=== PATIENT | female | born 1955 ===

== ENCOUNTER 2017-05-16 17:55 | Inpatient (IN) | payer MEDICARE ==
[2017-05-16 17:55] VITALS: BMI 31.6
[2017-05-16] MEDS ORDERED: Albuterol-Ipratrop 3 mg / 0.5 (3 ml) UD ONE (18:19)
[2017-05-16] MEDS ORDERED: Albuterol-Ipratrop 3 mg / 0.5 (3 ml) UD INH STA (18:34)
[2017-05-16 19:04] LABS: BASO # 0.1 K/uL (0.0-0.2); BASO % 0.8 % (0.0-2.0); EOS # 0.6 K/uL (0.0-0.7); EOS % 6.6 % (0.0-4.0); HEMATOCRIT 41.5 % (34.0-47.0); LYMPH # 3.2 K/uL (1.0-4.3); LYMPH % 36.5 % (20.0-40.0); MEAN CELL VOLUME 89.6 fl (81.0-99.0); MEAN CORPUSCULAR HEMOGLOBIN 29.9 pg (27.0-31.0); MEAN CORPUSCULAR HGB CONC 33.4 g/dL (33.0-37.0); MEAN PLATELET VOLUME 8.2 fl (7.2-11.7); MONO # 0.7 K/uL (0.0-0.8); MONO % 7.6 % (0.0-10.0); NEUT # 4.3 K/uL (1.8-7.0); NEUT % 48.5 % (50.0-75.0); NRBC % 0.1 % (0.0-0.0); WHITE BLOOD COUNT 8.8 K/uL (4.8-10.8)
[2017-05-16 19:20] LABS: ALB/GLOB RATIO 1.3 (1.0-2.1); BILIRUBIN,TOTAL 0.6 mg/dl (0.2-1.3); CALCIUM 9.1 mg/dL (8.4-10.2); CARBON DIOXIDE 27 mmol/L (22-30); CHLORIDE 105 mmol/L (98-107); GFR AFRICAN-AMERICAN > 60; GLUCOSE,RANDOM 150 mg/dL (65-105); SODIUM 140 mmol/l (132-148); TOTAL PROTEIN 7.4 G/DL (6.3-8.2)
--- NOTE | 2017-05-16 19:23 | ED PDOC ---
HPI: SOB/CHF/COPD Time Seen by Provider: 05/16/17 18:06 Chief Complaint (Nursing): Respiratory Distress Chief Complaint (Provider): Shotness of Breath History Per: Patient History/Exam Limitations: no limitations Onset/Duration Of Symptoms: Days (x 4) Current Symptoms Are (Timing): Still Present Additional Complaint(s): 61 year old female with a past medical history of hypertension, diabetes, and hypercholesterolemia who presents to the emergency department complaining shortness of breath and asthma for 4 days. Associated with cough and green sputum. Patient reports shortness of breath worsened despite taking medications at home, as well as chills and chest tightness. Denies fever, nasal discharge, sore throat, chest pain and leg swelling. PMD: Dr Kenneth Hughes MD Past Medical History Reviewed: Historical Data, Nursing Documentation, Vital Signs Vital Signs: Last Vital Signs Temp 98.2 F 05/16/17 20:40 Pulse 79 05/16/17 23:05 Resp 18 05/16/17 23:05 BP 123/67 05/16/17 23:05 Pulse Ox 95 05/16/17 23:05 - Medical History PMH: Anxiety, Asthma, Bipolar Disorder, Depression, Diabetes, Diverticulitis, Gastritis, HTN, Hypercholesterolemia Denies: Chronic Kidney Disease - Surgical History Other surgeries: Cardiac Catheterization - Family History Family History: States: Diabetes, Hypertension - Social History Current smoker - smoking cessation education provided: No Alcohol: None Drugs: Denies - Home Medications Home Medications: Ambulatory Orders Medication Instructions Recorded Aspirin 81 mg PO HS 10/20/14 Budesonide/Formoterol Fumarate 2 puff IH BID 10/20/14 [Symbicort] Calcium/Vitamin D [Calcium + D 600 1 tab PO BID 10/20/14 mg-200 Iu] Montelukast [Singulair] 10 mg PO HS 10/20/14 Omeprazole [Prilosec] 40 mg PO DAILY 10/20/14 Atorvastatin Calcium [Lipitor] 40 mg PO DAILY #0 tab 10/21/14 Albuterol HFA [Ventolin HFA 90 90 mcg PO PRN PRN 30 Days 01/24/17 mcg/actuation (8 g)] Lisinopril [Zestril] 40 mg PO DAILY #30 01/24/17 Mometasone/Formoterol [Dulera 200 13 gm IH Q12 #1 hfa.aer.ad 01/24/17 Mcg/5 Mcg Inhaler] hydroCHLOROthiazide [Hydrodiuril] 25 mg PO DAILY #30 01/24/17 metFORMIN [glucOPHAGE] 500 mg PO BID #30 01/24/17 - Allergies Allergies/Adverse Reactions: Allergies Allergy/AdvReac Type Severity Reaction Status Date / Time iodine Allergy RASH Verified 05/16/17 20:31 Review of Systems ROS Statement: Except As Marked, All Systems Reviewed And Found Negative (as per HPI otherwise negative) Constitutional: Positive for: Chills. Negative for: Fever ENT: Negative for: Nose Discharge, Throat Pain (Sore throat) Cardiovascular: Positive for: Other (Chest tightness). Negative for: Chest Pain Respiratory: Positive for: Cough, Shortness of Breath, Sputum (Green) Musculoskeletal: Negative for: Leg Pain (Swelling) Physical Exam - Reviewed Nursing Documentation Reviewed: Yes Vital Signs Reviewed: Yes - Physical Exam Appears: Positive for: Non-toxic, In Acute Distress (moderate respiratory) Head Exam: Positive for: ATRAUMATIC, NORMOCEPHALIC Skin: Positive for: Warm, Dry Eye Exam: Positive for: EOMI, PERRL ENT: Positive for: Pharyngeal Erythema. Negative for: Tonsillar Exudate, Tonsillar Swelling Neck: Positive for: Limited ROM (tenderness LEFT posterior cervical area, reported as ongoing for months and has had lymphadenopathy at this area), Trachea Midline Cardiovascular/Chest: Positive for: Regular Rate, Rhythm, Chest Non Tender. Negative for: Murmur Respiratory: Positive for: Wheezing, Respiratory Distress. Negative for: Rales , Rhonchi Gastrointestinal/Abdominal: Positive for: Soft. Negative for: Tenderness Back: Positive for: Normal Inspection. Negative for: Decreased ROM Extremity: Positive for: Normal ROM. Negative for: Calf Tenderness Lymphatic: Negative for: Adenopathy Neurologic/Psych: Positive for: Alert, Mood/Affect (anxious affect). Negative for: Motor/Sensory Deficits - Laboratory Results Result Diagrams: 05/16/17 18:59 05/16/17 18:59 - ECG O2 Sat by Pulse Oximetry: 94 (RA) Pulse Ox Interpretation: Normal - Progress Re-evaluation Time: 20:00 Condition: Unchanged (IV Magnesium ordered) - Critical Care Total Time (In Min): 30 Documented Critical Care: Time excludes all time spent performint seperately billable procedures Medical Decision Making Medical Decision Making: Time: 1800 Initial Impression: Asthma exacerbation, differential diagnoses also include but are not limited to pneumonia, pleural effusion, status asthmaticus, congestive heart failure, and Acute Coronary Syndrome Initial plan: Time: 18:33 - Chest X-Ray -EKG -Duoneb 9 ml INH -methylprednisolone 125 mg IVP -cardiac Monitoring -accucheck Time: 1858 -Labs -Partial thromboplastin -Prothrombin -Blood culture -Influenza A B Influenza A B -Negative Time: 2024 Admit to hospital under observation in telemetry for status asthmaticus under the care of Dr. Jesika Jones Scribe Attestation: Documented by Flakita Stone, acting as a scribe for Nancy Dixon MD. Provider Scribe Attestation: All medical record entries made by the Scribe were at my direction and personally dictated by me. I have reviewed the chart and agree that the record accurately reflects my personal performance of the history, physical exam, medical decision making, and the department course for this patient. I have also personally directed, reviewed, and agree with the discharge instructions and disposition. Disposition - Clinical Impression Clinical Impression: Acute respiratory distress, Asthma with severe exacerbation - Patient ED Disposition Is Patient to be Admitted: Yes Discussed With : Mahesh Bowling Comment: FP resident Doctor Will See Patient In The: ED Counseled Patient/Family Regarding: Studies Performed, Diagnosis - Disposition Disposition: Transfer of Care (to observation in telemetry under the care of Dr. Jesika Jones) Disposition Time: 20:25 Condition: SERIOUS - Pt Status Changed To: Hospital Disposition Of: Observation - POA Present On Arrival: None
[2017-05-16 19:26] LABS: PARTIAL THROMBOPLASTIN TIME 30.6 Seconds (25.6-37.1)
[2017-05-16 19:30] LABS: ALKALINE PHOSPHATASE 75 U/L (38-126); ALT/SGPT 33 U/L (9-52); AST/SGOT 29 U/L (14-36); BLOOD UREA NITROGEN 20 mg/dl (7-17); MAGNESIUM 2.1 MG/DL (1.6-2.3); PHOSPHOROUS 3.5 mg/dl (2.5-4.5); POTASSIUM 4.8 MMOL/L (3.6-5.0)
[2017-05-16] MEDS ORDERED: Magnesium Sulfate 2 gm/50 ml 2 GM/50 ML BAG IVPB STA (20:20)
--- NOTE | 2017-05-16 21:33 | CP.PCM.HP ---
History of Present Illness - History of Present Illness History of Present Illness: 61 y/o female with a PMHx of mild persistent asthma, HTN, HLD, GERD, NIDDM2, and Bipolar disorder presents to [facility] ED with a CC of SOB. Pt reports SOB began approx 4 days ago w/o any triggering event/exposure. She reports she was using her medications as prescribed and they were some what alleviating the SOB, hence the delay in presentation. Today she realized the SOB was getting worse, and she had an associated chest tightness and minimally productive cough. She reports she felt as if "she couldnt get enough air resting or walk to her bathroom" so she came in for evaluation. She denies any recent URIs, sick contacts, exposure to allergens, medical noncompliance. She denies any fever/ chills, rhinorhea, sore throat, lightheadedness, CP/Palpitations, N/V/D/C, numbness/tingling, calf pain. ROS: as per HPI, all other systems reviewed found to be negative PMD: Dr. Kenneth Hughes PMHx: Mild Persistent Asthma, NIDDM2, HTN, HLD, Bipolar Disorder Medications: Symbicort 2puff BID, Ventolin 90mcg , Montelukast 10mg PO QD, Omeprazole 20mg PO BID, HCTZ 25mg PO QD, Lisinopril 40mg PO QD, Metformin 500mg PO BID ALL: iodine, season allergies, dust/mold PSurgHx: Hysterectomy, LUQ Lipoma excision, Oophorectomy, Cardiac Cath PHospHx: reports being admitted 2 times this year (2017) for asthma exacerbations, reports tx with magnesium and steroids, denies intubation/ICU. SocialHx: denies tobacco abuse, ETOH/drugs; lives alone, daughter lives in [place], son lives in [place] Contact: son: JENNIFER Becker [phone] FamilyHx: Mother at 84-cardiac arrest/DM Type 2; Father at 70-liver failure/hepatitis, siblings with HTN and asthma ED Course: Vitals on Presentation: T 97.9, HR 81, RR 22, BP 156/83, POX 90% RA Labs CBC: 8.8>13.9/41.5<319 CMP: K: 4.8, Ma.1, BUN/Cr: 20/0.6 Troponin I: <0.0120 NT-PBNP: 111 Coags: 11.4/1.0/30.6 Influenza A/B: negative ABG not performed as pt DECLINED Imaging CXR EKG: ~75bpm, NSR, no axis deviation, normal FL/QTC intervals, inverted T-waves in V1 (compared to 01/24/17 and 01/21/2017 ekg, no change) Treatment: 9ml Duo-Neb INH Methylprednisolone 125mg IV Magnesium 2gm IV Present on Admission - Present on Admission Any Indicators Present on Admission: No Past Patient History - Past Medical History & Family History Past Medical History?: Yes - Past Social History Alcohol: None Drugs: Denies - CARDIAC Hx Hypercholesterolemia: Yes Hx Hypertension: Yes - PULMONARY Hx Asthma: Yes - NEUROLOGICAL Hx Neurological Disorder: No - HEENT Hx HEENT Problems: No - RENAL Hx Chronic Kidney Disease: No - ENDOCRINE/METABOLIC Hx Endocrine Disorders: Yes Hx Diabetes Mellitus Type 2: Yes - HEMATOLOGICAL/ONCOLOGICAL Hx Blood Disorders: No - INTEGUMENTARY Hx Dermatological Problems: No - MUSCULOSKELETAL/RHEUMATOLOGICAL Hx Musculoskeletal Disorders: No Hx Falls: No - GASTROINTESTINAL Hx Diverticulitis: Yes Hx Gastritis: Yes - GENITOURINARY/GYNECOLOGICAL Hx Genitourinary Disorders: No - PSYCHIATRIC Hx Anxiety: Yes Hx Bipolar Disorder: Yes Hx Depression: Yes - SURGICAL HISTORY Hx Surgeries: Yes Hx Cardiac Catheterization: Yes Hx Hysterectomy: Yes Other/Comment: left lypoma. oophorectomy - ANESTHESIA Hx Anesthesia: Yes Hx Anesthesia Reactions: No Hx Malignant Hyperthermia: No Meds Allergies/Adverse Reactions: Allergies Allergy/AdvReac Type Severity Reaction Status Date / Time iodine Allergy RASH Verified 05/16/17 20:31 Physical Exam - Constitutional Appears: Non-toxic, No Acute Distress Additional comments: pt examined in ED room 24, sitting straight up in bed. Pt is able to talk in complete sentences. - Head Exam Head Exam: ATRAUMATIC, NORMOCEPHALIC - Eye Exam Eye Exam: EOMI. absent: Conjunctival injection, Scleral icterus Pupil Exam: PERRL - ENT Exam ENT Exam: Mucous Membranes Moist - Neck Exam Neck exam: Positive for: Full Rom. Negative for: Lymphadenopathy - Respiratory Exam Respiratory Exam: Decreased Breath Sounds (bibasilar decreased breath sounds ), Prolonged Expiratory Phase, Wheezes (inspiratory and expiratory wheezing in appreciated throughout both lung gasca, superior to inferior). absent: Accessory Muscle Use, Clear to Auscultation Bilateral, Rales, Respiratory Distress, Stridor - Cardiovascular Exam Cardiovascular Exam: REGULAR RHYTHM, RRR, +S1, +S2. absent: Tachycardia, Gallop , JVD, Rubs, Systolic Murmur - GI/Abdominal Exam GI & Abdominal Exam: Normal Bowel Sounds, Soft. absent: Distended, Firm, Guarding, Rebound, Rigid, Tenderness Additional comments: no abdominal paradox appreciated - Extremities Exam Extremities exam: Positive for: normal capillary refill, normal inspection, pedal pulses present. Negative for: calf tenderness, pedal edema, tenderness - Back Exam Back exam: NORMAL INSPECTION. absent: CVA tenderness (L), CVA tenderness (R) - Neurological Exam Neurological exam: Alert, CN II-XII Intact, Oriented x3, Reflexes Normal - Psychiatric Exam Psychiatric exam: Normal Affect, Normal Mood - Skin Skin Exam: Dry, Intact, Normal Color, Warm Results - Vital Signs Recent Vital Signs: Last Vital Signs Temp 98.2 F 05/16/17 20:40 Pulse 81 05/16/17 20:40 Resp 19 05/16/17 20:40 BP 158/80 H 05/16/17 20:40 Pulse Ox 94 L 05/16/17 21:27 - Labs Result Diagrams: 05/16/17 18:59 05/16/17 18:59 Labs: Laboratory Results - last 24 hr 05/16/17 05/16/17 05/16/17 18:59 18:59 18:59 WBC 8.8 RBC 4.63 Hgb 13.9 Hct 41.5 MCV 89.6 MCH 29.9 MCHC 33.4 RDW 13.0 Plt Count 319 MPV 8.2 Neut % (Auto) 48.5 L Lymph % (Auto) 36.5 [place] % (Auto) 7.6 Eos % (Auto) 6.6 H Baso % (Auto) 0.8 Neut # 4.3 Lymph # 3.2 [place] # 0.7 Eos # 0.6 Baso # 0.1 PT INR APTT Sodium 140 Potassium 4.8 Chloride 105 Carbon Dioxide 27 Anion Gap 13 BUN 20 H Creatinine 0.6 L Est GFR ( Amer) > 60 Est GFR (Non-Af Amer) > 60 Random Glucose 150 H Calcium 9.1 Phosphorus 3.5 Magnesium 2.1 Total Bilirubin 0.6 AST 29 ALT 33 Alkaline Phosphatase 75 Troponin I < 0.0120 NT-Pro-B Natriuret Pep 111 Total Protein 7.4 Albumin 4.2 Globulin 3.2 Albumin/Globulin Ratio 1.3 Influenza Typ A,B (EIA) Negative for flu a/b 05/16/17 18:59 WBC RBC Hgb Hct MCV MCH MCHC RDW Plt Count MPV Neut % (Auto) Lymph % (Auto) [place] % (Auto) Eos % (Auto) Baso % (Auto) Neut # Lymph # [place] # Eos # Baso # PT 11.4 INR 1.0 APTT 30.6 Sodium Potassium Chloride Carbon Dioxide Anion Gap BUN Creatinine Est GFR ( Amer) Est GFR (Non-Af Amer) Random Glucose Calcium Phosphorus Magnesium Total Bilirubin AST ALT Alkaline Phosphatase Troponin I NT-Pro-B Natriuret Pep Total Protein Albumin Globulin Albumin/Globulin Ratio Influenza Typ A,B (EIA) Assessment & Plan - Assessment and Plan (Free Text) Assessment: Assessment: 61 y/o female with PMHx of Mild Persistent Asthma, NIDDM2, HTN, HLD, and Bipolar Disorder admitted for acute Asthma exacerbation. Plan: 1) Acute Asthma Exacerbation -Admitted to tele for further management/monitoring -s/p IV 2gm Mag in ED -f/u Mag Level -continuous O2 via NC @ 2L to maintain POX >90% -DuoNeb 3mL INH Q4 ENRIQUE -DuoNeb 3mL INH Q4H PRN -Methylprednisone 60mg IV Q12H -Montelukast 10mg PO QD -monitor vitals -heart healthly/low sodium/low carb diet 2) NIDDM2 -controlled -c/w Metformin 500mg PO BID -accucheck ACHS 3) Essential Hypertension -controlled -c/w Lisinopril 40mg PO QD, HCTZ 25 mg PO QD, Aspirin 81mg PO QD 4) GERD -controlled -c/w with Prilosec OTC 40mg QD 5) Hyperlipidemia -controlled -c/w Atorvastatin 40mg PO HS 6) Bipolar disorder -stable, chronic -not currently on medications 7) DVT prophylaxis -CrCl: 127 mL/hr -Lovenox 40mg SC QD
[2017-05-16] MEDS ORDERED: Albuterol-Ipratrop 3 mg / 0.5 (3 ml) UD INH PRN (21:50)
[2017-05-17] MEDS ORDERED: Influenza Vaccine 18yr & older 0.5 ML/45 MCG SYR IM ONE (00:52)
[2017-05-17] MEDS ORDERED: Pneumococcal 23-Valent Vaccine IM ONE (00:52)
[2017-05-17] MEDS ORDERED: methylPREDNISolone 40 MG in Sodium Chloride 0.9% 50 ML IVPB SCH (01:00)
[2017-05-17 06:30] LABS: ALB/GLOB RATIO 1.4 (1.0-2.1); ALKALINE PHOSPHATASE 81 U/L (38-126); ALT/SGPT 29 U/L (9-52); AST/SGOT 23 U/L (14-36); BILIRUBIN,TOTAL 0.3 mg/dl (0.2-1.3); BLOOD UREA NITROGEN 18 mg/dl (7-17); CALCIUM 8.9 mg/dL (8.4-10.2); CARBON DIOXIDE 20 mmol/L (22-30); CHLORIDE 106 mmol/L (98-107); GFR AFRICAN-AMERICAN > 60; GLUCOSE,RANDOM 350 mg/dL (65-105); POTASSIUM 4.3 MMOL/L (3.6-5.0); SODIUM 139 mmol/l (132-148); TOTAL PROTEIN 7.1 G/DL (6.3-8.2)
[2017-05-17] MEDS: Insulin Regular 100 units/ml SC SCH ×4 (06:45→23:54)
--- NOTE | 2017-05-17 07:43 | CARD ---
APPROVED REPORT EKG Measurement Heart [id number] [id number] <Conclusion> Normal sinus rhythm Normal ECG
--- NOTE | 2017-05-17 08:00 | CP.PCM.PN ---
Subjective - Date & Time of Evaluation Date of Evaluation: 05/17/17 Time of Evaluation: 07:35 - Subjective Subjective: 61 y/o F admitted for asthma exacerbation seen at bedside in not acute distress. Patient speaking in full sentences, no evident resp distress and tolerates flat decubitus. Afebrile. Denies CP, palpitations, vomiting, nausea, changes in urination or stools. Patient states she has been feeling tired and with worsening exercise tolerance for the past 2 years. She admits daytime somnolence occasionally and snoring. Objective - Vital Signs/Intake and Output Vital Signs (last 24 hours): Temp Pulse Resp BP Pulse Ox 97.6 F 82 18 128/71 96 05/17/17 04:47 05/17/17 04:47 05/17/17 04:47 05/17/17 04:47 05/17/17 04:47 - Medications Medications: Current Medications Albuterol/Ipratropium (Duoneb 3 Mg/0.5 Mg (3 Ml) Ud) 3 ml INH RQID ENRIQUE Albuterol/Ipratropium (Duoneb 3 Mg/0.5 Mg (3 Ml) Ud) 3 ml INH RQ4 PRN PRN Reason: Shortness of Breath Last Admin: 05/16/17 21:59 Dose: 3 ml Aspirin (Aspirin Chewable) 81 mg PO HS [facility] Last Admin: 05/16/17 22:28 Dose: 81 mg Atorvastatin Calcium (Lipitor) 40 mg PO HS [facility] Calcium/Vitamin D (Oyster Shell Calcium/Vitamin D 500 Mg-200 Iu) 1 tab PO BID [facility] Enoxaparin Sodium (Lovenox) 40 mg SC DAILY [facility] PRN Reason: Protocol Hydrochlorothiazide (Hydrodiuril) 25 mg PO DAILY [facility] Insulin Human Regular (Humulin R) 0 units SC ACCU-CHECK [facility] PRN Reason: Protocol Last Admin: 05/17/17 06:45 Dose: 6 units Lisinopril (Zestril) 40 mg PO DAILY [facility] Metformin HCl (Glucophage) 500 mg PO BID [facility] Montelukast Sodium (Singulair) 10 mg PO HS [facility] Last Admin: 05/16/17 22:29 Dose: 10 mg Pantoprazole Sodium (Protonix Ec Tab) 40 mg PO DAILY [facility] Fluticasone/Salmeterol (Advair Diskus 250/50) 1 puff IH Q12 [facility] - Labs Labs: 05/16/17 18:59 05/17/17 04:10 PT 11.4 Seconds (9.8-13.1) 05/16/17 18:59 INR 1.0 (0.9-1.2) 05/16/17 18:59 APTT 30.6 Seconds (25.6-37.1) 05/16/17 18:59 - Constitutional Appears: Non-toxic - Head Exam Head Exam: NORMAL INSPECTION - Eye Exam Eye Exam: Normal appearance - ENT Exam ENT Exam: Mucous Membranes Moist - Respiratory Exam Respiratory Exam: Decreased Breath Sounds, Rhonchi, Wheezes. absent: Accessory Muscle Use, Prolonged Expiratory Phase, Rales - Cardiovascular Exam Cardiovascular Exam: REGULAR RHYTHM, +S1, +S2. absent: Gallop - GI/Abdominal Exam GI & Abdominal Exam: Soft. absent: Guarding, Tenderness, Rebound - Extremities Exam Extremities Exam: Normal Capillary Refill. absent: Calf Tenderness, Pedal Edema - Neurological Exam Neurological Exam: Alert, Awake, Oriented x3 - Psychiatric Exam Psychiatric exam: Anxious - Skin Skin Exam: Normal Color, Warm Assessment and Plan - Assessment and Plan (Free Text) Assessment: 61 y/o female with PMHx of Mild Persistent Asthma, NIDDM2, HTN, HLD, and Bipolar Disorder admitted for Asthma exacerbation. Plan: Moderate Asthma with Exacerbation -Solumedrol 60mg daily IV -Duoneb sched and PRN for SOB -O2 PRN for SOB -C/W Montelukast 10mg PO QD -Advair diskus restarted higher dose that patient was using at home. NIDDM2 -Uncontrolled since admission. Likely due to steroids use -c/w Metformin 500mg PO BID -accucheck ACHS -Start Levemir 10 units SQ HS for now -Will continue monitoring -Patient needs steroids for asthma exacerbation Fatigue -Chronic -R/O Cardiac vs Sleep apnea -Cardiac stress test with no ischemic changes from 12/18/14 -EKG on admission, unremarkable. -TnI normal x1 -Echocardiogram ordered -Recommend Sleep studies as outpatient. Essential Hypertension -controlled -c/w current meds GERD -controlled -c/w with current plan Hyperlipidemia -controlled -c/w current med Bipolar disorder -stable, chronic, Patient's Hx -not currently on medications DVT prophylaxis -Lovenox 40mg SC QD
[2017-05-17] MEDS: Albuterol-Ipratrop 3 mg / 0.5 (3 ml) UD INH SCH ×4 (08:23→19:57)
[2017-05-17] MEDS: Enoxaparin 40 mg Syringe SC SCH (08:51)
[2017-05-17] MEDS: Pantoprazole 40 mg EC Tab PO SCH (08:51)
[2017-05-17] MEDS: Calcium-Vit D 500 mg-200 Units Tab UD PO SCH ×2 (08:51→16:31)
[2017-05-17] MEDS ORDERED: Fluticasone-Salmeterol 250-50mcg Diskus IH SCH (09:00)
[2017-05-17] MEDS ORDERED: VITAMIN D PO SCH (09:00)
[2017-05-17] MEDS ORDERED: methylPREDNISolone 60 MG in Sodium Chloride 0.9% 50 ML IVPB SCH ×2 (09:00→21:00)
[2017-05-17] MEDS ORDERED: CALCIUM PO SCH (09:00)
--- NOTE | 2017-05-17 09:40 | RAD ---
HISTORY: sob COMPARISON: 06/07/2016 TECHNIQUE: Chest PA and lateral FINDINGS: LUNGS: No active pulmonary disease. A 2 mm nodule right upper lung zone may represent the CT referenced tiny granuloma the CTs from 08/26/2016 PLEURA: No significant pleural effusion identified. No pneumothorax apparent. CARDIOVASCULAR: Normal. Tortuous thoracic aorta- no change in caliber caliber still within normal limits. OSSEOUS STRUCTURES: No significant abnormalities. VISUALIZED UPPER ABDOMEN: Normal. OTHER FINDINGS: None. IMPRESSION: No significant pulmonary venous congestion. No consolidative infiltrate or atelectasis. No pneumothorax
[2017-05-17] MEDS: Fluticasone-Salmeterol 500-50mcg Diskus IH SCH (21:29)
[2017-05-17] MEDS ORDERED: Insulin Detemir 100 Units/ml Inj SC SCH (22:00)
[2017-05-17] MEDS: Insulin Detemir 100 Units/ml Inj SC SCH (23:56)
[2017-05-18 05:51] LABS: BASO # 0.1 K/uL (0.0-0.2); BASO % 0.5 % (0.0-2.0); EOS % 0.3 % (0.0-4.0); HEMATOCRIT 41.1 % (34.0-47.0); LYMPH # 2.8 K/uL (1.0-4.3); LYMPH % 25.9 % (20.0-40.0); MEAN CELL VOLUME 90.3 fl (81.0-99.0); MEAN CORPUSCULAR HEMOGLOBIN 30.1 pg (27.0-31.0); MEAN CORPUSCULAR HGB CONC 33.3 g/dL (33.0-37.0); MEAN PLATELET VOLUME 8.8 fl (7.2-11.7); MONO # 0.8 K/uL (0.0-0.8); NEUT # 7.2 K/uL (1.8-7.0); NEUT % 66.3 % (50.0-75.0); WHITE BLOOD COUNT 10.8 K/uL (4.8-10.8)
[2017-05-18] MEDS: Insulin Regular 100 units/ml SC SCH ×5 (06:37→22:01)
[2017-05-18 06:44] LABS: ALB/GLOB RATIO 1.3 (1.0-2.1); ALKALINE PHOSPHATASE 69 U/L (38-126); ALT/SGPT 33 U/L (9-52); AST/SGOT 16 U/L (14-36); BILIRUBIN,TOTAL 0.5 mg/dl (0.2-1.3); BLOOD UREA NITROGEN 19 mg/dl (7-17); CALCIUM 9.3 mg/dL (8.4-10.2); CARBON DIOXIDE 27 mmol/L (22-30); CHLORIDE 104 mmol/L (98-107); GFR AFRICAN-AMERICAN > 60; GLUCOSE,RANDOM 207 mg/dL (65-105); POTASSIUM 3.9 MMOL/L (3.6-5.0); SODIUM 140 mmol/l (132-148); TOTAL PROTEIN 6.9 G/DL (6.3-8.2)
[2017-05-18] MEDS: Albuterol-Ipratrop 3 mg / 0.5 (3 ml) UD INH SCH ×4 (07:22→20:01)
[2017-05-18] MEDS: Fluticasone-Salmeterol 500-50mcg Diskus IH SCH ×2 (08:36→21:05)
[2017-05-18] MEDS: Pantoprazole 40 mg EC Tab PO SCH (08:37)
[2017-05-18] MEDS: Calcium-Vit D 500 mg-200 Units Tab UD PO SCH ×2 (08:38→17:32)
[2017-05-18] MEDS: Enoxaparin 40 mg Syringe SC SCH (08:39)
--- NOTE | 2017-05-18 12:21 | CP.PCM.PN ---
Subjective - Date & Time of Evaluation Date of Evaluation: 05/18/17 Time of Evaluation: 07:55 - Subjective Subjective: 61 y/o F seen at bedside. No acute events overnight. Patient still c/o feeling tired easily. Echo report pending. She is able to tolerate flat decubitus. Denies CP, palpitations, vomiting, nausea, abd pain. O2sat WNL at RA. Patient feels "better". Patient revaluate 1 hour and 2 hours after initial evaluation. O2sat stable w/o O2 and patient in not acute distress. However she has SOB with minimal exertion and persistent cough. Complains of flushing and heat after solumedrol admin. Objective - Vital Signs/Intake and Output Vital Signs (last 24 hours): Temp Pulse Resp BP Pulse Ox 97.7 F 65 20 103/68 95 05/18/17 08:00 05/18/17 09:00 05/18/17 08:00 05/18/17 08:37 05/18/17 08:00 - Medications Medications: Current Medications Albuterol/Ipratropium (Duoneb 3 Mg/0.5 Mg (3 Ml) Ud) 3 ml INH RQID [facility] Last Admin: 05/18/17 11:17 Dose: 3 ml Albuterol/Ipratropium (Duoneb 3 Mg/0.5 Mg (3 Ml) Ud) 3 ml INH RQ4 PRN PRN Reason: Shortness of Breath Last Admin: 05/16/17 21:59 Dose: 3 ml Aspirin (Aspirin Chewable) 81 mg PO HS [facility] Last Admin: 05/17/17 21:29 Dose: 81 mg Atorvastatin Calcium (Lipitor) 40 mg PO HS [facility] Last Admin: 05/17/17 21:29 Dose: 40 mg Calcium/Vitamin D (Oyster Shell Calcium/Vitamin D 500 Mg-200 Iu) 1 tab PO BID [facility] Last Admin: 05/18/17 08:38 Dose: 1 tab Enoxaparin Sodium (Lovenox) 40 mg SC DAILY [facility] PRN Reason: Protocol Last Admin: 05/18/17 08:39 Dose: 40 mg Hydrochlorothiazide (Hydrodiuril) 25 mg PO DAILY [facility] Last Admin: 05/18/17 08:37 Dose: 25 mg Insulin Detemir (Levemir) 10 units SC [facility] Last Admin: 05/17/17 23:56 Dose: 10 units Insulin Human Regular (Humulin R) 0 units SC ACCU-CHECK [facility] PRN Reason: Protocol Last Admin: 05/18/17 06:37 Dose: Not Given Lisinopril (Zestril) 40 mg PO DAILY [facility] Last Admin: 05/18/17 08:37 Dose: 40 mg Metformin HCl (Glucophage) 500 mg PO BID [facility] Last Admin: 05/18/17 08:37 Dose: 500 mg Methylprednisolone (Solu-Medrol) 60 mg IVP DAILY [facility] Last Admin: 05/18/17 08:40 Dose: 60 mg Montelukast Sodium (Singulair) 10 mg PO HS [facility] Last Admin: 05/17/17 21:29 Dose: 10 mg Pantoprazole Sodium (Protonix Ec Tab) 40 mg PO DAILY [facility] Last Admin: 05/18/17 08:37 Dose: 40 mg Fluticasone/Salmeterol (Advair Diskus 500/50) 1 puff IH Q12 [facility] Last Admin: 05/18/17 08:36 Dose: 1 puff - Labs Labs: 05/18/17 04:25 05/18/17 04:25 PT 11.4 Seconds (9.8-13.1) 05/16/17 18:59 INR 1.0 (0.9-1.2) 05/16/17 18:59 APTT 30.6 Seconds (25.6-37.1) 05/16/17 18:59 - Constitutional Appears: Non-toxic, In Acute Distress - Eye Exam Eye Exam: EOMI, PERRL - ENT Exam ENT Exam: Mucous Membranes Moist - Respiratory Exam Respiratory Exam: Rales (scattered.), Wheezes (occasional diffuse with deep inspiration). absent: Accessory Muscle Use, Prolonged Expiratory Phase, Respiratory Distress - Cardiovascular Exam Cardiovascular Exam: REGULAR RHYTHM, +S1, +S2. absent: Gallop - GI/Abdominal Exam GI & Abdominal Exam: Soft, Normal Bowel Sounds. absent: Distended, Tenderness, Rebound - Extremities Exam Extremities Exam: Normal Capillary Refill. absent: Calf Tenderness, Joint Swelling, Pedal Edema - Back Exam Back Exam: absent: CVA tenderness (L), CVA tenderness (R) - Neurological Exam Neurological Exam: Alert, Awake, Oriented x3 - Psychiatric Exam Psychiatric exam: Normal Affect, Normal Mood - Skin Skin Exam: Normal Color, Warm Assessment and Plan - Assessment and Plan (Free Text) Assessment: 61 y/o female with PMHx of Mild Persistent Asthma, NIDDM2, HTN, HLD, admitted for Asthma exacerbation. Moderate Asthma with Exacerbation -Switch to PO prednisone 60 mg daily starting tomorrow -stop Solumedrol 60mg daily IV -Duoneb sched and PRN for SOB -O2 PRN for SOB -C/W Montelukast 10mg PO QD -Admitted not taking Inh steroids at home because unable to afford it. Patient' s Ph closed today. -Anticipated DC tomorrow: WIll radha Ph for prices on inh steroids tomorrow and if unable to afford it will place SW consult. We think patient needs inh steroids when she goes home. NIDDM2 -Uncontrolled since admission. Likely due to steroids use -c/w Metformin 500mg PO BID -accucheck ACHS -C/W Levemir 10 units SQ HS for now -Will continue monitoring -Patient needs steroids for asthma exacerbation Fatigue -Chronic -R/O Cardiac vs Sleep apnea -Cardiac stress test with no ischemic changes from 12/18/14 -EKG on admission, unremarkable. -TnI normal x1 -Echocardiogram report pending -Recommend Sleep studies as outpatient. Essential Hypertension -controlled -c/w current meds GERD -controlled -c/w with current plan Hyperlipidemia -controlled -c/w current med Bipolar disorder -stable, chronic, Patient's Hx -not currently on medications DVT prophylaxis -Lovenox 40mg SC QD
[2017-05-18] MEDS: Insulin Detemir 100 Units/ml Inj SC SCH (21:07)
[2017-05-19] MEDS: Insulin Regular 100 units/ml SC SCH ×2 (06:25→15:44)
[2017-05-19] MEDS: Albuterol-Ipratrop 3 mg / 0.5 (3 ml) UD INH SCH ×2 (07:55→11:19)
[2017-05-19 08:04] VITALS: RESP 20
[2017-05-19] MEDS: Fluticasone-Salmeterol 500-50mcg Diskus IH SCH (08:35)
[2017-05-19] MEDS: Enoxaparin 40 mg Syringe SC SCH (08:36)
[2017-05-19] MEDS: Pantoprazole 40 mg EC Tab PO SCH (08:36)
[2017-05-19] MEDS: Calcium-Vit D 500 mg-200 Units Tab UD PO SCH (08:37)
--- NOTE | 2017-05-19 10:37 | CARD ---
APPROVED REPORT EXAM: Two-dimensional and M-mode echocardiogram with Doppler and color Doppler. Other Information Quality : GoodRhythm : NSR INDICATION Dyspnea 2D DIMENSIONS IVSd0.98 (0.7-1.1cm)LVDd4.25 (3.9-5.9cm) LVOT Diameter1.95 (1.8-2.4cm)PWd1.10 (0.7-1.1cm) IVSs1.41 (0.8-1.2cm)LVDs2.65 (2.5-4.0cm) FS (%) 37.7 %PWs1.43 (0.8-1.2cm) M-Mode DIMENSIONS Left Atrium (MM)4.21 (2.5-4.0cm)IVSd1.26 (0.7-1.1cm) Aortic Root3.00 (2.2-3.7cm)LVDd4.94 (4.0-5.6cm) Aortic Cusp Exc.1.94 (1.5-2.0cm)PWd1.24 (0.7-1.1cm) IVSs1.76 cmFS (%) 58 % LVDs2.06 (2.0-3.8cm)PWs1.79 cm Mitral Valve MV E Iryjvwsk86.6cm/sMV DECEL [id number] A Metiwdse17.6cm/s MV AHU37eaG/A ratio1.0MVA (PHT)3.98cm2 TDI Lateral E' Peak V8.80cm/sMedial E' Peak V10.51cm/sE/Lateral E'9.6 E/Medial E'8.0 Pulmonary Valve PV Peak Yhgetomj416.1cm/s LEFT VENTRICLE The left ventricle is normal size. There is normal left ventricular wall thickness. Left ventricle systolic function is normal. The Ejection Fraction is 60-65%. There is normal LV segmental wall motion. Transmitral Doppler flow pattern is Grade I-abnormal relaxation pattern. RIGHT VENTRICLE The right ventricle is normal size. There is normal right ventricular wall thickness. The right ventricular systolic function is normal. ATRIA The left atrium size is normal. The right atrium size is normal. AORTIC VALVE The aortic valve is normal in structure. No aortic regurgitation is present. There is no aortic valvular stenosis. MITRAL VALVE The mitral valve is normal in structure. There is no evidence of mitral valve prolapse. There is no mitral valve stenosis. There is no mitral valve regurgitation noted. TRICUSPID VALVE The tricuspid valve is normal in structure. There is no tricuspid valve regurgitation noted. PULMONIC VALVE The pulmonary valve is normal in structure. There is no pulmonic valvular regurgitation. GREAT VESSELS The aortic root is normal in size. The IVC is normal in size and collapses >50% with inspiration. PERICARDIAL EFFUSION The pericardium appears normal. <Conclusion> The left ventricle is normal size. There is normal left ventricular wall thickness. There is normal LV segmental wall motion. Left ventricle systolic function is normal. The Ejection Fraction is 60-65%. Transmitral Doppler flow pattern is Grade I-abnormal relaxation pattern.
--- NOTE | 2017-05-19 11:33 | CP.PCM.DIS ---
Provider - Provider Date of Admission: 05/17/17 11:28 Attending physician: Jesika Jones MD Primary care physician: Dr Kenneth Hughes Time Spent in preparation of Discharge (in minutes): 30 Diagnosis - Discharge Diagnosis (1) Asthma with severe exacerbation Status: Acute Comment: Exacerbation improved. Patient stable to be DC home and c/w treatment Hospital Course - Lab Results Lab Results: Micro Results 05/16/17 19:10 Blood-Venous Blood Culture - Preliminary NO GROWTH AFTER 48 HOURS 05/16/17 18:55 Blood-Venous Blood Culture - Preliminary NO GROWTH AFTER 48 HOURS Most Recent Lab Values WBC 10.8 K/uL (4.8-10.8) 05/18/17 04:25 RBC 4.55 Mil/uL (3.80-5.20) 05/18/17 04:25 Hgb 13.7 g/dL (12.0-16.0) 05/18/17 04:25 Hct 41.1 % (34.0-47.0) 05/18/17 04:25 MCV 90.3 fl (81.0-99.0) 05/18/17 04:25 MCH 30.1 pg (27.0-31.0) 05/18/17 04:25 MCHC 33.3 g/dL (33.0-37.0) 05/18/17 04:25 RDW 13.0 % (11.5-14.5) 05/18/17 04:25 Plt Count 306 K/uL (130-400) 05/18/17 04:25 MPV 8.8 fl (7.2-11.7) 05/18/17 04:25 Neut % (Auto) 66.3 % (50.0-75.0) 05/18/17 04:25 Lymph % (Auto) 25.9 % (20.0-40.0) 05/18/17 04:25 [place] % (Auto) 7.0 % (0.0-10.0) 05/18/17 04:25 Eos % (Auto) 0.3 % (0.0-4.0) 05/18/17 04:25 Baso % (Auto) 0.5 % (0.0-2.0) 05/18/17 04:25 Neut # 7.2 K/uL (1.8-7.0) H 05/18/17 04:25 Lymph # 2.8 K/uL (1.0-4.3) 05/18/17 04:25 [place] # 0.8 K/uL (0.0-0.8) 05/18/17 04:25 Eos # 0.0 K/uL (0.0-0.7) 05/18/17 04:25 Baso # 0.1 K/uL (0.0-0.2) 05/18/17 04:25 PT 11.4 Seconds (9.8-13.1) 05/16/17 18:59 INR 1.0 (0.9-1.2) 05/16/17 18:59 APTT 30.6 Seconds (25.6-37.1) 05/16/17 18:59 Sodium 140 mmol/l (132-148) 05/18/17 04:25 Potassium 3.9 MMOL/L (3.6-5.0) 05/18/17 04:25 Chloride 104 mmol/L (98-107) 05/18/17 04:25 Carbon Dioxide 27 mmol/L (22-30) 05/18/17 04:25 Anion Gap 13 (10-20) 05/18/17 04:25 BUN 19 mg/dl (7-17) H 05/18/17 04:25 Creatinine 0.6 mg/dl (0.7-1.2) L 05/18/17 04:25 Est GFR ( Amer) > 60 05/18/17 04:25 Est GFR (Non-Af Amer) > 60 05/18/17 04:25 POC Glucose (mg/dL) 157 mg/dL (65-110) H 05/19/17 05:16 Random Glucose 207 mg/dL (65-105) H 05/18/17 04:25 Calcium 9.3 mg/dL (8.4-10.2) 05/18/17 04:25 Phosphorus 3.5 mg/dl (2.5-4.5) 05/16/17 18:59 Magnesium 2.1 MG/DL (1.6-2.3) 05/16/17 18:59 Total Bilirubin 0.5 mg/dl (0.2-1.3) 05/18/17 04:25 AST 16 U/L (14-36) 05/18/17 04:25 ALT 33 U/L (9-52) 05/18/17 04:25 Alkaline Phosphatase 69 U/L (38-126) 05/18/17 04:25 Troponin I < 0.0120 ng/mL (0.00-0.120) 05/16/17 18:59 NT-Pro-B Natriuret Pep 111 pg/ml (0-900) 05/16/17 18:59 Total Protein 6.9 G/DL (6.3-8.2) 05/18/17 04:25 Albumin 3.9 g/dL (3.5-5.0) 05/18/17 04:25 Globulin 3.0 gm/dL (2.2-3.9) 05/18/17 04:25 Albumin/Globulin Ratio 1.3 (1.0-2.1) 05/18/17 04:25 Influenza Typ A,B (EIA) Negative for flu a/b (NEGATIVE) 05/16/17 18:59 - Hospital Course Hospital Course: 61 y/o F with PMHx of asthma presented to ED c/o persistent and severe SOB. Patient was admitted to hosp with asthma exacerbation and treatment was continued with nebulizers and steroids. Patient improved since admission and Today she is in not resp distress, no wheezing on PE, tolerating PO reg diet, and feels "much better". Patient admitted not being compliant with meds and we discussed with her the importance of taking meds as prescribed as well as the need for inh steroid treatment as outpatient for better asthma control. She verbalized understanding. Instructed to carry and how to use peak flow meter. Echo unremarkable. Home meds: Prednisone 60 mg daily for 2 days Symbicort inh 80/4.5mcg 2 puff BID Albuterol HFA PRN for SOB Aspirin 81 mg PO HS Calcium/Vitamin D 1 tab PO BID Montelukast [Singulair] 10 mg PO HS Omeprazole [Prilosec] 40 mg PO DAILY Atorvastatin Calcium [Lipitor] 40 mg PO DAILY Lisinopril [Zestril] 40 mg PO DAILY hydroCHLOROthiazide [Hydrodiuril] 25 mg PO DAILY metFORMIN [glucOPHAGE] 500 mg PO BID Since patient c/o fatigue and admits daytime somnolence we recommend Sleep studies as outpatient Discharge Exam - Head Exam Head Exam: NORMAL INSPECTION - Eye Exam Eye Exam: EOMI, PERRL - ENT Exam ENT Exam: Mucous Membranes Moist - Respiratory Exam Respiratory Exam: NORMAL BREATHING PATTERN. absent: Decreased Breath Sounds, Rales, Wheezes, Respiratory Distress - Cardiovascular Exam Cardiovascular Exam: REGULAR RHYTHM, +S1, +S2. absent: Gallop - GI/Abdominal Exam GI & Abdominal Exam: Normal Bowel Sounds, Unremarkable - Extremities Exam Extremities exam: normal capillary refill, normal inspection - Neurological Exam Neurological exam: Alert, Oriented x3 - Psychiatric Exam Psychiatric exam: Normal Affect, Normal Mood - Skin Skin Exam: Normal Color Discharge Plan - Discharge Medications Prescriptions: Budesonide/Formoterol Fumarate [Symbicort 80-4.5 Mcg Inhaler] 2 puff IH BID #1 hfa.aer.ad predniSONE [predniSONE Tab] 60 mg PO DAILY #6 tab - Follow Up Plan Condition: GOOD Disposition: HOME/ ROUTINE Patient education suggested?: Yes Instructions: How to Use a Metered-Dose Inhaler (DC) Additional Instructions: F/U with Dr Hughes on June 07/2017. [facility] julian las receta el medico Regrese a ED si la falta de air empeora, fiebre, vomito Referrals: Kenneth Hughes MD [Family Provider] -
[2017-05-19 12:58] VITALS: BP 139/83; PULSE 86; TEMP 98.5; O2SAT 93
== END 2017-05-19 15:10 | disposition home or self-care (01) | DRG 203 ==
LOC: H.ER 17:55 → H.ERHOLD 20:25 → H.TEL 23:57 → OBSVTOIN 05-17 11:28 → H.TEL 05-17 13:43
PROVIDERS: ADMIT Family Medicine Geriatric Medicine; ATTEND Family Medicine Geriatric Medicine
PROC: 3E0234Z Introduction of Serum, Toxoid and Vaccine into Muscle, Percutaneous Approach (ICD-10-PCS; principal; 2017-05-17)
DX: J45.901 Unspecified asthma with (acute) exacerbation (principal); E11.65 Type 2 diabetes mellitus with hyperglycemia; I10 Essential (primary) hypertension; T38.0X5A Adverse effect of glucocorticoids and synthetic analogues, initial encounter; E78.00 Pure hypercholesterolemia, unspecified; E78.5 Hyperlipidemia, unspecified; F31.9 Bipolar disorder, unspecified; K21.9 Gastro-esophageal reflux disease without esophagitis; Z91.14 Patient's other noncompliance with medication regimen; K29.70 Gastritis, unspecified, without bleeding; Z91.041 Radiographic dye allergy status; Z23 Encounter for immunization; F41.9 Anxiety disorder, unspecified

== ENCOUNTER 2017-10-05 20:44 | Inpatient (IN) | payer MEDICARE ==
[2017-10-05 20:44] VITALS: BMI 31.6
[2017-10-05] MEDS ORDERED: Albuterol-Ipratrop 3 mg / 0.5 (3 ml) UD ONE ×2 (21:47→22:24)
[2017-10-05] MEDS ORDERED: Albuterol-Ipratrop 3 mg / 0.5 (3 ml) UD INH STA ×3 (21:55→21:58)
--- NOTE | 2017-10-05 22:18 | ED PDOC ---
HPI: SOB/CHF/COPD Time Seen by Provider: 10/05/17 21:23 Chief Complaint (Nursing): Cough, Cold, Congestion Chief Complaint (Provider): Shortness of breath, asthma History Per: Patient History/Exam Limitations: no limitations Onset/Duration Of Symptoms: Days (x4) Current Symptoms Are (Timing): Still Present Associated Symptoms: Productive Cough, Other (congestion) Additional Complaint(s): Danni Meyer is a 62 year old female, with a past medical history of asthma, HTN and diabetes, who presents to the emergency department complaining of shortness of breath and asthma onset for x4 days. Patient has been using albuterol with no relief and states it has been getting worst. Patient reports severe chest tightness, mild rhinorrhea, cough and congestion but is unable to expel phlegm. She denies any fever, chills or leg swelling. No further medical complaints. PMD :Kenneth Hughes Past Medical History Reviewed: Historical Data, Nursing Documentation, Vital Signs Vital Signs: Last Vital Signs Temp 98.9 F 10/05/17 21:17 Pulse 77 10/05/17 21:17 Resp 18 10/05/17 21:17 BP 196/103 H 10/05/17 21:17 Pulse Ox 92 L 10/05/17 22:24 - Medical History PMH: Anxiety, Asthma, Bipolar Disorder, Depression, Diabetes, Diverticulitis, Gastritis, HTN, Hypercholesterolemia Denies: HIV, Chronic Kidney Disease - Surgical History Surgical History: No Surg Hx - Family History Family History: States: Unknown Family Hx, Diabetes, Hypertension - Social History Current smoker - smoking cessation education provided: No Alcohol: None Drugs: Denies - Home Medications Home Medications: Ambulatory Orders Medication Instructions Recorded Aspirin 81 mg PO HS 10/20/14 Calcium/Vitamin D [Calcium + D 600 1 tab PO BID 10/20/14 mg-200 Iu] Montelukast [Singulair] 10 mg PO HS 10/20/14 Omeprazole [Prilosec] 40 mg PO DAILY 10/20/14 Atorvastatin Calcium [Lipitor] 40 mg PO DAILY #0 tab 10/21/14 Albuterol HFA [Ventolin HFA 90 90 mcg PO PRN PRN 30 Days 01/24/17 mcg/actuation (8 g)] Lisinopril [Zestril] 40 mg PO DAILY #30 01/24/17 hydroCHLOROthiazide [Hydrodiuril] 25 mg PO DAILY #30 01/24/17 metFORMIN [glucOPHAGE] 500 mg PO BID #30 01/24/17 Escitalopram [Lexapro] 20 mg PO DAILY 05/17/17 Budesonide/Formoterol Fumarate 2 puff IH BID #1 hfa.aer.ad 05/19/17 [Symbicort 80-4.5 Mcg Inhaler] predniSONE [predniSONE Tab] 60 mg PO DAILY #6 tab 05/19/17 - Allergies Allergies/Adverse Reactions: Allergies Allergy/AdvReac Type Severity Reaction Status Date / Time iodine Allergy RASH Verified 05/16/17 20:31 Review of Systems ROS Statement: Except As Marked, All Systems Reviewed And Found Negative Constitutional: Negative for: Fever, Chills ENT: Positive for: Nose Discharge (mild rhinorrhea) Cardiovascular: Positive for: Chest Pain (tightness) Respiratory: Positive for: Cough (congestion), Shortness of Breath Musculoskeletal: Negative for: Leg Pain (swelling) Physical Exam - Reviewed Nursing Documentation Reviewed: Yes Vital Signs Reviewed: Yes - Physical Exam Head Exam: Positive for: ATRAUMATIC, NORMAL INSPECTION, NORMOCEPHALIC Skin: Positive for: Normal Color, Warm, Dry Eye Exam: Positive for: EOMI, PERRL ENT: Negative for: Pharyngeal Erythema, Tonsillar Exudate Neck: Positive for: Painless ROM, Supple Cardiovascular/Chest: Positive for: Regular Rate, Rhythm. Negative for: Edema, Murmur Respiratory: Positive for: Accessory Muscle Use (some ), Wheezing (diffused expiratory and inspiratory ), Respiratory Distress Gastrointestinal/Abdominal: Positive for: Soft. Negative for: Tenderness Back: Positive for: Normal Inspection. Negative for: Decreased ROM Extremity: Positive for: Normal ROM. Negative for: Deformity, Swelling Lymphatic: Negative for: Adenopathy Neurologic/Psych: Positive for: Alert, Oriented. Negative for: Motor/Sensory Deficits - Laboratory Results Result Diagrams: 10/05/17 22:00 10/05/17 22:00 - ECG O2 Sat by Pulse Oximetry: 92 (RA) Pulse Ox Interpretation: Abnormal Medical Decision Making Medical Decision Making: Initial Impression: Asthma exacerbation Initial Plan: --EKG --B-Type Natriuretic Peptide --CMP --Magnesium --Phosphorus --Troponin I Q8H --Urine dipstick --CBC w/ differential --PTT --PT --Chest portable [RAD] --Duoneb 3 ml INH --SOLU-medrol 125 mg IVP --Blood culture --Peak flow pre/post Tx --Influenza A B --Reevaluation 1145p Persistent wheeze. Labs with no emergently significant abnormalities. CXR with no acute disease. JESSICA DRISCOLL resident for hospitalization for asthma exacerbation Scribe Attestation: Documented by Popeye Miller, acting as a scribe for Nancy Dixon MD Provider Scribe Attestation: All medical record entries made by the Scribe were at my direction and personally dictated by me. I have reviewed the chart and agree that the record accurately reflects my personal performance of the history, physical exam, medical decision making, and the department course for this patient. I have also personally directed, reviewed, and agree with the discharge instructions and disposition. Disposition - Clinical Impression Clinical Impression: Asthma with severe exacerbation Counseled Patient/Family Regarding: Studies Performed, Diagnosis - Disposition Referrals: Kenneth Hughes MD [Family Provider] - Disposition Time: 23:45 Condition: FAIR Forms: [employer] (Ukrainian) - Pt Status Changed To: Hospital Disposition Of: Observation - POA Present On Arrival: None
[2017-10-05 22:40] LABS: BASO # 0.1 K/uL (0.0-0.2); BASO % 0.7 % (0.0-2.0); EOS # 0.3 K/uL (0.0-0.7); EOS % 4.4 % (0.0-4.0); HEMOGLOBIN 15.1 g/dL (12.0-16.0); LYMPH # 2.8 K/uL (1.0-4.3); LYMPH % 37.6 % (20.0-40.0); MEAN CELL VOLUME 89.1 fl (81.0-99.0); MEAN CORPUSCULAR HEMOGLOBIN 30.5 pg (27.0-31.0); MEAN CORPUSCULAR HGB CONC 34.2 g/dL (33.0-37.0); MEAN PLATELET VOLUME 8.6 fl (7.2-11.7); MONO # 0.5 K/uL (0.0-0.8); MONO % 6.4 % (0.0-10.0); NEUT # 3.8 K/uL (1.8-7.0); NEUT % 50.9 % (50.0-75.0); NRBC % 0.1 % (0.0-0.0); RBC 4.96 Mil/uL (3.80-5.20); RED CELL DISTRIBUTION WIDTH 13.6 % (11.5-14.5); WHITE BLOOD COUNT 7.5 K/uL (4.8-10.8)
[2017-10-05 22:47] LABS: ALB/GLOB RATIO 1.2 (1.0-2.1); ALBUMIN 3.9 g/dL (3.5-5.0); ALT/SGPT 46 U/L (9-52); AST/SGOT 50 U/L (14-36); BLOOD UREA NITROGEN 21 mg/dl (7-17); CALCIUM 9.5 mg/dL (8.4-10.2); GFR AFRICAN-AMERICAN > 60; GFR NON-AFRICAN AMERICAN > 60
[2017-10-05 22:58] LABS: B-TYPE NATRIURETIC PEPTIDE 149 pg/ml (0-900)
[2017-10-05 23:04] LABS: INR 1.1 (0.9-1.2); PARTIAL THROMBOPLASTIN TIME 45.8 Seconds (25.6-37.1); PROTHROMBIN TIME 12.3 Seconds (9.8-13.1)
[2017-10-06] MEDS ORDERED: Dextrose 50% SYRINGE Inj (50 ml) IV PRN (00:40)
[2017-10-06] MEDS ORDERED: Glucagon Recombinant 1 mg Inj IM PRN (00:40)
--- NOTE | 2017-10-06 00:44 | CP.PCM.HP ---
History of Present Illness - History of Present Illness History of Present Illness: 62 y/o F with PMHx of HTN, DM type 2, Stomach Ulcer, Gastritis, Asthma, presents to ED complaining of SOB and wheezing. Patient states that 5 days ago she started feeling short of breath and fatigue with minimal activities. 4 days ago her SOB started getting worse, and she started using her rescue albuterol every 2 hours with partially relieve of her symptoms. Her SOB was associated with wheezing, chest tightness, wet cough with white-green sputum production, nausea without vomiting, low grade fevers 100.1 (last fever was yesterday) and poor appetite. Feeling a bit better after duoneb x 3 in ER, but still SOB, and wheezing. PMD: Dr. Cat Hughes at [facility] Full Code PMHX:HTN, DM type 2, Stomach Ulcer, Gastritis, Asthma Allergies: Iodine: burning sensation, an unknown antibiotic: rash FHx: Mother: passed from breast cancer, Father: passed from hepatitis SHx: Hysterectomy, Cardiac cath (12 years ago) without stent placement, Lipoma removal Socialhx: never smoker, denies etoh/illicit drugs ER course: VS:afebrile, BP: 141/79, HR: 89, 96 % RA PE:diffuse and bilateral wheezing to auscultation, no rhonchi or rales Lbs:CBC, CMP, coag panel unremarkable, influenza A B neg, troponin I x 1 neg CXR:read by me , no gross evidence of acute infiltrate, pending official report TX: Duoneb x 3, methylprednisolone 125 mg IV once Present on Admission - Present on Admission Any Indicators Present on Admission: No History of DVT/PE: No History of Uncontrolled Diabetes: No Urinary Catheter: No Decubitus Ulcer Present: No Review of Systems - Review of Systems All systems: reviewed and no additional remarkable complaints except (as per HPI ) Past Patient History - Infectious Disease Hx of Infectious Diseases: None - Past Medical History & Family History Past Medical History?: Yes - Past Social History Alcohol: None Drugs: Denies - CARDIAC Hx Hypercholesterolemia: Yes Hx Hypertension: Yes - PULMONARY Hx Asthma: Yes - NEUROLOGICAL Hx Neurological Disorder: No - HEENT Hx HEENT Problems: No - RENAL Hx Chronic Kidney Disease: No - ENDOCRINE/METABOLIC Hx Endocrine Disorders: Yes Hx Diabetes Mellitus Type 2: Yes - HEMATOLOGICAL/ONCOLOGICAL Hx Human Immunodeficiency Virus (HIV): No - INTEGUMENTARY Hx Dermatological Problems: No - MUSCULOSKELETAL/RHEUMATOLOGICAL Hx Musculoskeletal Disorders: No Hx Falls: No - GASTROINTESTINAL Hx Diverticulitis: Yes Hx Gastritis: Yes - GENITOURINARY/GYNECOLOGICAL Hx Genitourinary Disorders: No - PSYCHIATRIC Hx Anxiety: Yes Hx Bipolar Disorder: Yes Hx Depression: Yes - SURGICAL HISTORY Hx Surgeries: Yes Hx Cardiac Catheterization: Yes Hx Hysterectomy: Yes Other/Comment: left lipoma. oophorectomy - ANESTHESIA Hx Anesthesia: Yes Hx Anesthesia Reactions: No Hx Malignant Hyperthermia: No Meds Allergies/Adverse Reactions: Allergies Allergy/AdvReac Type Severity Reaction Status Date / Time iodine Allergy RASH Verified 05/16/17 20:31 Physical Exam - Constitutional Appears: Non-toxic, No Acute Distress - Eye Exam Eye Exam: Normal appearance - ENT Exam ENT Exam: Mucous Membranes Moist - Respiratory Exam Respiratory Exam: Wheezes, NORMAL BREATHING PATTERN. absent: Chest Wall Tenderness, Rales, Respiratory Distress, Stridor - Cardiovascular Exam Cardiovascular Exam: REGULAR RHYTHM, +S1, +S2. absent: Bradycardia, Tachycardia - GI/Abdominal Exam GI & Abdominal Exam: Normal Bowel Sounds, Soft. absent: Distended, Guarding, Rebound, Rigid, Tenderness - Extremities Exam Extremities exam: Positive for: normal inspection. Negative for: calf tenderness, pedal edema - Back Exam Back exam: NORMAL INSPECTION. absent: CVA tenderness (L), CVA tenderness (R) - Neurological Exam Neurological exam: Alert, Oriented x3 - Psychiatric Exam Psychiatric exam: Normal Affect, Normal Mood - Skin Skin Exam: Dry, Intact, Normal Color Results - Vital Signs Recent Vital Signs: Last Vital Signs Temp 98.0 F 10/06/17 00:40 Pulse 89 10/06/17 00:40 Resp 18 10/06/17 00:40 BP 141/79 10/06/17 00:40 Pulse Ox 96 10/06/17 00:40 - Labs Result Diagrams: 10/05/17 22:00 10/05/17 22:00 Labs: Laboratory Results - last 24 hr 10/05/17 10/05/17 10/05/17 22:00 22:00 22:00 WBC 7.5 RBC 4.96 Hgb 15.1 Hct 44.2 MCV 89.1 MCH 30.5 MCHC 34.2 RDW 13.6 Plt Count 332 MPV 8.6 Neut % (Auto) 50.9 Lymph % (Auto) 37.6 [place] % (Auto) 6.4 Eos % (Auto) 4.4 H Baso % (Auto) 0.7 Neut # (Auto) 3.8 Lymph # (Auto) 2.8 [place] # (Auto) 0.5 Eos # (Auto) 0.3 Baso # (Auto) 0.1 PT 12.3 INR 1.1 APTT 45.8 H Sodium 147 Potassium 3.9 Chloride 105 Carbon Dioxide 28 Anion Gap 18 BUN 21 H Creatinine 0.8 Est GFR ( Amer) > 60 Est GFR (Non-Af Amer) > 60 Random Glucose 164 H Calcium 9.5 Phosphorus 3.7 Magnesium 1.9 Total Bilirubin 0.6 AST 50 H ALT 46 Alkaline Phosphatase 100 Troponin I < 0.0120 NT-Pro-B Natriuret Pep 149 Total Protein 7.2 Albumin 3.9 Globulin 3.3 Albumin/Globulin Ratio 1.2 Influenza Typ A,B (EIA) 10/05/17 22:30 WBC RBC Hgb Hct MCV MCH MCHC RDW Plt Count MPV Neut % (Auto) Lymph % (Auto) [place] % (Auto) Eos % (Auto) Baso % (Auto) Neut # (Auto) Lymph # (Auto) [place] # (Auto) Eos # (Auto) Baso # (Auto) PT INR APTT Sodium Potassium Chloride Carbon Dioxide Anion Gap BUN Creatinine Est GFR ( Amer) Est GFR (Non-Af Amer) Random Glucose Calcium Phosphorus Magnesium Total Bilirubin AST ALT Alkaline Phosphatase Troponin I NT-Pro-B Natriuret Pep Total Protein Albumin Globulin Albumin/Globulin Ratio Influenza Typ A,B (EIA) Negative for flu a/b Assessment & Plan - Assessment and Plan (Free Text) Assessment: 62 y/o F with PMHx of HTN, DM type 2, Stomach Ulcer, Gastritis, Asthma admitted with asthma exacerbation. Plan: Asthma Exacerbation -MedSurg unit -most likely 2/2 viral upper respiratory infection -c/w Duoneb neb every 4 hours fabricio -c/w Methylprednisolone 60 mg IV daily, and titrate as needed -oxygen supplementation via NC at 2 LPM to maintain oxyg sat >94 % -encourage fluids intake -f/u respiratory status -resume home advair diskus inh Q12 -mucinex DM -chest physiotherapy TID -f/u troponin x 2 -f/u blood cx -CBC showed eosinophilia on admission -f/u repeat CBC CXR:read by me , no gross evidence of acute infiltrate, pending official report Hypertension -c/w home meds Diabetes Mellitus type 2 -c/w home metformin -accucheck before breakfast -hypoglycemic protocol -diabetic diet DVT prophylaxis -SDCs - Date & Time Date: 10/06/17 Time: 01:35
[2017-10-06] MEDS: guaiFENesin-DM 600-30 mg ER Tab PO SCH ×3 (02:03→16:31)
[2017-10-06] MEDS: Albuterol-Ipratrop 3 mg / 0.5 (3 ml) UD INH SCH ×6 (04:00→23:10)
[2017-10-06 07:35] LABS: BASO % 0.2 % (0.0-2.0); EOS % 0.1 % (0.0-4.0); HEMOGLOBIN 14.6 g/dL (12.0-16.0); LYMPH # 0.7 K/uL (1.0-4.3); LYMPH % 12.1 % (20.0-40.0); MEAN CELL VOLUME 89.5 fl (81.0-99.0); MEAN CORPUSCULAR HGB CONC 33.5 g/dL (33.0-37.0); MEAN PLATELET VOLUME 8.5 fl (7.2-11.7); MONO # 0.1 K/uL (0.0-0.8); MONO % 1.1 % (0.0-10.0); NEUT # 5.2 K/uL (1.8-7.0); NEUT % 86.5 % (50.0-75.0); RBC 4.88 Mil/uL (3.80-5.20); RED CELL DISTRIBUTION WIDTH 13.5 % (11.5-14.5)
[2017-10-06 07:46] LABS: BLOOD UREA NITROGEN 22 mg/dl (7-17); CALCIUM 9.4 mg/dL (8.4-10.2); GFR AFRICAN-AMERICAN > 60; GFR NON-AFRICAN AMERICAN > 60
--- NOTE | 2017-10-06 08:16 | RAD ---
HISTORY: asthma sob COMPARISON: Chest radiographs 05/16/2017. FINDINGS: LUNGS: No interval infiltrate is identified bilaterally. A small calcified granuloma is again seen the right upper lung zone laterally. PLEURA: No significant pleural effusion identified, no pneumothorax apparent. CARDIOVASCULAR: Normal. OSSEOUS STRUCTURES: No significant abnormalities. VISUALIZED UPPER ABDOMEN: Normal. OTHER FINDINGS: None. IMPRESSION: No interval acute cardiopulmonary disease appreciated.
[2017-10-06] MEDS: Fluticasone-Salmeterol 250-50mcg Diskus IH SCH ×2 (08:45→22:26)
[2017-10-06] MEDS: Calcium-Vit D 500 mg-200 Units Tab UD PO SCH ×2 (08:47→16:31)
[2017-10-06] MEDS: Pantoprazole 40 mg EC Tab PO SCH (08:47)
[2017-10-06] MEDS ORDERED: Patient's Own Med (Budesonide/Formoterol Fumarate [Symbicort 80-4.5 Mcg Inhaler] 2 PUFF) IH SCH (09:00)
--- NOTE | 2017-10-06 11:20 | CARD ---
APPROVED REPORT EKG Measurement Heart [id number] <Conclusion> Sinus rhythm with short WY Otherwise normal ECG
[2017-10-06] MEDS: Insulin Regular 100 units/ml SC SCH ×3 (13:20→22:27)
[2017-10-07] MEDS: Albuterol-Ipratrop 3 mg / 0.5 (3 ml) UD INH SCH ×7 (05:07→19:18)
[2017-10-07 08:11] LABS: HEMOGLOBIN 14.9 g/dL (12.0-16.0); MEAN CELL VOLUME 88.8 fl (81.0-99.0); MEAN CORPUSCULAR HEMOGLOBIN 30.3 pg (27.0-31.0); MEAN CORPUSCULAR HGB CONC 34.1 g/dL (33.0-37.0); RBC 4.91 Mil/uL (3.80-5.20); RED CELL DISTRIBUTION WIDTH 13.4 % (11.5-14.5); WHITE BLOOD COUNT 8.9 K/uL (4.8-10.8)
[2017-10-07 08:31] LABS: ALB/GLOB RATIO 1.2 (1.0-2.1); ALBUMIN 3.9 g/dL (3.5-5.0); ALT/SGPT 43 U/L (9-52); AST/SGOT 26 U/L (14-36); BLOOD UREA NITROGEN 23 mg/dl (7-17); CALCIUM 9.3 mg/dL (8.4-10.2); GFR AFRICAN-AMERICAN > 60; GFR NON-AFRICAN AMERICAN > 60
[2017-10-07] MEDS ORDERED: Potassium Chloride 20 mEq ER Tab PO ONE (08:47)
[2017-10-07] MEDS: Enoxaparin 40 mg Syringe SC SCH (08:48)
[2017-10-07] MEDS: Fluticasone-Salmeterol 250-50mcg Diskus IH SCH ×2 (08:48→21:20)
[2017-10-07] MEDS: Calcium-Vit D 500 mg-200 Units Tab UD PO SCH ×2 (08:49→16:45)
[2017-10-07] MEDS: Pantoprazole 40 mg EC Tab PO SCH (08:49)
[2017-10-07] MEDS: Insulin Regular 100 units/ml SC SCH ×4 (09:48→21:40)
[2017-10-07] MEDS: guaiFENesin-DM 600-30 mg ER Tab PO SCH ×2 (09:56→16:36)
--- NOTE | 2017-10-07 12:38 | CP.PCM.PN ---
Subjective - Date & Time of Evaluation Date of Evaluation: 10/07/17 Time of Evaluation: 12:36 - Subjective Subjective: no overnight events. Feeling better. Denies chest pain/SOB. Making UOP/BM, eating/drinking, walking. Objective - Vital Signs/Intake and Output Vital Signs (last 24 hours): Temp Pulse Resp BP Pulse Ox 97.6 F 74 20 110/75 94 L 10/07/17 08:45 10/07/17 08:49 10/07/17 08:45 10/07/17 08:49 10/07/17 08:45 - Medications Medications: Current Medications Albuterol/Ipratropium (Duoneb 3 Mg/0.5 Mg (3 Ml) Ud) 3 ml INH RQ3 [facility] Aspirin (Aspirin Chewable) 81 mg PO HS [facility] Last Admin: 10/06/17 22:27 Dose: 81 mg Atorvastatin Calcium (Lipitor) 40 mg PO DAILY [facility] Last Admin: 10/07/17 08:50 Dose: 40 mg Calcium/Vitamin D (Oyster Shell Calcium/Vitamin D 500 Mg-200 Iu) 1 tab PO BID [facility] Last Admin: 10/07/17 08:49 Dose: 1 tab Dextrose (Dextrose 50% Inj) 0 ml IV STAT PRN; Protocol PRN Reason: Hypoglycemia Protocol Dextrose (Glutose 15) 0 gm PO ONCE PRN; Protocol PRN Reason: Hypoglycemia Protocol Enoxaparin Sodium (Lovenox) 40 mg SC DAILY [facility] PRN Reason: Protocol Last Admin: 10/07/17 08:48 Dose: 40 mg Escitalopram Oxalate (Lexapro) 20 mg PO DAILY [facility] Last Admin: 10/07/17 08:48 Dose: 20 mg Glucagon (Glucagen Diagnostic Kit) 0 mg IM STAT PRN; Protocol PRN Reason: Hypoglycemia Protocol Guaifenesin/Dextromethorphan (Mucinex-Dm 600-30 Mg) 1 tab PO BID [facility] Last Admin: 10/07/17 09:56 Dose: Not Given Hydrochlorothiazide (Hydrodiuril) 25 mg PO DAILY [facility] Last Admin: 10/07/17 09:54 Dose: 25 mg Insulin Human Regular (Humulin R) 0 units SC ACHS [facility] PRN Reason: Protocol Last Admin: 10/07/17 12:34 Dose: 3 units Lisinopril (Zestril) 40 mg PO DAILY [facility] Last Admin: 10/07/17 08:49 Dose: 40 mg Metformin HCl (Glucophage) 1,000 mg PO BID [facility] Last Admin: 10/07/17 09:46 Dose: Not Given Methylprednisolone (Solu-Medrol) 60 mg IVP BID [facility] Montelukast Sodium (Singulair) 10 mg PO HS [facility] Last Admin: 10/06/17 22:27 Dose: 10 mg Ondansetron HCl (Zofran Tab) 4 mg PO Q6 PRN PRN Reason: Nausea/Vomiting Last Admin: 10/06/17 15:27 Dose: 4 mg Pantoprazole Sodium (Protonix Ec Tab) 40 mg PO DAILY [facility] Last Admin: 10/07/17 08:49 Dose: 40 mg Promethazine HCl/Codeine (Phenergan/Codeine Oral Syrup) 5 ml PO Q6 PRN PRN Reason: Cough Fluticasone/Salmeterol (Advair Diskus 250/50) 1 puff IH Q12 [facility] Last Admin: 10/07/17 08:48 Dose: 1 puff - Labs Labs: 10/07/17 06:00 10/07/17 06:00 PT 12.3 Seconds (9.8-13.1) 10/05/17 22:00 INR 1.1 (0.9-1.2) 10/05/17 22:00 APTT 45.8 Seconds (25.6-37.1) H 10/05/17 22:00 - Constitutional Appears: Non-toxic, No Acute Distress - Head Exam Head Exam: ATRAUMATIC, NORMAL INSPECTION - Eye Exam Eye Exam: Normal appearance - ENT Exam ENT Exam: Mucous Membranes Moist - Neck Exam Neck Exam: Full ROM, Normal Inspection - Respiratory Exam Respiratory Exam: Wheezes - Cardiovascular Exam Cardiovascular Exam: REGULAR RHYTHM - GI/Abdominal Exam GI & Abdominal Exam: Soft - Extremities Exam Extremities Exam: Normal Inspection - Back Exam Back Exam: NORMAL INSPECTION - Neurological Exam Neurological Exam: Alert, Oriented x3 - Skin Skin Exam: Dry, Warm Assessment and Plan - Assessment and Plan (Free Text) Assessment: Assessment: 62 y/o F with PMHx of HTN, DM type 2, Stomach Ulcer, Gastritis, Asthma admitted with asthma exacerbation. Plan: increase steroids, maintain other med frequency/doses Asthma Exacerbation -MedSurg unit -most likely 2/2 viral upper respiratory infection -Duoneb neb every 4 hours [facility] -Methylprednisolone 60 mg IV BID -advair diskus inh Q12 -mucinex DM -chest physiotherapy TID Hypertension -c/w home meds Diabetes Mellitus type 2 -c/w home metformin -accucheck before breakfast -hypoglycemic protocol -diabetic diet DVT prophylaxis -lovenox
[2017-10-08] MEDS: Albuterol-Ipratrop 3 mg / 0.5 (3 ml) UD INH SCH ×9 (00:23→23:53)
[2017-10-08] MEDS: Fluticasone-Salmeterol 250-50mcg Diskus IH SCH ×2 (08:08→20:36)
[2017-10-08] MEDS: Calcium-Vit D 500 mg-200 Units Tab UD PO SCH ×2 (08:09→16:16)
[2017-10-08] MEDS: Insulin Regular 100 units/ml SC SCH ×4 (08:09→22:03)
[2017-10-08] MEDS: Enoxaparin 40 mg Syringe SC SCH (08:10)
[2017-10-08] MEDS: Pantoprazole 40 mg EC Tab PO SCH (08:10)
[2017-10-08] MEDS: guaiFENesin-DM 600-30 mg ER Tab PO SCH ×2 (08:10→16:13)
[2017-10-08 09:39] LABS: BLOOD UREA NITROGEN 30 mg/dl (7-17); CALCIUM 10.3 mg/dL (8.4-10.2); GFR AFRICAN-AMERICAN > 60; GFR NON-AFRICAN AMERICAN > 60
--- NOTE | 2017-10-08 10:18 | CP.PCM.PN ---
Addendum entered and electronically signed by De Peace MD 10/08/17 11:33: Peak flow: 210 Original Note: Subjective - Date & Time of Evaluation Date of Evaluation: 10/08/17 Time of Evaluation: 09:20 - Subjective Subjective: Pt seen and examined at bedside. Reports improvement in breathing. Nausea alleviated with zofran. Tolerating PO diet. Ambulating Objective - Vital Signs/Intake and Output Vital Signs (last 24 hours): Temp Pulse Resp BP Pulse Ox 97.5 F L 55 L 20 116/74 95 10/08/17 08:11 10/08/17 08:11 10/08/17 08:11 10/08/17 08:11 10/08/17 08:11 - Medications Medications: Current Medications Albuterol/Ipratropium (Duoneb 3 Mg/0.5 Mg (3 Ml) Ud) 3 ml INH RQ3 [facility] Last Admin: 10/08/17 07:46 Dose: 3 ml Aspirin (Aspirin Chewable) 81 mg PO HS [facility] Last Admin: 10/07/17 21:20 Dose: 81 mg Atorvastatin Calcium (Lipitor) 40 mg PO DAILY [facility] Last Admin: 10/08/17 08:10 Dose: 40 mg Calcium/Vitamin D (Oyster Shell Calcium/Vitamin D 500 Mg-200 Iu) 1 tab PO BID [facility] Last Admin: 10/08/17 08:09 Dose: 1 tab Dextrose (Dextrose 50% Inj) 0 ml IV STAT PRN; Protocol PRN Reason: Hypoglycemia Protocol Dextrose (Glutose 15) 0 gm PO ONCE PRN; Protocol PRN Reason: Hypoglycemia Protocol Enoxaparin Sodium (Lovenox) 40 mg SC DAILY [facility] PRN Reason: Protocol Last Admin: 10/08/17 08:10 Dose: 40 mg Escitalopram Oxalate (Lexapro) 20 mg PO DAILY [facility] Last Admin: 10/08/17 08:10 Dose: 20 mg Glucagon (Glucagen Diagnostic Kit) 0 mg IM STAT PRN; Protocol PRN Reason: Hypoglycemia Protocol Guaifenesin/Dextromethorphan (Mucinex-Dm 600-30 Mg) 1 tab PO BID [facility] Last Admin: 10/08/17 08:10 Dose: 1 tab Hydrochlorothiazide (Hydrodiuril) 25 mg PO DAILY [facility] Last Admin: 10/08/17 08:10 Dose: 25 mg Insulin Human Regular (Humulin R) 0 units SC [facility] PRN Reason: Protocol Lisinopril (Zestril) 40 mg PO DAILY [facility] Last Admin: 10/08/17 08:11 Dose: 40 mg Metformin HCl (Glucophage) 1,000 mg PO BID [facility] Last Admin: 10/08/17 08:09 Dose: 1,000 mg Methylprednisolone (Solu-Medrol) 60 mg IVP BID [facility] Last Admin: 10/08/17 08:08 Dose: 60 mg Montelukast Sodium (Singulair) 10 mg PO HS [facility] Last Admin: 10/07/17 21:20 Dose: 10 mg Ondansetron HCl (Zofran Tab) 4 mg PO Q6 PRN PRN Reason: Nausea/Vomiting Last Admin: 10/06/17 15:27 Dose: 4 mg Pantoprazole Sodium (Protonix Ec Tab) 40 mg PO DAILY [facility] Last Admin: 10/08/17 08:10 Dose: 40 mg Promethazine HCl/Codeine (Phenergan/Codeine Oral Syrup) 5 ml PO Q6 PRN PRN Reason: Cough Fluticasone/Salmeterol (Advair Diskus 250/50) 1 puff IH Q12 [facility] Last Admin: 10/08/17 08:08 Dose: 1 puff - Labs Labs: 10/07/17 06:00 10/08/17 07:15 PT 12.3 Seconds (9.8-13.1) 10/05/17 22:00 INR 1.1 (0.9-1.2) 10/05/17 22:00 APTT 45.8 Seconds (25.6-37.1) H 10/05/17 22:00 - Constitutional Appears: Well, No Acute Distress - Eye Exam Eye Exam: EOMI - ENT Exam ENT Exam: Mucous Membranes Moist - Neck Exam Neck Exam: Full ROM - Respiratory Exam Respiratory Exam: Wheezes (expiratory ). absent: Respiratory Distress - Cardiovascular Exam Cardiovascular Exam: REGULAR RHYTHM, +S1, +S2 - GI/Abdominal Exam GI & Abdominal Exam: Soft, Normal Bowel Sounds. absent: Tenderness - Extremities Exam Extremities Exam: Full ROM - Neurological Exam Neurological Exam: Alert, Awake, CN II-XII Intact, Oriented x3 - Psychiatric Exam Psychiatric exam: Normal Affect, Normal Mood Assessment and Plan - Assessment and Plan (Free Text) Plan: 62 y/o F with PMHx of HTN, DM type 2, Stomach Ulcer, Gastritis, Asthma admitted with asthma exacerbation. Plan: Pt wheezing slightly improved; However, continues to experience night time symptoms and throughout the day. Continue with increased dose of steroid. Asthma Exacerbation -Severe persistent Asthma -MedSurg unit -most likely 2/2 viral upper respiratory infection -Duoneb neb every 3 hours [facility] -Methylprednisolone 60 mg IV BID -advair diskus inh Q12 -mucinex DM -chest physiotherapy TID -bcx: negative for 24 hrs -peak flow monitoring -monitor v/s Hypertension -c/w home meds -monitor bp Diabetes Mellitus type 2 -c/w home metformin -accucheck before breakfast -hypoglycemic protocol with SS -diabetic diet DVT prophylaxis -lovenox
[2017-10-09] MEDS: Albuterol-Ipratrop 3 mg / 0.5 (3 ml) UD INH SCH ×8 (02:28→23:15)
[2017-10-09 06:46] LABS: HEMOGLOBIN 15.9 g/dL (12.0-16.0); MEAN CELL VOLUME 89.7 fl (81.0-99.0); MEAN CORPUSCULAR HEMOGLOBIN 30.2 pg (27.0-31.0); MEAN CORPUSCULAR HGB CONC 33.7 g/dL (33.0-37.0); RBC 5.27 Mil/uL (3.80-5.20); RED CELL DISTRIBUTION WIDTH 13.3 % (11.5-14.5); WHITE BLOOD COUNT 12.7 K/uL (4.8-10.8)
[2017-10-09 06:59] LABS: ALB/GLOB RATIO 1.2 (1.0-2.1); ALBUMIN 4.1 g/dL (3.5-5.0); ALT/SGPT 41 U/L (9-52); AST/SGOT 18 U/L (14-36); BLOOD UREA NITROGEN 27 mg/dl (7-17); CALCIUM 9.9 mg/dL (8.4-10.2); GFR AFRICAN-AMERICAN > 60; GFR NON-AFRICAN AMERICAN > 60
--- NOTE | 2017-10-09 08:29 | CP.PCM.PN ---
Subjective - Date & Time of Evaluation Date of Evaluation: 10/09/17 Time of Evaluation: 08:10 - Subjective Subjective: Pt seen and examined at bedside. Denies significant overnight events. Reports improved symptoms. Nausea resolved. Denies vomiting. Tolerating PO diet. Objective - Vital Signs/Intake and Output Vital Signs (last 24 hours): Temp Pulse Resp BP Pulse Ox 97.6 F 64 19 105/61 95 10/09/17 00:00 10/09/17 00:00 10/09/17 00:00 10/09/17 00:00 10/09/17 00:00 - Medications Medications: Current Medications Acetaminophen (Tylenol 325mg Tab) 650 mg PO Q6 PRN PRN Reason: Pain, Mild (1-3) Albuterol/Ipratropium (Duoneb 3 Mg/0.5 Mg (3 Ml) Ud) 3 ml INH RQ3 [facility] Last Admin: 10/09/17 07:18 Dose: 3 ml Aspirin (Aspirin Chewable) 81 mg PO HS [facility] Last Admin: 10/08/17 21:08 Dose: 81 mg Atorvastatin Calcium (Lipitor) 40 mg PO DAILY [facility] Last Admin: 10/08/17 08:10 Dose: 40 mg Calcium/Vitamin D (Oyster Shell Calcium/Vitamin D 500 Mg-200 Iu) 1 tab PO BID [facility] Last Admin: 10/08/17 16:16 Dose: 1 tab Dextrose (Dextrose 50% Inj) 0 ml IV STAT PRN; Protocol PRN Reason: Hypoglycemia Protocol Dextrose (Glutose 15) 0 gm PO ONCE PRN; Protocol PRN Reason: Hypoglycemia Protocol Docusate Sodium (Colace) 200 mg PO DAILY [facility] Enoxaparin Sodium (Lovenox) 40 mg SC DAILY [facility] PRN Reason: Protocol Last Admin: 10/08/17 08:10 Dose: 40 mg Escitalopram Oxalate (Lexapro) 20 mg PO DAILY [facility] Last Admin: 10/08/17 08:10 Dose: 20 mg Glucagon (Glucagen Diagnostic Kit) 0 mg IM STAT PRN; Protocol PRN Reason: Hypoglycemia Protocol Guaifenesin/Dextromethorphan (Mucinex-Dm 600-30 Mg) 1 tab PO BID [facility] Last Admin: 10/08/17 16:13 Dose: 1 tab Hydrochlorothiazide (Hydrodiuril) 25 mg PO DAILY [facility] Last Admin: 10/08/17 08:10 Dose: 25 mg Insulin Human Regular (Humulin R) 0 units SC ACHS [facility] PRN Reason: Protocol Last Admin: 10/08/17 22:03 Dose: 2 units Lisinopril (Zestril) 40 mg PO DAILY [facility] Last Admin: 10/08/17 08:11 Dose: 40 mg Metformin HCl (Glucophage) 1,000 mg PO BID [facility] Last Admin: 10/08/17 16:13 Dose: 1,000 mg Methylprednisolone (Solu-Medrol) 60 mg IVP BID [facility] Last Admin: 10/08/17 16:14 Dose: 60 mg Montelukast Sodium (Singulair) 10 mg PO HS [facility] Last Admin: 10/08/17 21:08 Dose: 10 mg Ondansetron HCl (Zofran Tab) 4 mg PO Q6 PRN PRN Reason: Nausea/Vomiting Last Admin: 10/06/17 15:27 Dose: 4 mg Pantoprazole Sodium (Protonix Ec Tab) 40 mg PO DAILY [facility] Last Admin: 10/08/17 08:10 Dose: 40 mg Promethazine HCl/Codeine (Phenergan/Codeine Oral Syrup) 5 ml PO Q6 PRN PRN Reason: Cough Fluticasone/Salmeterol (Advair Diskus 250/50) 1 puff IH Q12 [facility] Last Admin: 10/08/17 20:36 Dose: 1 puff - Labs Labs: 10/09/17 05:45 10/09/17 05:45 PT 12.3 Seconds (9.8-13.1) 10/05/17 22:00 INR 1.1 (0.9-1.2) 10/05/17 22:00 APTT 45.8 Seconds (25.6-37.1) H 10/05/17 22:00 - Constitutional Appears: Well - Eye Exam Eye Exam: EOMI - Neck Exam Neck Exam: Full ROM - Respiratory Exam Respiratory Exam: Wheezes - Cardiovascular Exam Cardiovascular Exam: REGULAR RHYTHM, +S1, +S2 - GI/Abdominal Exam GI & Abdominal Exam: Soft, Normal Bowel Sounds. absent: Tenderness - Neurological Exam Neurological Exam: Alert, Awake, CN II-XII Intact, Oriented x3 - Psychiatric Exam Psychiatric exam: Normal Affect, Normal Mood Assessment and Plan - Assessment and Plan (Free Text) Plan: 62 y/o F with PMHx of HTN, DM type 2, Stomach Ulcer, Gastritis, Asthma admitted with asthma exacerbation. Plan: wheezing improved; However, continues to experience night time symptoms and throughout the day. Asthma Exacerbation -Severe persistent Asthma -MedSurg unit -most likely 2/2 viral upper respiratory infection -Duoneb neb every 3 hours [facility] -Methylprednisolone 60 mg IV qD; tapered from BID -advair diskus inh Q12 -mucinex DM -chest physiotherapy TID -bcx: negative for 3D -peak flow monitoring -pulmonology consulted: Dr. Minor; recommendations appreciated -monitor v/s and oral thrush Hypertension -decreased HCTZ to 12.5 q D -Continue Lisinopril 40 mg po daily -monitor bp Diabetes Mellitus type 2 -c/w home metformin -added Levemir 10u qHS -accucheck before breakfast -hypoglycemic protocol with SS -diabetic diet DVT prophylaxis -lovenox
[2017-10-09] MEDS: Fluticasone-Salmeterol 250-50mcg Diskus IH SCH (08:38)
[2017-10-09] MEDS: Insulin Regular 100 units/ml SC SCH ×4 (08:39→22:59)
[2017-10-09] MEDS: Pantoprazole 40 mg EC Tab PO SCH (08:40)
[2017-10-09] MEDS: Enoxaparin 40 mg Syringe SC SCH (08:40)
[2017-10-09] MEDS: guaiFENesin-DM 600-30 mg ER Tab PO SCH ×2 (08:40→16:53)
[2017-10-09] MEDS: Calcium-Vit D 500 mg-200 Units Tab UD PO SCH ×2 (08:40→17:20)
--- NOTE | 2017-10-09 14:28 | CP.PCM.CON ---
History of Present Illness - History of Present Illness History of Present Illness: Pulmonary consult for a 62 y/o F, Multiple admissions for Asthma exacerbation , admitted to [facility] on 10/05/17 due to acute SOB from 4 days [employer], Pt was using Nebulizer Tx with no relief, also Pt states that she ran out of her Dulera. Pt was c/o of moderate SOB, gradually increased on DOA, associated to chest congestion, wheeziness, cough with productive greenish sputum, at times unable to expel the phlegms. Worsening symptoms: SAMANO, increased chest tightness when coughing, low grade fever while at home (as per Pt), hyperglycemia. Aggravated factor: Exercise. Pt denied: Chills, n/v/d, abdominal pain, CP, palpitations, dizziness, syncope , legs swelling, back pain, urinary symptoms, sick contact, recent travel out of [facility]. CXR shows: No cardiopulmonary disease, no infiltrates, no pleural effusion. Review of Systems - Constitutional Constitutional: Fever (low grade while at home.) - EENT Eyes: Requires Corrective Lenses Ears: Other (negative) - Cardiovascular Cardiovascular: Other (negative) - Respiratory Respiratory: Cough, Dyspnea, Dyspnea on Exertion, Wheezing, Chest Congestion, Change in Mucous Color, Pain with Coughing - Gastrointestinal Gastrointestinal: Other (negative) - Genitourinary Genitourinary: Other (negative) - Musculoskeletal Musculoskeletal: Other (negative) - Integumentary Integumentary: Other (negative) - Neurological Neurological: Other (negative) - Psychiatric Psychiatric: Depression - Endocrine Endocrine: Other (negative) - Hematologic/Lymphatic Hematologic: Other (negative) Past Patient History - Infectious Disease Hx of Infectious Diseases: None - Past Medical History & Family History Past Medical History?: Yes Pertinent Family History: Father passed from Hepatitis. Mother passed from Breast Ca. - Past Social History Alcohol: None Drugs: Denies Home Situation {Lives}: With Family - CARDIAC Hx Cardiac Disorders: Yes Hx Hypercholesterolemia: Yes Hx Hypertension: Yes - PULMONARY Hx Respiratory Disorders: Yes Hx Asthma: Yes Hx Bronchitis: Yes - NEUROLOGICAL Hx Neurological Disorder: No - HEENT Hx HEENT Problems: No - RENAL Hx Chronic Kidney Disease: No - ENDOCRINE/METABOLIC Hx Endocrine Disorders: Yes Hx Diabetes Mellitus Type 2: Yes - HEMATOLOGICAL/ONCOLOGICAL Hx Blood Disorders: No Hx Human Immunodeficiency Virus (HIV): No - INTEGUMENTARY Hx Dermatological Problems: No - MUSCULOSKELETAL/RHEUMATOLOGICAL Hx Musculoskeletal Disorders: No Hx Falls: No - GASTROINTESTINAL Hx Gastrointestinal Disorders: Yes Hx Diverticulitis: Yes Hx Gastritis: Yes - GENITOURINARY/GYNECOLOGICAL Hx Genitourinary Disorders: No - PSYCHIATRIC Hx Psychophysiologic Disorder: Yes Hx Anxiety: Yes Hx Bipolar Disorder: Yes Hx Depression: Yes - SURGICAL HISTORY Hx Surgeries: Yes Hx Cardiac Catheterization: Yes Hx Hysterectomy: Yes Other/Comment: left lipoma. oophorectomy - ANESTHESIA Hx Anesthesia: Yes Hx Anesthesia Reactions: No Hx Malignant Hyperthermia: No Meds Allergies/Adverse Reactions: Allergies Allergy/AdvReac Type Severity Reaction Status Date / Time iodine Allergy RASH Verified 05/16/17 20:31 - Medications Medications: Current Medications Acetaminophen (Tylenol 325mg Tab) 650 mg PO Q6 PRN PRN Reason: Pain, Mild (1-3) Albuterol/Ipratropium (Duoneb 3 Mg/0.5 Mg (3 Ml) Ud) 3 ml INH RQ3 [facility] Last Admin: 10/09/17 14:10 Dose: 3 ml Aspirin (Aspirin Chewable) 81 mg PO HS [facility] Last Admin: 10/08/17 21:08 Dose: 81 mg Atorvastatin Calcium (Lipitor) 40 mg PO DAILY [facility] Last Admin: 10/09/17 08:40 Dose: 40 mg Calcium/Vitamin D (Oyster Shell Calcium/Vitamin D 500 Mg-200 Iu) 1 tab PO BID [facility] Last Admin: 10/09/17 08:40 Dose: 1 tab Dextrose (Dextrose 50% Inj) 0 ml IV STAT PRN; Protocol PRN Reason: Hypoglycemia Protocol Dextrose (Glutose 15) 0 gm PO ONCE PRN; Protocol PRN Reason: Hypoglycemia Protocol Docusate Sodium (Colace) 200 mg PO DAILY [facility] Last Admin: 10/09/17 11:20 Dose: 200 mg Enoxaparin Sodium (Lovenox) 40 mg SC DAILY [facility] PRN Reason: Protocol Last Admin: 10/09/17 08:40 Dose: 40 mg Escitalopram Oxalate (Lexapro) 20 mg PO DAILY [facility] Last Admin: 10/09/17 08:39 Dose: 20 mg Glucagon (Glucagen Diagnostic Kit) 0 mg IM STAT PRN; Protocol PRN Reason: Hypoglycemia Protocol Guaifenesin/Dextromethorphan (Mucinex-Dm 600-30 Mg) 1 tab PO BID [facility] Last Admin: 10/09/17 08:40 Dose: 1 tab Hydrochlorothiazide (Microzide) 12.5 mg PO DAILY [facility] Insulin Detemir (Levemir) 10 units SC [facility] Insulin Human Regular (Humulin R) 0 units SC [facility] PRN Reason: Protocol Last Admin: 10/09/17 12:56 Dose: 6 units Lisinopril (Zestril) 40 mg PO DAILY [facility] Last Admin: 10/09/17 08:41 Dose: 40 mg Metformin HCl (Glucophage) 1,000 mg PO BID [facility] Last Admin: 10/09/17 08:39 Dose: 1,000 mg Methylprednisolone (Solu-Medrol) 60 mg IVP DAILY [facility] Last Admin: 10/09/17 11:18 Dose: Not Given Montelukast Sodium (Singulair) 10 mg PO HS [facility] Last Admin: 10/08/17 21:08 Dose: 10 mg Ondansetron HCl (Zofran Tab) 4 mg PO Q6 PRN PRN Reason: Nausea/Vomiting Last Admin: 10/06/17 15:27 Dose: 4 mg Pantoprazole Sodium (Protonix Ec Tab) 40 mg PO DAILY [facility] Last Admin: 10/09/17 08:40 Dose: 40 mg Promethazine HCl/Codeine (Phenergan/Codeine Oral Syrup) 5 ml PO Q6 PRN PRN Reason: Cough Fluticasone/Salmeterol (Advair Diskus 250/50) 1 puff IH Q12 [facility] Last Admin: 10/09/17 08:38 Dose: 1 puff Physical Exam - Constitutional Appears: No Acute Distress - Head Exam Head Exam: NORMAL INSPECTION - Eye Exam Eye Exam: PERRL - ENT Exam ENT Exam: Mucous Membranes Moist - Neck Exam Neck exam: Positive for: Normal Inspection - Respiratory Exam Respiratory Exam: Decreased Breath Sounds (b/l), Wheezes (few expiratory) - Cardiovascular Exam Cardiovascular Exam: REGULAR RHYTHM - GI/Abdominal Exam GI & Abdominal Exam: Normal Bowel Sounds, Soft - Extremities Exam Extremities exam: Positive for: normal inspection - Back Exam Back exam: NORMAL INSPECTION - Neurological Exam Neurological exam: Alert, Oriented x3 - Skin Skin Exam: Warm Results - Vital Signs Recent Vital Signs: Last Vital Signs Temp 97.6 F 10/09/17 09:00 Pulse 77 10/09/17 09:00 Resp 20 10/09/17 09:00 BP 124/70 10/09/17 09:00 Pulse Ox 93 L 10/09/17 09:00 reviewed J.P. - Labs Result Diagrams: 10/09/17 05:45 10/09/17 05:45 Labs: Laboratory Results - last 24 hr 10/08/17 10/08/17 10/09/17 15:41 21:56 02:32 WBC RBC Hgb Hct MCV MCH MCHC RDW Plt Count Sodium Potassium Chloride Carbon Dioxide Anion Gap BUN Creatinine Est GFR ( Amer) Est GFR (Non-Af Amer) POC Glucose (mg/dL) 315 H 311 H 328 H Random Glucose Calcium Total Bilirubin AST ALT Alkaline Phosphatase Total Protein Albumin Globulin Albumin/Globulin Ratio 10/09/17 10/09/17 10/09/17 05:33 05:45 05:45 WBC 12.7 H RBC 5.27 H Hgb 15.9 Hct 47.2 H MCV 89.7 MCH 30.2 MCHC 33.7 RDW 13.3 Plt Count 335 Sodium 138 Potassium 3.7 Chloride 93 L Carbon Dioxide 29 Anion Gap 20 BUN 27 H Creatinine 0.7 Est GFR ( Amer) > 60 Est GFR (Non-Af Amer) > 60 POC Glucose (mg/dL) 277 H Random Glucose 322 H Calcium 9.9 Total Bilirubin 0.8 AST 18 ALT 41 Alkaline Phosphatase 102 Total Protein 7.6 Albumin 4.1 Globulin 3.5 Albumin/Globulin Ratio 1.2 10/09/17 11:14 WBC RBC Hgb Hct MCV MCH MCHC RDW Plt Count Sodium Potassium Chloride Carbon Dioxide Anion Gap BUN Creatinine Est GFR ( Amer) Est GFR (Non-Af Amer) POC Glucose (mg/dL) 274 H Random Glucose Calcium Total Bilirubin AST ALT Alkaline Phosphatase Total Protein Albumin Globulin Albumin/Globulin Ratio reviewed J.P. - EKG Data EKG comments: reviewed J.P. - Imaging and Cardiology Chest x-ray Status: Report reviewed by me Assessment & Plan (1) Asthma with severe exacerbation Status: Acute Priority: High - Assessment and Plan (Free Text) Plan: Prednisone in tapering doses, Advair 50/500 , continue Duoneb , Singulair , Mucinex , Prometh with Codeine and rest of Tx. - Date & Time Date: 10/09/17 Time: 13:00
[2017-10-09] MEDS: Insulin Detemir 100 Units/ml Inj SC SCH (21:56)
[2017-10-09] MEDS: Fluticasone-Salmeterol 500-50mcg Diskus IH SCH (21:57)
[2017-10-10] MEDS: Albuterol-Ipratrop 3 mg / 0.5 (3 ml) UD INH SCH ×7 (02:19→23:23)
[2017-10-10 06:38] LABS: HEMOGLOBIN 15.3 g/dL (12.0-16.0); MEAN CELL VOLUME 90.2 fl (81.0-99.0); MEAN CORPUSCULAR HEMOGLOBIN 29.9 pg (27.0-31.0); MEAN CORPUSCULAR HGB CONC 33.1 g/dL (33.0-37.0); RBC 5.13 Mil/uL (3.80-5.20); RED CELL DISTRIBUTION WIDTH 13.2 % (11.5-14.5); WHITE BLOOD COUNT 11.8 K/uL (4.8-10.8)
[2017-10-10 06:51] LABS: BLOOD UREA NITROGEN 32 mg/dl (7-17); CALCIUM 9.6 mg/dL (8.4-10.2)
[2017-10-10 07:19] LABS: GFR AFRICAN-AMERICAN > 60; GFR NON-AFRICAN AMERICAN > 60
[2017-10-10] MEDS: Fluticasone-Salmeterol 500-50mcg Diskus IH SCH ×2 (08:33→21:55)
[2017-10-10] MEDS: Alum-Mag Hydrox-Simethicone Susp (30 mL) PO SCH (08:33)
[2017-10-10] MEDS: Insulin Regular 100 units/ml SC SCH ×4 (08:34→22:00)
[2017-10-10] MEDS: Enoxaparin 40 mg Syringe SC SCH (08:35)
[2017-10-10] MEDS: guaiFENesin-DM 600-30 mg ER Tab PO SCH (08:35)
[2017-10-10] MEDS: Pantoprazole 40 mg EC Tab PO SCH (08:35)
[2017-10-10] MEDS: Calcium-Vit D 500 mg-200 Units Tab UD PO SCH ×2 (08:35→17:50)
--- NOTE | 2017-10-10 08:44 | CP.PCM.PN ---
Subjective - Date & Time of Evaluation Date of Evaluation: 10/10/17 Time of Evaluation: 08:35 - Subjective Subjective: Pt seen and examined at bedside this am. Reports bm this am. Denies significant overnight events. Reports slight improvement in SOB but still experiencing dry, non productive cough. Peak Flow is at 230. Denies N/V. Objective - Vital Signs/Intake and Output Vital Signs (last 24 hours): Temp Pulse Resp BP Pulse Ox 97.7 F 62 18 118/63 94 L 10/10/17 08:06 10/10/17 08:36 10/10/17 08:06 10/10/17 08:36 10/10/17 08:06 - Medications Medications: Current Medications Acetaminophen (Tylenol 325mg Tab) 650 mg PO Q6 PRN PRN Reason: Pain, Mild (1-3) Al Hydrox/Mg Hydrox/Simethicone (Maalox Plus 30 Ml) 30 ml PO DAILY [facility] Last Admin: 10/10/17 08:33 Dose: 30 ml Albuterol/Ipratropium (Duoneb 3 Mg/0.5 Mg (3 Ml) Ud) 3 ml INH RQ3 [facility] Last Admin: 10/10/17 07:58 Dose: 3 ml Aspirin (Aspirin Chewable) 81 mg PO HS [facility] Last Admin: 10/09/17 21:57 Dose: 81 mg Atorvastatin Calcium (Lipitor) 40 mg PO DAILY [facility] Last Admin: 10/10/17 08:35 Dose: 40 mg Calcium/Vitamin D (Oyster Shell Calcium/Vitamin D 500 Mg-200 Iu) 1 tab PO BID [facility] Last Admin: 10/10/17 08:35 Dose: 1 tab Dextrose (Dextrose 50% Inj) 0 ml IV STAT PRN; Protocol PRN Reason: Hypoglycemia Protocol Dextrose (Glutose 15) 0 gm PO ONCE PRN; Protocol PRN Reason: Hypoglycemia Protocol Docusate Sodium (Colace) 200 mg PO DAILY [facility] Last Admin: 10/10/17 08:33 Dose: 200 mg Enoxaparin Sodium (Lovenox) 40 mg SC DAILY [facility] PRN Reason: Protocol Last Admin: 10/10/17 08:35 Dose: 40 mg Escitalopram Oxalate (Lexapro) 20 mg PO DAILY [facility] Last Admin: 10/10/17 08:35 Dose: 20 mg Glucagon (Glucagen Diagnostic Kit) 0 mg IM STAT PRN; Protocol PRN Reason: Hypoglycemia Protocol Guaifenesin/Dextromethorphan (Mucinex-Dm 600-30 Mg) 1 tab PO BID [facility] Last Admin: 10/10/17 08:35 Dose: 1 tab Hydrochlorothiazide (Microzide) 12.5 mg PO DAILY [facility] Last Admin: 10/10/17 08:35 Dose: 12.5 mg Insulin Detemir (Levemir) 10 units SC [facility] Last Admin: 10/09/17 21:56 Dose: 10 units Insulin Human Regular (Humulin R) 0 units SC [facility] PRN Reason: Protocol Last Admin: 10/10/17 08:34 Dose: 2 units Lisinopril (Zestril) 40 mg PO DAILY [facility] Last Admin: 10/10/17 08:36 Dose: 40 mg Metformin HCl (Glucophage) 1,000 mg PO BID [facility] Last Admin: 10/10/17 08:34 Dose: 1,000 mg Methylprednisolone (Solu-Medrol) 40 mg IVP DAILY [facility] Last Admin: 10/10/17 08:36 Dose: 40 mg Montelukast Sodium (Singulair) 10 mg PO HS [facility] Last Admin: 10/09/17 21:57 Dose: 10 mg Ondansetron HCl (Zofran Tab) 4 mg PO Q6 PRN PRN Reason: Nausea/Vomiting Last Admin: 10/06/17 15:27 Dose: 4 mg Pantoprazole Sodium (Protonix Ec Tab) 40 mg PO DAILY [facility] Last Admin: 10/10/17 08:35 Dose: 40 mg Promethazine HCl/Codeine (Phenergan/Codeine Oral Syrup) 5 ml PO Q6 PRN PRN Reason: Cough Fluticasone/Salmeterol (Advair Diskus 500/50) 1 puff IH Q12 [facility] Last Admin: 10/10/17 08:33 Dose: 1 puff - Labs Labs: 10/10/17 05:45 10/10/17 05:45 PT 12.3 Seconds (9.8-13.1) 10/05/17 22:00 INR 1.1 (0.9-1.2) 10/05/17 22:00 APTT 45.8 Seconds (25.6-37.1) H 10/05/17 22:00 - Constitutional Appears: Well, No Acute Distress - Eye Exam Eye Exam: EOMI - ENT Exam ENT Exam: Mucous Membranes Dry - Neck Exam Neck Exam: Full ROM - Respiratory Exam Respiratory Exam: Wheezes (slight at lower lung bases s/p duoneb treatment 15 min prior). absent: Accessory Muscle Use - Cardiovascular Exam Cardiovascular Exam: REGULAR RHYTHM, +S1, +S2 - GI/Abdominal Exam GI & Abdominal Exam: Soft, Normal Bowel Sounds. absent: Tenderness - Extremities Exam Extremities Exam: absent: Calf Tenderness - Back Exam Back Exam: absent: CVA tenderness (L), CVA tenderness (R) - Neurological Exam Neurological Exam: Alert, Awake, CN II-XII Intact, Oriented x3 - Psychiatric Exam Psychiatric exam: Normal Affect, Normal Mood Assessment and Plan - Assessment and Plan (Free Text) Plan: A: 62 y/o F with PMHx of HTN, DM type 2, Stomach Ulcer, Gastritis, Asthma admitted with asthma exacerbation. P: Asthma Exacerbation -Severe persistent Asthma; night time symptoms resolved -MedSurg unit -most likely 2/2 viral upper respiratory infection -Duoneb neb every 3 hours fabricio -Methylprednisolone 40 mg IVP BID -advair diskus inh Q12: increased to 500/50 -Montelukast 10 mg po HS -mucinex DM -chest physiotherapy TID -bcx: negative for 3D -peak flow monitoring -pulmonology consulted: Dr. Minor; recommendations appreciated: ABG, CXR, EKG, ECHO; steroids increase to BID -f/u: ABG, CXR, EKG, ECHO -monitor v/s and oral thrush: negative for thrush Hypertension -decreased HCTZ to 12.5 q D -d/c lisinopril 2/2 dry cough; added losartan 25 mg QD -monitor bp Diabetes Mellitus type 2 -c/w home metformin -added Levemir 10u qHS -accucheck before breakfast -hypoglycemic protocol with SS -diabetic diet Constipation -Resolved. BM this AM -s/p Maalox and Colace DVT prophylaxis -lovenox HIV screen: -pending Discharge plan -in progress
[2017-10-10] MEDS ORDERED: MethylPREDNISolone 40 mg Vial IVP SCH (09:00)
[2017-10-10] MEDS: Promethazine/Cod 6.25mg-10mg/5ml Syr UD PO PRN (13:27)
--- NOTE | 2017-10-10 14:40 | RAD ---
HISTORY: SOB COMPARISON: 10/05/2017 TECHNIQUE: Chest PA and lateral FINDINGS: LUNGS: No active pulmonary disease. PLEURA: No significant pleural effusion identified. No pneumothorax apparent. CARDIOVASCULAR: Normal. OSSEOUS STRUCTURES: No significant abnormalities. VISUALIZED UPPER ABDOMEN: Normal. OTHER FINDINGS: None. IMPRESSION: No active disease.
--- NOTE | 2017-10-10 16:46 | CP.PCM.PN ---
Subjective - Date & Time of Evaluation Date of Evaluation: 10/10/17 Time of Evaluation: 11:30 - Subjective Subjective: F/U Asthma Exacerbation Breathing better , no SOB , no SAMANO , occasional dry cough Objective - Vital Signs/Intake and Output Vital Signs (last 24 hours): Temp Pulse Resp BP Pulse Ox 98.3 F 75 20 97/62 L 95 10/10/17 15:51 10/10/17 15:51 10/10/17 15:51 10/10/17 15:51 10/10/17 15:51 - Medications Medications: Current Medications Acetaminophen (Tylenol 325mg Tab) 650 mg PO Q6 PRN PRN Reason: Pain, Mild (1-3) Al Hydrox/Mg Hydrox/Simethicone (Maalox Plus 30 Ml) 30 ml PO DAILY [facility] Last Admin: 10/10/17 08:33 Dose: 30 ml Albuterol/Ipratropium (Duoneb 3 Mg/0.5 Mg (3 Ml) Ud) 3 ml INH RQ3 [facility] Last Admin: 10/10/17 16:04 Dose: 3 ml Aspirin (Aspirin Chewable) 81 mg PO HS [facility] Last Admin: 10/09/17 21:57 Dose: 81 mg Atorvastatin Calcium (Lipitor) 40 mg PO DAILY [facility] Last Admin: 10/10/17 08:35 Dose: 40 mg Calcium/Vitamin D (Oyster Shell Calcium/Vitamin D 500 Mg-200 Iu) 1 tab PO BID [facility] Last Admin: 10/10/17 08:35 Dose: 1 tab Dextrose (Dextrose 50% Inj) 0 ml IV STAT PRN; Protocol PRN Reason: Hypoglycemia Protocol Dextrose (Glutose 15) 0 gm PO ONCE PRN; Protocol PRN Reason: Hypoglycemia Protocol Docusate Sodium (Colace) 200 mg PO DAILY [facility] Last Admin: 10/10/17 08:33 Dose: 200 mg Enoxaparin Sodium (Lovenox) 40 mg SC DAILY [facility] PRN Reason: Protocol Last Admin: 10/10/17 08:35 Dose: 40 mg Escitalopram Oxalate (Lexapro) 20 mg PO DAILY [facility] Last Admin: 10/10/17 08:35 Dose: 20 mg Glucagon (Glucagen Diagnostic Kit) 0 mg IM STAT PRN; Protocol PRN Reason: Hypoglycemia Protocol Hydrochlorothiazide (Microzide) 12.5 mg PO DAILY [facility] Insulin Detemir (Levemir) 10 units SC [facility] Last Admin: 10/09/17 21:56 Dose: 10 units Insulin Human Regular (Humulin R) 0 units SC [facility] PRN Reason: Protocol Last Admin: 10/10/17 13:27 Dose: 8 units Losartan Potassium (Cozaar) 25 mg PO DAILY [facility] Metformin HCl (Glucophage) 1,000 mg PO BID [facility] Last Admin: 10/10/17 08:34 Dose: 1,000 mg Methylprednisolone (Solu-Medrol) 40 mg IVP BID [facility] Montelukast Sodium (Singulair) 10 mg PO HS [facility] Last Admin: 10/09/17 21:57 Dose: 10 mg Ondansetron HCl (Zofran Tab) 4 mg PO Q6 PRN PRN Reason: Nausea/Vomiting Last Admin: 10/06/17 15:27 Dose: 4 mg Pantoprazole Sodium (Protonix Ec Tab) 40 mg PO DAILY [facility] Last Admin: 10/10/17 08:35 Dose: 40 mg Promethazine HCl/Codeine (Phenergan/Codeine Oral Syrup) 5 ml PO Q6 PRN PRN Reason: Cough Last Admin: 10/10/17 13:27 Dose: 5 ml Promethazine HCl/Codeine (Phenergan/Codeine Oral Syrup) 5 ml PO Q6 [facility] Fluticasone/Salmeterol (Advair Diskus 500/50) 1 puff IH Q12 [facility] Last Admin: 10/10/17 08:33 Dose: 1 puff - Labs Labs: 10/10/17 05:45 10/10/17 05:45 PT 12.3 Seconds (9.8-13.1) 10/05/17 22:00 INR 1.1 (0.9-1.2) 10/05/17 22:00 APTT 45.8 Seconds (25.6-37.1) H 10/05/17 22:00 - Constitutional Appears: No Acute Distress - Head Exam Head Exam: NORMAL INSPECTION - Eye Exam Eye Exam: PERRL - ENT Exam ENT Exam: Normal Exam - Neck Exam Neck Exam: Normal Inspection - Respiratory Exam Respiratory Exam: Decreased Breath Sounds (b/l), Wheezes (few at bases) - Cardiovascular Exam Cardiovascular Exam: REGULAR RHYTHM - GI/Abdominal Exam GI & Abdominal Exam: Soft, Normal Bowel Sounds - Extremities Exam Extremities Exam: Normal Inspection - Back Exam Back Exam: NORMAL INSPECTION - Neurological Exam Neurological Exam: Alert, Oriented x3 - Psychiatric Exam Psychiatric exam: Depressed - Skin Skin Exam: Warm Assessment and Plan (1) Asthma with severe exacerbation Status: Acute - Assessment and Plan (Free Text) Plan: Improved , stable to be discharged , treatment and f/u discussed with attendant.
[2017-10-10] MEDS: Promethazine/Cod 6.25mg-10mg/5ml Syr UD PO SCH ×2 (17:56→21:57)
[2017-10-10] MEDS: MethylPREDNISolone 40 mg Vial IVP SCH (18:07)
--- NOTE | 2017-10-10 19:06 | CARD ---
APPROVED REPORT EKG Measurement Heart [id number] <Conclusion> Sinus rhythm with short SC Possible Left atrial enlargement Borderline ECG
[2017-10-10] MEDS: Insulin Detemir 100 Units/ml Inj SC SCH (21:54)
[2017-10-11] MEDS: Albuterol-Ipratrop 3 mg / 0.5 (3 ml) UD INH SCH ×5 (03:37→14:32)
[2017-10-11] MEDS: Promethazine/Cod 6.25mg-10mg/5ml Syr UD PO SCH ×2 (04:30→13:19)
[2017-10-11] MEDS: Promethazine/Cod 6.25mg-10mg/5ml Syr UD PO PRN (06:22)
[2017-10-11 06:49] LABS: HEMOGLOBIN 15.9 g/dL (12.0-16.0); MEAN CELL VOLUME 89.5 fl (81.0-99.0); MEAN CORPUSCULAR HEMOGLOBIN 30.5 pg (27.0-31.0); RBC 5.23 Mil/uL (3.80-5.20); RED CELL DISTRIBUTION WIDTH 13.2 % (11.5-14.5); WHITE BLOOD COUNT 11.9 K/uL (4.8-10.8)
[2017-10-11 07:36] LABS: BLOOD UREA NITROGEN 28 mg/dl (7-17); CALCIUM 9.9 mg/dL (8.4-10.2); GFR AFRICAN-AMERICAN > 60; GFR NON-AFRICAN AMERICAN > 60
[2017-10-11 08:14] VITALS: BP 119/72; RESP 18; TEMP 97.7; O2SAT 96
[2017-10-11] MEDS: Fluticasone-Salmeterol 500-50mcg Diskus IH SCH (08:51)
[2017-10-11] MEDS: Insulin Regular 100 units/ml SC SCH ×3 (08:54→14:37)
[2017-10-11] MEDS: Enoxaparin 40 mg Syringe SC SCH (08:55)
[2017-10-11] MEDS: Alum-Mag Hydrox-Simethicone Susp (30 mL) PO SCH (08:55)
[2017-10-11] MEDS: Calcium-Vit D 500 mg-200 Units Tab UD PO SCH (08:55)
[2017-10-11 08:56] VITALS: PULSE 61
[2017-10-11] MEDS: MethylPREDNISolone 40 mg Vial IVP SCH (08:56)
[2017-10-11] MEDS: Pantoprazole 40 mg EC Tab PO SCH (08:56)
--- NOTE | 2017-10-11 09:29 | CP.PCM.DIS ---
Provider - Provider Date of Admission: 10/06/17 16:27 Attending physician: Jesika Jones MD Time Spent in preparation of Discharge (in minutes): 20 Diagnosis - Discharge Diagnosis (1) Asthma with severe exacerbation Status: Acute Priority: High Hospital Course - Lab Results Lab Results: Micro Results 10/05/17 22:20 Blood-Venous Blood Culture - Final NO GROWTH AFTER 5 DAYS 10/05/17 22:20 Blood-Venous Gram Stain - Final TEST NOT PERFORMED 10/05/17 22:20 Blood-Venous Blood Culture - Final NO GROWTH AFTER 5 DAYS 10/05/17 22:20 Blood-Venous Gram Stain - Final TEST NOT PERFORMED Most Recent Lab Values WBC 11.9 K/uL (4.8-10.8) H 10/11/17 05:55 RBC 5.23 Mil/uL (3.80-5.20) H 10/11/17 05:55 Hgb 15.9 g/dL (12.0-16.0) 10/11/17 05:55 Hct 46.7 % (34.0-47.0) 10/11/17 05:55 MCV 89.5 fl (81.0-99.0) 10/11/17 05:55 MCH 30.5 pg (27.0-31.0) 10/11/17 05:55 MCHC 34.0 g/dL (33.0-37.0) 10/11/17 05:55 RDW 13.2 % (11.5-14.5) 10/11/17 05:55 Plt Count 314 K/uL (130-400) 10/11/17 05:55 MPV 8.5 fl (7.2-11.7) 10/06/17 06:25 Neut % (Auto) 86.5 % (50.0-75.0) H 10/06/17 06:25 Lymph % (Auto) 12.1 % (20.0-40.0) L 10/06/17 06:25 [place] % (Auto) 1.1 % (0.0-10.0) 10/06/17 06:25 Eos % (Auto) 0.1 % (0.0-4.0) 10/06/17 06:25 Baso % (Auto) 0.2 % (0.0-2.0) 10/06/17 06:25 Neut # (Auto) 5.2 K/uL (1.8-7.0) 10/06/17 06:25 Lymph # (Auto) 0.7 K/uL (1.0-4.3) L 10/06/17 06:25 [place] # (Auto) 0.1 K/uL (0.0-0.8) 10/06/17 06:25 Eos # (Auto) 0.0 K/uL (0.0-0.7) 10/06/17 06:25 Baso # (Auto) 0.0 K/uL (0.0-0.2) 10/06/17 06:25 PT 12.3 Seconds (9.8-13.1) 10/05/17 22:00 INR 1.1 (0.9-1.2) 10/05/17 22:00 APTT 45.8 Seconds (25.6-37.1) H 10/05/17 22:00 Sodium 138 mmol/l (132-148) 10/11/17 05:55 Potassium 5.0 MMOL/L (3.6-5.0) 10/11/17 05:55 Chloride 94 mmol/L (98-107) L 10/11/17 05:55 Carbon Dioxide 30 mmol/L (22-30) 10/11/17 05:55 Anion Gap 19 (10-20) 10/11/17 05:55 BUN 28 mg/dl (7-17) H 10/11/17 05:55 Creatinine 0.7 mg/dl (0.7-1.2) 10/11/17 05:55 Est GFR ( Amer) > 60 10/11/17 05:55 Est GFR (Non-Af Amer) > 60 10/11/17 05:55 POC Glucose (mg/dL) 219 mg/dL (65-110) H 10/11/17 05:27 Random Glucose 249 mg/dL (65-105) H 10/11/17 05:55 Calcium 9.9 mg/dL (8.4-10.2) 10/11/17 05:55 Phosphorus 3.7 mg/dl (2.5-4.5) 10/05/17 22:00 Magnesium 1.9 MG/DL (1.6-2.3) 10/05/17 22:00 Total Bilirubin 0.8 mg/dl (0.2-1.3) 10/09/17 05:45 AST 18 U/L (14-36) 10/09/17 05:45 ALT 41 U/L (9-52) 10/09/17 05:45 Alkaline Phosphatase 102 U/L (38-126) 10/09/17 05:45 Troponin I < 0.0120 ng/mL (0.00-0.120) 10/06/17 06:25 NT-Pro-B Natriuret Pep 149 pg/ml (0-900) 10/05/17 22:00 Total Protein 7.6 G/DL (6.3-8.2) 10/09/17 05:45 Albumin 4.1 g/dL (3.5-5.0) 10/09/17 05:45 Globulin 3.5 gm/dL (2.2-3.9) 10/09/17 05:45 Albumin/Globulin Ratio 1.2 (1.0-2.1) 10/09/17 05:45 HIV 1&2 Ag/Ab, 4th Gen Nonreactive (Nonreactive) 10/09/17 11:24 Influenza Typ A,B (EIA) Negative for flu a/b (NEGATIVE) 10/05/17 22:30 - Hospital Course Hospital Course: 62 y/o F with PMHx of HTN, DM type 2, Stomach Ulcer, Gastritis, Asthma admitted with asthma exacerbation. Pt stabilized with Duoneb, albuterol, Advair diskus changed to 500/50, methylprednisolone taper, and montelukast. HTN meds changed: d/c lisinopril 2/2 dry cough, replaced with losartan 25 mg qd and decreased HCTZ to 12.5 qd. DM2: levamir 10 u added qhs. d/c home with medrol dose pack. Discharge Exam - Head Exam Head Exam: NORMAL INSPECTION - Eye Exam Eye Exam: EOMI - Respiratory Exam Respiratory Exam: Clear to PA & Lateral. absent: Wheezes - Cardiovascular Exam Cardiovascular Exam: REGULAR RHYTHM, +S1, +S2 - GI/Abdominal Exam GI & Abdominal Exam: Normal Bowel Sounds, Soft. absent: Tenderness - Extremities Exam Extremities exam: calf tenderness - Back Exam Back exam: absent: CVA tenderness (L), CVA tenderness (R) - Neurological Exam Neurological exam: Alert, CN II-XII Intact, Oriented x3 - Psychiatric Exam Psychiatric exam: Normal Affect, Normal Mood Discharge Plan - Discharge Medications Prescriptions: Acetaminophen [Tylenol 325mg tab] 650 mg PO Q6 PRN #30 tab PRN Reason: Pain, Mild (1-3) Albuterol HFA [Ventolin HFA 90 mcg/actuation (8 g)] 90 mcg PO PRN PRN 30 Days inhaler PRN Reason: Shortness Of Breath Fluticasone/Salmeterol 500/50 [Advair Diskus 500/50] 1 puff IH Q12 #1 unit hydroCHLOROthiazide [Microzide] 12.5 mg PO DAILY #30 cap Losartan [Cozaar] 25 mg PO DAILY #30 tab metFORMIN [glucOPHAGE] 500 mg PO BID #30 tab Methylprednisolone [Medrol Dose Pack (21 tabs)] 4 mg PO DAILY #21 mg Montelukast [Singulair] 10 mg PO HS 30 Days #30 tab - Follow Up Plan Condition: FAIR Disposition: HOME/ ROUTINE Instructions: Asthma, Adult (DC), Asthma (DC) Referrals: [facility] [Outside] Kenneth Hughes MD [Family Provider] -
--- NOTE | 2017-10-11 11:44 | CARD ---
APPROVED REPORT EXAM: Two-dimensional and M-mode echocardiogram with Doppler and color Doppler. Other Information Quality : AverageRhythm : NSR INDICATION Dyspnea 2D DIMENSIONS IVSd1.05 (0.7-1.1cm)LVDd4.31 (3.9-5.9cm) LVOT Diameter1.75 (1.8-2.4cm)PWd0.73 (0.7-1.1cm) IVSs1.20 (0.8-1.2cm)LVDs2.96 (2.5-4.0cm) FS (%) 31.2 %PWs1.26 (0.8-1.2cm) M-Mode DIMENSIONS Left Atrium (MM)4.03 (2.5-4.0cm)IVSd1.38 (0.7-1.1cm) Aortic Root2.68 (2.2-3.7cm)LVDd4.59 (4.0-5.6cm) Aortic Cusp Exc.1.76 (1.5-2.0cm)PWd1.09 (0.7-1.1cm) IVSs1.47 cmFS (%) 48 % LVDs2.38 (2.0-3.8cm)PWs1.85 cm Mitral Valve MV E Mlfknutb60.6cm/sMV DECEL [id number] A Krzgqvrf66.7cm/s MV NPT61nzN/A ratio0.9MVA (PHT)4.21cm2 TDI Lateral E' Peak V7.33cm/sMedial E' Peak V6.52cm/sE/Lateral E'8.3 E/Medial E'9.3 Pulmonary Valve PV Peak Klqevjjs152.4cm/s LEFT VENTRICLE The left ventricle is normal size. There is normal left ventricular wall thickness. The left ventricular function is normal. The left ventricular ejection fraction is within the normal range. The Ejection Fraction is 60-65%. There is normal LV segmental wall motion. Transmitral Doppler flow pattern is Grade I-abnormal relaxation pattern. RIGHT VENTRICLE The right ventricle is normal size. The right ventricular systolic function is normal. ATRIA The left atrium size is normal. The right atrium size is normal. AORTIC VALVE The aortic valve is normal in structure. No aortic regurgitation is present. There is no aortic valvular stenosis. MITRAL VALVE The mitral valve is normal in structure. There is no mitral valve stenosis. There is no mitral valve regurgitation noted. TRICUSPID VALVE The tricuspid valve is normal in structure. There is no tricuspid valve regurgitation noted. There is no tricuspid valve stenosis. PULMONIC VALVE The pulmonary valve is normal in structure. There is no pulmonic valvular regurgitation. GREAT VESSELS The aortic root is normal in size. The IVC is normal in size and collapses >50% with inspiration. PERICARDIAL EFFUSION The pericardium appears normal. <Conclusion> The left ventricle is normal size. The left ventricular function is normal. The left ventricular ejection fraction is within the normal range. The Ejection Fraction is 60-65%.
== END 2017-10-11 15:00 | disposition home health service (06) | DRG 203 ==
LOC: H.ER 20:44 → SUPCPDRO 20:44 → H.ERHOLD 23:53 → H.MEDSURG1 10-06 01:35 → OBSVTOIN 10-06 16:27 → H.MEDSURG1 10-08 23:28
PROVIDERS: ADMIT Family Medicine Geriatric Medicine; ATTEND Family Medicine Geriatric Medicine
PROC: 3E0F73Z Introduction of Anti-inflammatory into Respiratory Tract, Via Natural or Artificial Opening (ICD-10-PCS; principal; 2017-10-06)
DX: J45.51 Severe persistent asthma with (acute) exacerbation (principal); E11.65 Type 2 diabetes mellitus with hyperglycemia; J06.9 Acute upper respiratory infection, unspecified; I10 Essential (primary) hypertension; E78.00 Pure hypercholesterolemia, unspecified; K59.00 Constipation, unspecified; F31.9 Bipolar disorder, unspecified; F41.9 Anxiety disorder, unspecified; K29.70 Gastritis, unspecified, without bleeding; Z91.041 Radiographic dye allergy status; Z87.11 Personal history of peptic ulcer disease

== ENCOUNTER 2017-10-12 17:41 | Observation (INO) | payer MEDICARE ==
[2017-10-12 17:41] VITALS: BMI 31.6
[2017-10-12] MEDS ORDERED: Sodium Chloride 0.9% 500 ML IV STA (18:11)
[2017-10-12] MEDS ORDERED: Albuterol-Ipratrop 3 mg / 0.5 (3 ml) UD IH STA (18:11)
--- NOTE | 2017-10-12 18:22 | ED PDOC ---
HPI: Chest Pain Chief Complaint (Provider): My chest hurts History Per: Patient History/Exam Limitations: no limitations Onset/Duration Of Symptoms: Days Current Symptoms Are (Timing): Still Present Severity: Moderate Quality: Burning, Squeezing, "Pain". denies: Tightness, Pressure Associated Symptoms: denies: Nausea, Dyspnea, Diaphoresis, Syncope Modifying Factors: None Exacerbating Factors: Deep Breathing, Exertion Alleviating Factors: None Additional History Per: Patient <Yun Shaikh - Last Filed: 10/12/17 19:17> <Ander Mendoza - Last Filed: 10/12/17 19:25> Time Seen by Provider: 10/12/17 18:03 Chief Complaint (Nursing): Chest Pain Additional Complaint(s): 62 year old female sent from [facility] for evaluation of chest pain. Patient states she has had this chest pain for some time now, was discharged from the hospital yesterday but did not feel well when she left. She has burning chest pain, palpitations, dyspnea on exertion and has had cold sweats, polydipsia, polyuria, and left calf pain. She 'does not think this chest pain is gastritis, because she has had that in the past.' SAMANO occurs even with walking to the bathroom. She had dizziness yesterday, not now. ROS: denies abd pain, nausea, vomiting, diarrhea PMD: Dr. Cat Hughes at [facility] PMHX: HTN, DM type 2, Gastritis, Asthma medications: as per med rec- reconciled in ED Allergies: Iodine: burning sensation, an unknown antibiotic: rash Family Hx: Mother: passed from breast cancer, Father: passed from hepatitis Surgical Hx: Hysterectomy, Cardiac cath (12 years ago) without stent placement, Lipoma removal Socialx: never smoker, denies etoh/illicit drugs code status: full code (Yun Shaikh) Sent from clinic for ekg changes. Pt. dc recently form hospital for dyspnea. Chest pain present, but same as previous and ongoing for a long time. (Ander Mendoza) Past Medical History - Medical History PMH: Anxiety, Asthma, Bipolar Disorder, Bronchitis, Depression, Diabetes, Diverticulitis, Gastritis, HTN, Hypercholesterolemia Denies: HIV, Chronic Kidney Disease - Family History Family History: States: Diabetes, Hypertension <Yun Shaikh - Last Filed: 10/12/17 19:17> <Ander Mendoza - Last Filed: 10/12/17 19:25> Vital Signs: Last Vital Signs Temp 97.5 F L 10/12/17 17:42 Pulse 58 L 10/12/17 17:42 Resp 16 10/12/17 17:42 BP 141/83 10/12/17 17:42 Pulse Ox 99 10/12/17 19:18 - Home Medications Home Medications: Ambulatory Orders Medication Instructions Recorded Fluticasone/Salmeterol 500/50 1 puff IH Q12 #1 unit 10/11/17 [Advair Diskus 500/50] Losartan [Cozaar] 25 mg PO DAILY #30 tab 10/11/17 Methylprednisolone [Medrol Dose 4 mg PO DAILY #21 mg 10/11/17 Pack (21 tabs)] Montelukast [Singulair] 10 mg PO HS 30 Days #30 tab 10/11/17 hydroCHLOROthiazide [Microzide] 12.5 mg PO DAILY #30 cap 10/11/17 metFORMIN [glucOPHAGE] 500 mg PO BID #30 tab 10/11/17 Albuterol HFA [Ventolin HFA 90 2 puff IH Q6 PRN 10/12/17 mcg/actuation (8 g)] Albuterol/Ipratropium [Duoneb 3 3 ml IH Q6 PRN 10/12/17 mg/0.5 mg (3 ml) UD] Atorvastatin [Lipitor] 20 mg PO DAILY 10/12/17 Omeprazole [Omeprazole] 40 mg PO BID 10/12/17 - Allergies Allergies/Adverse Reactions: Allergies Allergy/AdvReac Type Severity Reaction Status Date / Time iodine Allergy RASH Verified 05/16/17 20:31 Wells Criteria for PE - Wells Criteria for Pulmonary Embolism Clinical Signs and Symptoms of DVT: Yes (sob, +hommans) P.E is #1 Diagnosis, or Equally Likely: Yes Heart Rate >100: No Immobilization at least 3 days;Surgery previous 4 weeks: No Previous, objectively diagnosed PE or DVT: No Hemoptysis: No Malignancy w/treatment within 6 months, or palliative: No Total Score: 4 <Yun Shaikh - Last Filed: 10/12/17 19:17> Review of Systems Constitutional: Positive for: Chills, Sweats, Weakness, Malaise. Negative for: Fever Eyes: Negative for: Pain, Vision Change ENT: Negative for: Ear Discharge, Nose Congestion Cardiovascular: Positive for: Chest Pain, Palpitations, Light Headedness. Negative for: Orthopnea, Paroxysmal Noc. Dyspnea, Edema Respiratory: Positive for: Shortness of Breath, SOB with Exertion. Negative for : Cough, Hemoptysis, Sputum, Wheezing Gastrointestinal: Negative for: Nausea, Vomiting, Abdominal Pain, Diarrhea, Constipation Genitourinary Female: Negative for: Dysuria, Frequency Musculoskeletal: Negative for: Neck Pain, Arm Pain Skin: Negative for: Rash Neurological: Positive for: Headache, Dizziness. Negative for: Confusion, Seizures, Altered Mental Status <Yun Shaikh - Last Filed: 10/12/17 19:17> Physical Exam - Physical Exam Appears: Positive for: Uncomfortable (ill appearing) Head Exam: Positive for: ATRAUMATIC, NORMAL INSPECTION, NORMOCEPHALIC Skin: Positive for: Normal Color, Warm Eye Exam: Positive for: EOMI, Normal appearance, PERRL Neck: Positive for: Normal, Painless ROM Cardiovascular/Chest: Positive for: Regular Rate, Rhythm, Chest Non Tender. Negative for: Edema, JVD, Murmur, Irregularly Irregular Respiratory: Positive for: Decreased Breath Sounds (diffusely). Negative for: Accessory Muscle Use, Rales, Rhonchi, Stridor, Wheezing, Respiratory Distress Gastrointestinal/Abdominal: Positive for: Normal Exam, Bowel Sounds, Soft. Negative for: Tenderness, Organomegaly Extremity: Positive for: Calf Tenderness (left side), Other (left calf appears larger than right). Negative for: Pedal Edema Neurologic/Psych: Positive for: Alert, coagulator II-XII, Oriented <Yun Shaikh - Last Filed: 10/12/17 19:17> - Physical Exam Neck: Positive for: Painless ROM Cardiovascular/Chest: Positive for: Regular Rate, Rhythm, Chest Non Tender Respiratory: Positive for: Decreased Breath Sounds. Negative for: Wheezing Extremity: Positive for: Calf Tenderness <Ander Mendoza - Last Filed: 10/12/17 19:25> - Laboratory Results Result Diagrams: 10/12/17 18:20 10/12/17 18:20 - ECG ECG Rhythm: Positive for: Sinus Bradycardia O2 Sat by Pulse Oximetry: 99 <Yun Shaikh - Last Filed: 10/12/17 19:17> - Laboratory Results Result Diagrams: 10/12/17 18:20 10/12/17 18:20 Interpretation Of Abn Labs: 28 bun - ECG ECG: Positive for: Interpreted By Me ECG Rhythm: Positive for: Normal QRS, Sinus Rhythm, Nonspecific Changes Pulse Ox Interpretation: Normal - Radiology X-Ray: Read By Radiologist X-Ray Interpretation: No Acute Disease <Ander Mendoza - Last Filed: 10/12/17 19:25> - Progress ED Course And Treament: 62 year old female with NIDDM, HTN, Asthma, obesity with burning chest pain, left calf pain. -patient was discharged from hospital yesterday, still taking her old medications, did not pear picker new medications yet. -rule out DVT/PE --CBC --CMP --BNP --Troponins --EKG --IVF --CXR --LE doppler --duoneb Will hold off on CTA-patient has allergy to contrast Patient seen and examined with Dr. Mendoza (Yun Shaikh) 1923: Stable. Will hold cta for pe eval as pt. has allergy to iodine. US neg for dvt. Decreases likeliness of blood clot but [facility] will admit and monitor. Pt. pain free. AAOx3. (Ander Mendoza) Disposition <Yun Shaikh - Last Filed: 10/12/17 19:17> - Patient ED Disposition Is Patient to be Admitted: Yes Counseled Patient/Family Regarding: Studies Performed, Diagnosis - Disposition Disposition Time: 19:25 - Pt Status Changed To: Hospital Disposition Of: Observation - POA Present On Arrival: None <Ander Mendoza - Last Filed: 10/12/17 19:25> - Clinical Impression Clinical Impression: Chest pain, Acute electrocardiogram changes - Disposition Condition: FAIR
[2017-10-12] MEDS ORDERED: Albuterol-Ipratrop 3 mg / 0.5 (3 ml) UD ONE (18:24)
--- NOTE | 2017-10-12 18:27 | RAD ---
HISTORY: dyspnea COMPARISON: Comparison made with prior chest radiograph 10/10/2017 FINDINGS: LUNGS: Suspect minor bibasilar atelectasis. PLEURA: No significant pleural effusion identified, no pneumothorax apparent. CARDIOVASCULAR: Heart remains enlarged OSSEOUS STRUCTURES: No significant abnormalities. VISUALIZED UPPER ABDOMEN: Normal. OTHER FINDINGS: None. IMPRESSION: Suspect minor bibasilar atelectasis.
[2017-10-12 18:30] LABS: BASO # 0.1 K/uL (0.0-0.2); BASO % 0.7 % (0.0-2.0); EOS # 0.1 K/uL (0.0-0.7); EOS % 1.2 % (0.0-4.0); HEMOGLOBIN 16.5 g/dL (12.0-16.0); LYMPH # 3.3 K/uL (1.0-4.3); LYMPH % 28.3 % (20.0-40.0); MEAN CELL VOLUME 88.8 fl (81.0-99.0); MEAN CORPUSCULAR HEMOGLOBIN 30.4 pg (27.0-31.0); MEAN CORPUSCULAR HGB CONC 34.3 g/dL (33.0-37.0); MEAN PLATELET VOLUME 8.1 fl (7.2-11.7); MONO # 0.8 K/uL (0.0-0.8); NEUT # 7.3 K/uL (1.8-7.0); NEUT % 62.8 % (50.0-75.0); RBC 5.41 Mil/uL (3.80-5.20); WHITE BLOOD COUNT 11.7 K/uL (4.8-10.8)
[2017-10-12 18:48] LABS: ALB/GLOB RATIO 1.1 (1.0-2.1); ALBUMIN 3.7 g/dL (3.5-5.0); ALT/SGPT 51 U/L (9-52); AST/SGOT 44 U/L (14-36); BLOOD UREA NITROGEN 28 mg/dl (7-17); CALCIUM 9.2 mg/dL (8.4-10.2); GFR AFRICAN-AMERICAN > 60; GFR NON-AFRICAN AMERICAN > 60
[2017-10-12 18:53] LABS: INR 0.9 (0.9-1.2); PARTIAL THROMBOPLASTIN TIME 26.3 Seconds (25.6-37.1); PROTHROMBIN TIME 10.4 Seconds (9.8-13.1)
[2017-10-12 18:55] LABS: B-TYPE NATRIURETIC PEPTIDE 86.3 pg/ml (0-900)
--- NOTE | 2017-10-12 19:16 | CP.PCM.HP ---
History of Present Illness - History of Present Illness History of Present Illness: 62 yo ,f, PMhx/o HTN, DM type 2, Stomach Ulcer, Gastritis, Asthma, presents to ED referred from clinic for evaluation of chest pain. Patient recently discharged from hospital 1 day ago for acute asthma exacerbation . Patient reports that the day before discharge she started feeling midsternal chest pain , pinching sensation, not radiated, intermittent, 3 t/day, while walking or at rest, alleviated by itself, different like when she has acid reflux or gastritis , associated with mild SOB on exertion at home. Patient evaluated in clinic today for f/u after discharged and reports other episode of chest pain while waiting to be seen associated with nausea, cold diaphoresis, alleviated with aspirin. She also c/o left calf pain in Ed, but states that calf pain has been for 1 month, intermittent, only when she climb stairs or sometimes while walking. Denies claudication. She denies fever, vomiting, pyrosis, pleuritic chest pain, hemoptysis, recent travel, hx/o DVT. On evaluation patient in ED, free of pain, reproducible low midsternal, but states pain is different , vitals normal. PMD: Dr. Cat Hughes at [facility].seen By Dr Erazo today Full Code PMHX:HTN, DM type 2, Stomach Ulcer, Gastritis, Asthma Allergies: Iodine: burning sensation, an unknown antibiotic: rash FHx: Mother: passed from breast cancer, Father: passed from hepatitis SHx: Hysterectomy, Cardiac cath (12 years ago) without stent placement, Lipoma removal Socialhx: never smoker, denies etoh/illicit drugs Ed Course: VS: normal except BP: 141/83 HR: 58 PE: low mid sternum reproducible chest pain Labs: CBC: 11.7>16.5<337 CMP: [id number] Imaging: EKG: sinus bradycarcia, short PA. T wave inverted V2. Same on discharge 2 days ago and on EKG 04/2017. Meds: Asprin in clinic ED: aspirin, Duoneb, NS 500 ml Present on Admission - Present on Admission Any Indicators Present on Admission: No History of DVT/PE: No History of Uncontrolled Diabetes: No Urinary Catheter: No Decubitus Ulcer Present: No Review of Systems - Review of Systems All systems: reviewed and no additional remarkable complaints except - Cardiovascular Cardiovascular: Chest Pain - Respiratory Respiratory: Dyspnea on Exertion - Gastrointestinal Gastrointestinal: Nausea Past Patient History - Infectious Disease Hx of Infectious Diseases: None - Past Medical History & Family History Past Medical History?: Yes - Past Social History Smoking Status: Never Smoked - CARDIAC Hx Hypercholesterolemia: Yes Hx Hypertension: Yes - PULMONARY Hx Asthma: Yes Hx Bronchitis: Yes - NEUROLOGICAL Hx Neurological Disorder: No - HEENT Hx HEENT Problems: No - RENAL Hx Chronic Kidney Disease: No - ENDOCRINE/METABOLIC Hx Endocrine Disorders: Yes Hx Diabetes Mellitus Type 2: Yes - HEMATOLOGICAL/ONCOLOGICAL Hx Human Immunodeficiency Virus (HIV): No - INTEGUMENTARY Hx Dermatological Problems: No - MUSCULOSKELETAL/RHEUMATOLOGICAL Hx Musculoskeletal Disorders: No Hx Falls: No - GASTROINTESTINAL Hx Diverticulitis: Yes Hx Gastritis: Yes - GENITOURINARY/GYNECOLOGICAL Hx Genitourinary Disorders: No - PSYCHIATRIC Hx Anxiety: Yes Hx Bipolar Disorder: Yes Hx Depression: Yes - SURGICAL HISTORY Hx Surgeries: Yes Hx Cardiac Catheterization: Yes Hx Hysterectomy: Yes Other/Comment: left lipoma. oophorectomy - ANESTHESIA Hx Anesthesia: Yes Hx Anesthesia Reactions: No Hx Malignant Hyperthermia: No Meds Allergies/Adverse Reactions: Allergies Allergy/AdvReac Type Severity Reaction Status Date / Time iodine Allergy RASH Verified 05/16/17 20:31 Physical Exam - Constitutional Appears: Non-toxic, No Acute Distress - Head Exam Head Exam: ATRAUMATIC, NORMOCEPHALIC - Eye Exam Eye Exam: Normal appearance - ENT Exam ENT Exam: Mucous Membranes Moist - Neck Exam Neck exam: Positive for: Normal Inspection - Respiratory Exam Respiratory Exam: Clear to Auscultation Bilateral. absent: Rales, Rhonchi, Wheezes - Cardiovascular Exam Cardiovascular Exam: REGULAR RHYTHM, +S1, +S2 Additional comments: reproducible midsternal chest pain - GI/Abdominal Exam GI & Abdominal Exam: Normal Bowel Sounds, Soft. absent: Guarding, Rebound - Extremities Exam Extremities exam: Positive for: normal capillary refill, normal inspection, pedal pulses present. Negative for: calf tenderness, joint swelling, pedal edema, tenderness - Back Exam Back exam: NORMAL INSPECTION. absent: CVA tenderness (L), CVA tenderness (R) - Neurological Exam Neurological exam: Alert, CN II-XII Intact, Oriented x3 - Psychiatric Exam Psychiatric exam: Normal Affect, Normal Mood - Skin Skin Exam: Intact, Normal Color Results - Vital Signs Recent Vital Signs: Last Vital Signs Temp 97.5 F L 04/19/18 17:42 Pulse 58 L 10/12/17 17:42 Resp 16 10/12/17 17:42 BP 141/83 10/12/17 17:42 Pulse Ox 99 10/12/17 18:54 - Labs Result Diagrams: 10/12/17 18:20 10/12/17 18:20 Labs: Laboratory Results - last 24 hr 10/12/17 10/12/17 10/12/17 18:04 18:20 18:20 WBC 11.7 H RBC 5.41 H Hgb 16.5 H Hct 48.0 H MCV 88.8 MCH 30.4 MCHC 34.3 RDW 13.0 Plt Count 337 MPV 8.1 Neut % (Auto) 62.8 Lymph % (Auto) 28.3 [place] % (Auto) 7.0 Eos % (Auto) 1.2 Baso % (Auto) 0.7 Neut # (Auto) 7.3 H Lymph # (Auto) 3.3 [place] # (Auto) 0.8 Eos # (Auto) 0.1 Baso # (Auto) 0.1 PT INR APTT Sodium 139 Potassium 4.1 Chloride 94 L Carbon Dioxide 33 H Anion Gap 16 BUN 28 H Creatinine 0.8 Est GFR ( Amer) > 60 Est GFR (Non-Af Amer) > 60 POC Glucose (mg/dL) 202 H Random Glucose 204 H Calcium 9.2 Total Bilirubin 0.9 AST 44 H D ALT 51 Alkaline Phosphatase 97 Troponin I < 0.0120 NT-Pro-B Natriuret Pep 86.3 Total Protein 7.0 Albumin 3.7 Globulin 3.3 Albumin/Globulin Ratio 1.1 10/12/17 18:20 WBC RBC Hgb Hct MCV MCH MCHC RDW Plt Count MPV Neut % (Auto) Lymph % (Auto) [place] % (Auto) Eos % (Auto) Baso % (Auto) Neut # (Auto) Lymph # (Auto) [place] # (Auto) Eos # (Auto) Baso # (Auto) PT 10.4 INR 0.9 APTT 26.3 Sodium Potassium Chloride Carbon Dioxide Anion Gap BUN Creatinine Est GFR ( Amer) Est GFR (Non-Af Amer) POC Glucose (mg/dL) Random Glucose Calcium Total Bilirubin AST ALT Alkaline Phosphatase Troponin I NT-Pro-B Natriuret Pep Total Protein Albumin Globulin Albumin/Globulin Ratio Assessment & Plan - Assessment and Plan (Free Text) Plan: 62 yo ,f, PMhx/o HTN, DM type 2, Stomach Ulcer, Gastritis, Asthma admitted for chest pain Assessment/Plan 1) Chest pain -to r/o ACS -chest pain reproducible but patient reports is different -admit telemetry -EKG in clinic: acute change V3 t wave invertion that normalized in hospital. Old V2 t wave invertion -troponin x 1 normal -s/p aspirin 325 mg PO -c/w Aspirin 81 mg daily , lipitor -f/u troponin x2 -repeat EKG in 4 hours -consider cardiology consult due to risk factors 2) HTN -c/w home meds 3) Asthma -recently discharged from hospital c/w medications on discharge 4) DM -Hgba1c 8 on 08/10/17 -c/w home metformin -accucheck ACHS -hypoglycemic protocol -diabetic diet 5) Left calf pain -for about 1 month worse when climbing stairs.no claudication -US Duplex lower ext pending report -consider arterial duplex outpatient. -geovanna sign neg. 6) DVT Prophylaxis Lovenox 40 mg sc daily
[2017-10-12] MEDS ORDERED: Oxycodone/Acetaminophen 5/325 mg Tab PO PRN (20:09)
[2017-10-12] MEDS ORDERED: Glucagon Recombinant 1 mg Inj IM PRN (20:52)
[2017-10-12] MEDS ORDERED: Dextrose 50% SYRINGE Inj (50 ml) IV PRN (20:52)
[2017-10-12] MEDS ORDERED: Albuterol-Ipratrop 3 mg / 0.5 (3 ml) UD INH PRN (23:26)
[2017-10-13 03:00] LABS: ALBUMIN 2.9 g/dL (3.5-5.0); ALT/SGPT 34 U/L (9-52); AST/SGOT 29 U/L (14-36); BLOOD UREA NITROGEN 27 mg/dl (7-17); CALCIUM 8.3 mg/dL (8.4-10.2); GFR AFRICAN-AMERICAN > 60; GFR NON-AFRICAN AMERICAN > 60
[2017-10-13 05:51] LABS: BASO # 0.1 K/uL (0.0-0.2); BASO % 0.6 % (0.0-2.0); EOS # 0.3 K/uL (0.0-0.7); EOS % 3.2 % (0.0-4.0); HEMOGLOBIN 14.5 g/dL (12.0-16.0); LYMPH # 3.7 K/uL (1.0-4.3); LYMPH % 39.5 % (20.0-40.0); MEAN CELL VOLUME 89.2 fl (81.0-99.0); MEAN CORPUSCULAR HEMOGLOBIN 30.2 pg (27.0-31.0); MEAN CORPUSCULAR HGB CONC 33.9 g/dL (33.0-37.0); MEAN PLATELET VOLUME 7.8 fl (7.2-11.7); MONO # 0.6 K/uL (0.0-0.8); MONO % 5.9 % (0.0-10.0); NEUT # 4.7 K/uL (1.8-7.0); NEUT % 50.8 % (50.0-75.0); RBC 4.81 Mil/uL (3.80-5.20); WHITE BLOOD COUNT 9.3 K/uL (4.8-10.8)
--- NOTE | 2017-10-13 08:29 | US ---
PROCEDURE: Bilateral lower extremity venous duplex Doppler. HISTORY: r/o dvt COMPARISON: Lower extremity ultrasound dated 02/11/2008. TECHNIQUE: Bilateral common femoral, superficial femoral, popliteal and posterior tibial veins were evaluated. Flow was assessed with color Doppler, compressibility, assessment of phasic flow and augmentation response. FINDINGS: COMMON FEMORAL VEIN: Right CFV: Unremarkable. Left CFV: Unremarkable. SUPERFICIAL FEMORAL VEIN: Right SFV: Unremarkable. Left SFV: Unremarkable. POPLITEAL VEIN: Right Popliteal: Unremarkable. Left Popliteal: Unremarkable. POSTERIOR TIBIAL VEIN: Right PTV: Unremarkable. Left PTV: Unremarkable. OTHER FINDINGS: None. IMPRESSION: No evidence of deep venous thrombosis.
[2017-10-13] MEDS ORDERED: MethylPREDNISolone 40 mg Vial IVP SCH (09:00)
[2017-10-13] MEDS ORDERED: Patient's Own Med (Methylprednisolone [Medrol Dose Pack (21 Tabs)] 4 MG) PO SCH (09:00)
[2017-10-13] MEDS ORDERED: methylPREDNISolone 40 MG in Sodium Chloride 0.9% 50 ML IVPB SCH (09:00)
--- NOTE | 2017-10-13 09:50 | CP.PCM.PN ---
Subjective - Date & Time of Evaluation Date of Evaluation: 10/13/17 Time of Evaluation: 08:30 - Subjective Subjective: pt seen and examined at bedside. Reports improvement in chest pain and sob. Denies significant overnight events. Denies n/v. Tolerating po diet. Objective - Vital Signs/Intake and Output Vital Signs (last 24 hours): Temp Pulse Resp BP Pulse Ox 97.9 F 53 L 20 125/80 97 10/13/17 08:02 10/13/17 08:02 10/13/17 08:02 10/13/17 08:02 10/13/17 08:02 - Medications Medications: Current Medications Acetaminophen (Tylenol 325mg Tab) 650 mg PO Q6 PRN PRN Reason: Pain, Mild (1-3) Acetaminophen (Tylenol 325mg Tab) 650 mg PO Q6 PRN PRN Reason: Fever >100.4 F Albuterol/Ipratropium (Duoneb 3 Mg/0.5 Mg (3 Ml) Ud) 3 ml INH RQ6 PRN PRN Reason: Shortness of Breath Aspirin (Ecotrin) 81 mg PO DAILY [facility] Atorvastatin Calcium (Lipitor) 20 mg PO DAILY [facility] Dextrose (Dextrose 50% Inj) 0 ml IV STAT PRN; Protocol PRN Reason: Hypoglycemia Protocol Dextrose (Glutose 15) 0 gm PO ONCE PRN; Protocol PRN Reason: Hypoglycemia Protocol Enoxaparin Sodium (Lovenox) 40 mg SC DAILY ENRIQUE PRN Reason: Protocol Glucagon (Glucagen Diagnostic Kit) 0 mg IM STAT PRN; Protocol PRN Reason: Hypoglycemia Protocol Hydrochlorothiazide (Microzide) 12.5 mg PO DAILY [facility] Insulin Detemir (Levemir) 10 units SC HS [facility] Losartan Potassium (Cozaar) 25 mg PO DAILY [facility] Metformin HCl (Glucophage) 500 mg PO BID [facility] Methylprednisolone (Solu-Medrol) 40 mg IVP DAILY [facility] Montelukast Sodium (Singulair) 10 mg PO HS [facility] Last Admin: 10/12/17 21:57 Dose: 10 mg Morphine Sulfate (Morphine) 2 mg IVP Q6 PRN PRN Reason: Pain, severe (8-10) Ondansetron HCl (Zofran Inj) 4 mg IVP Q6 PRN PRN Reason: Nausea/Vomiting Oxycodone/Acetaminophen (Percocet 5/325 Mg Tab) 1 tab PO Q4 PRN PRN Reason: Pain, moderate (4-7) Stop: 10/15/17 20:10 - Labs Labs: 10/13/17 05:00 10/13/17 02:17 PT 10.4 Seconds (9.8-13.1) 10/12/17 18:20 INR 0.9 (0.9-1.2) 10/12/17 18:20 APTT 26.3 Seconds (25.6-37.1) 10/12/17 18:20 - Constitutional Appears: Well, No Acute Distress - Eye Exam Eye Exam: EOMI - Neck Exam Neck Exam: Full ROM - Respiratory Exam Respiratory Exam: Prolonged Expiratory Phase - Cardiovascular Exam Cardiovascular Exam: REGULAR RHYTHM, +S1, +S2 - GI/Abdominal Exam GI & Abdominal Exam: Soft, Tenderness (epigastric), Normal Bowel Sounds - Extremities Exam Extremities Exam: absent: Calf Tenderness - Neurological Exam Neurological Exam: Alert, Awake, CN II-XII Intact, Oriented x3 - Psychiatric Exam Psychiatric exam: Normal Affect, Normal Mood Assessment and Plan - Assessment and Plan (Free Text) Plan: 62 yo F PMhx/o HTN, DM type 2, Stomach Ulcer, Gastritis, Asthma admitted for chest pain Chest pain -to r/o ACS -chest pain reproducible but patient reports is different; at epigastric region -admit telemetry -EKG in clinic: acute change V3 t wave inversion that normalized in hospital. Old V2 t wave inversion -troponin x 3 normal -s/p aspirin 325 mg PO -c/w Aspirin 81 mg daily, lipitor -repeat EKG: pending -Cardiology: Dr. Saini: recommendations appreciated: atypical chest pain with no evidence of ACS. Recommend stress test OP and daily ASA. HTN -c/w home meds Asthma -recently discharged from hospital c/w medications on discharge resumed po steroid 40 mg q daily DM -Hgba1c 8 on 08/10/17 -c/w home metformin -accucheck ACHS -hypoglycemic protocol -diabetic diet -added levamir 10 U QHS Left calf pain -for about 1 month worse when climbing stairs. no claudication -US Duplex lower ext: neg -consider arterial duplex outpatient. -geovanna sign neg. DVT Prophylaxis Lovenox 40 mg sc daily
[2017-10-13] MEDS: Enoxaparin 40 mg Syringe SC SCH (10:43)
--- NOTE | 2017-10-13 11:20 | CP.PCM.CON ---
History of Present Illness - History of Present Illness History of Present Illness: This 62-year-old hypertensive diabetic female who has a history of asthma and was recently hospitalized for it was rehospitalized for chest discomfort. The patient is not a smoker and has never suffered a myocardial infarction or congestive cardiac failure. She admits to a fairly sedentary lifestyle but does climb a flight of stairs without having experienced any chest pain in the past. The chest pain does not occur during physical exertion but mostly while at rest. This is not accompanied by any palpitations or exacerbation of dyspnea. She denies any perspiration associated with a or nausea or vomiting and the discomfort does not spread to her jaw or her arms. There is no family history of vascular disease. Physical examination shows a middle aged pleasant female who was able to lie virtually flat in bed and beats comfortably at 14-16 breaths per minute and can carry on a conversation. She was afebrile with a pulse rate of 78 bpm and regular and a blood pressure of 124/74 mmHg. Her extremities were warm and her nailbeds are pink. There was no central peripheral cyanosis. Her jugular venous pressure was not elevated and there was no edema over lower extremities. The pedal pulses are well felt. There were no carotid bruits. The apex was in the fifth space and the first and second heart sounds were normal. There was no murmur or gallop. There were no rales. Her abdomen was soft liver and spleen are not palpable. Her electro-cardiogram showed sinus rhythm with a normal EKG pattern. Comparison with her recent electrocardiograms again shows no evolution of ST T abnormalities of fresh Q waves. Her cardiac enzymes were negative for any evidence of myocyte injury. Her recent echocardiogram done last week shows a normal-sized left ventricle with normal regional wall motion and preserved left ventricular systolic function. There was no significant valvular abnormality. Impression: Atypical chest pain with no evidence of acute coronary syndrome. The patient may be allowed to return home and come back when she is over her asthmatic episode to undergo a stress test. In the meantime she should take an aspirin every day to protect herself. Past Patient History - Infectious Disease Hx of Infectious Diseases: None - Past Medical History & Family History Past Medical History?: Yes - Past Social History Smoking Status: Never Smoked - CARDIAC Hx Hypercholesterolemia: Yes Hx Hypertension: Yes - PULMONARY Hx Asthma: Yes - NEUROLOGICAL Hx Neurological Disorder: No - HEENT Hx HEENT Problems: No - RENAL Hx Chronic Kidney Disease: No - ENDOCRINE/METABOLIC Hx Endocrine Disorders: Yes Hx Diabetes Mellitus Type 2: Yes - HEMATOLOGICAL/ONCOLOGICAL Hx Human Immunodeficiency Virus (HIV): No - INTEGUMENTARY Hx Dermatological Problems: No - MUSCULOSKELETAL/RHEUMATOLOGICAL Hx Musculoskeletal Disorders: No Hx Falls: No - GASTROINTESTINAL Hx Diverticulitis: Yes Hx Gastritis: Yes - GENITOURINARY/GYNECOLOGICAL Hx Genitourinary Disorders: No - PSYCHIATRIC Hx Anxiety: Yes Hx Bipolar Disorder: Yes Hx Depression: Yes Hx Substance Use: No - SURGICAL HISTORY Hx Surgeries: Yes Hx Cardiac Catheterization: Yes Hx Hysterectomy: Yes Other/Comment: left lipoma. oophorectomy - ANESTHESIA Hx Anesthesia: Yes Hx Anesthesia Reactions: No Hx Malignant Hyperthermia: No Has any member of the family had a problem w/ anesthesia?: No Meds Allergies/Adverse Reactions: Allergies Allergy/AdvReac Type Severity Reaction Status Date / Time iodine Allergy RASH Verified 05/16/17 20:31 - Medications Medications: Current Medications Acetaminophen (Tylenol 325mg Tab) 650 mg PO Q6 PRN PRN Reason: Pain, Mild (1-3) Acetaminophen (Tylenol 325mg Tab) 650 mg PO Q6 PRN PRN Reason: Fever >100.4 F Albuterol/Ipratropium (Duoneb 3 Mg/0.5 Mg (3 Ml) Ud) 3 ml INH RQ6 PRN PRN Reason: Shortness of Breath Aspirin (Ecotrin) 81 mg PO DAILY [facility] Last Admin: 10/13/17 10:44 Dose: 81 mg Atorvastatin Calcium (Lipitor) 20 mg PO DAILY [facility] Last Admin: 10/13/17 10:44 Dose: 20 mg Dextrose (Dextrose 50% Inj) 0 ml IV STAT PRN; Protocol PRN Reason: Hypoglycemia Protocol Dextrose (Glutose 15) 0 gm PO ONCE PRN; Protocol PRN Reason: Hypoglycemia Protocol Enoxaparin Sodium (Lovenox) 40 mg SC DAILY [facility] PRN Reason: Protocol Last Admin: 10/13/17 10:43 Dose: 40 mg Glucagon (Glucagen Diagnostic Kit) 0 mg IM STAT PRN; Protocol PRN Reason: Hypoglycemia Protocol Hydrochlorothiazide (Microzide) 12.5 mg PO DAILY [facility] Last Admin: 10/13/17 10:44 Dose: 12.5 mg Insulin Detemir (Levemir) 10 units SC [facility] Losartan Potassium (Cozaar) 25 mg PO DAILY [facility] Last Admin: 10/13/17 10:44 Dose: Not Given Metformin HCl (Glucophage) 500 mg PO BID [facility] Last Admin: 10/13/17 10:44 Dose: 500 mg Methylprednisolone (Solu-Medrol) 40 mg IVP DAILY [facility] Last Admin: 10/13/17 10:49 Dose: 40 mg Montelukast Sodium (Singulair) 10 mg PO HS [facility] Last Admin: 10/12/17 21:57 Dose: 10 mg Morphine Sulfate (Morphine) 2 mg IVP Q6 PRN PRN Reason: Pain, severe (8-10) Ondansetron HCl (Zofran Inj) 4 mg IVP Q6 PRN PRN Reason: Nausea/Vomiting Oxycodone/Acetaminophen (Percocet 5/325 Mg Tab) 1 tab PO Q4 PRN PRN Reason: Pain, moderate (4-7) Stop: 10/15/17 20:10 Results - Vital Signs Recent Vital Signs: Last Vital Signs Temp 97.9 F 10/13/17 08:02 Pulse 50 L 10/13/17 10:44 Resp 20 10/13/17 08:02 BP 125/80 10/13/17 10:44 Pulse Ox 97 10/13/17 08:02 - Labs Result Diagrams: 10/13/17 05:00 10/13/17 02:17 Labs: Laboratory Results - last 24 hr 10/12/17 10/12/17 10/12/17 18:04 18:20 18:20 WBC 11.7 H RBC 5.41 H Hgb 16.5 H Hct 48.0 H MCV 88.8 MCH 30.4 MCHC 34.3 RDW 13.0 Plt Count 337 MPV 8.1 Neut % (Auto) 62.8 Lymph % (Auto) 28.3 [place] % (Auto) 7.0 Eos % (Auto) 1.2 Baso % (Auto) 0.7 Neut # (Auto) 7.3 H Lymph # (Auto) 3.3 [place] # (Auto) 0.8 Eos # (Auto) 0.1 Baso # (Auto) 0.1 PT INR APTT Sodium 139 Potassium 4.1 Chloride 94 L Carbon Dioxide 33 H Anion Gap 16 BUN 28 H Creatinine 0.8 Est GFR ( Amer) > 60 Est GFR (Non-Af Amer) > 60 POC Glucose (mg/dL) 202 H Random Glucose 204 H Calcium 9.2 Total Bilirubin 0.9 AST 44 H D ALT 51 Alkaline Phosphatase 97 Troponin I < 0.0120 NT-Pro-B Natriuret Pep 86.3 Total Protein 7.0 Albumin 3.7 Globulin 3.3 Albumin/Globulin Ratio 1.1 10/12/17 10/13/17 10/13/17 18:20 02:17 05:00 WBC 9.3 RBC 4.81 Hgb 14.5 D Hct 42.9 MCV 89.2 MCH 30.2 MCHC 33.9 RDW 13.0 Plt Count 285 MPV 7.8 Neut % (Auto) 50.8 Lymph % (Auto) 39.5 [place] % (Auto) 5.9 Eos % (Auto) 3.2 Baso % (Auto) 0.6 Neut # (Auto) 4.7 Lymph # (Auto) 3.7 [place] # (Auto) 0.6 Eos # (Auto) 0.3 Baso # (Auto) 0.1 PT 10.4 INR 0.9 APTT 26.3 Sodium 138 Potassium 4.0 Chloride 98 Carbon Dioxide 28 Anion Gap 16 BUN 27 H Creatinine 0.7 Est GFR ( Amer) > 60 Est GFR (Non-Af Amer) > 60 POC Glucose (mg/dL) Random Glucose 184 H Calcium 8.3 L Total Bilirubin 0.8 AST 29 ALT 34 Alkaline Phosphatase 73 Troponin I < 0.0120 NT-Pro-B Natriuret Pep Total Protein 5.7 L Albumin 2.9 L D Globulin 2.8 Albumin/Globulin Ratio 1.0 10/13/17 10/13/17 05:19 10:24 WBC RBC Hgb Hct MCV MCH MCHC RDW Plt Count MPV Neut % (Auto) Lymph % (Auto) [place] % (Auto) Eos % (Auto) Baso % (Auto) Neut # (Auto) Lymph # (Auto) [place] # (Auto) Eos # (Auto) Baso # (Auto) PT INR APTT Sodium Potassium Chloride Carbon Dioxide Anion Gap BUN Creatinine Est GFR ( Amer) Est GFR (Non-Af Amer) POC Glucose (mg/dL) 165 H Random Glucose Calcium Total Bilirubin AST ALT Alkaline Phosphatase Troponin I < 0.0120 NT-Pro-B Natriuret Pep Total Protein Albumin Globulin Albumin/Globulin Ratio
[2017-10-13] MEDS ORDERED: Insulin Detemir 100 Units/ml Inj SC SCH (22:00)
[2017-10-14 07:03] LABS: HEMOGLOBIN 14.6 g/dL (12.0-16.0); MEAN CELL VOLUME 88.4 fl (81.0-99.0); MEAN CORPUSCULAR HGB CONC 33.9 g/dL (33.0-37.0); RBC 4.87 Mil/uL (3.80-5.20); RED CELL DISTRIBUTION WIDTH 12.7 % (11.5-14.5); WHITE BLOOD COUNT 11.9 K/uL (4.8-10.8)
[2017-10-14 07:27] LABS: BLOOD UREA NITROGEN 21 mg/dl (7-17); CALCIUM 8.8 mg/dL (8.4-10.2); GFR AFRICAN-AMERICAN > 60; GFR NON-AFRICAN AMERICAN > 60
[2017-10-14] MEDS: Enoxaparin 40 mg Syringe SC SCH (09:15)
--- NOTE | 2017-10-14 10:23 | CP.PCM.DIS ---
<Erwin Banegas - Last Filed: 10/14/17 14:02> Provider - Provider Date of Admission: 10/12/17 19:18 Attending physician: Jesika Jones MD Hospital Course - Lab Results Lab Results: Most Recent Lab Values WBC 11.9 K/uL (4.8-10.8) H 10/14/17 06:15 RBC 4.87 Mil/uL (3.80-5.20) 10/14/17 06:15 Hgb 14.6 g/dL (12.0-16.0) 10/14/17 06:15 Hct 43.0 % (34.0-47.0) 10/14/17 06:15 MCV 88.4 fl (81.0-99.0) 10/14/17 06:15 MCH 30.0 pg (27.0-31.0) 10/14/17 06:15 MCHC 33.9 g/dL (33.0-37.0) 10/14/17 06:15 RDW 12.7 % (11.5-14.5) 10/14/17 06:15 Plt Count 308 K/uL (130-400) 10/14/17 06:15 MPV 7.8 fl (7.2-11.7) 10/13/17 05:00 Neut % (Auto) 50.8 % (50.0-75.0) 10/13/17 05:00 Lymph % (Auto) 39.5 % (20.0-40.0) 10/13/17 05:00 [place] % (Auto) 5.9 % (0.0-10.0) 10/13/17 05:00 Eos % (Auto) 3.2 % (0.0-4.0) 10/13/17 05:00 Baso % (Auto) 0.6 % (0.0-2.0) 10/13/17 05:00 Neut # (Auto) 4.7 K/uL (1.8-7.0) 10/13/17 05:00 Lymph # (Auto) 3.7 K/uL (1.0-4.3) 10/13/17 05:00 [place] # (Auto) 0.6 K/uL (0.0-0.8) 10/13/17 05:00 Eos # (Auto) 0.3 K/uL (0.0-0.7) 10/13/17 05:00 Baso # (Auto) 0.1 K/uL (0.0-0.2) 10/13/17 05:00 PT 10.4 Seconds (9.8-13.1) 10/12/17 18:20 INR 0.9 (0.9-1.2) 10/12/17 18:20 APTT 26.3 Seconds (25.6-37.1) 10/12/17 18:20 Sodium 138 mmol/l (132-148) 10/14/17 06:15 Potassium 4.0 MMOL/L (3.6-5.0) 10/14/17 06:15 Chloride 96 mmol/L (98-107) L 10/14/17 06:15 Carbon Dioxide 31 mmol/L (22-30) H 10/14/17 06:15 Anion Gap 15 (10-20) 10/14/17 06:15 BUN 21 mg/dl (7-17) H 10/14/17 06:15 Creatinine 0.7 mg/dl (0.7-1.2) 10/14/17 06:15 Est GFR ( Amer) > 60 10/14/17 06:15 Est GFR (Non-Af Amer) > 60 10/14/17 06:15 POC Glucose (mg/dL) 214 mg/dL (65-110) H 10/14/17 10:45 Random Glucose 220 mg/dL (65-105) H 10/14/17 06:15 Calcium 8.8 mg/dL (8.4-10.2) 10/14/17 06:15 Total Bilirubin 0.8 mg/dl (0.2-1.3) 10/13/17 02:17 AST 29 U/L (14-36) 10/13/17 02:17 ALT 34 U/L (9-52) 10/13/17 02:17 Alkaline Phosphatase 73 U/L (38-126) 10/13/17 02:17 Troponin I < 0.0120 ng/mL (0.00-0.120) 10/13/17 10:24 NT-Pro-B Natriuret Pep 86.3 pg/ml (0-900) 10/12/17 18:20 Total Protein 5.7 G/DL (6.3-8.2) L 10/13/17 02:17 Albumin 2.9 g/dL (3.5-5.0) L D 10/13/17 02:17 Globulin 2.8 gm/dL (2.2-3.9) 10/13/17 02:17 Albumin/Globulin Ratio 1.0 (1.0-2.1) 10/13/17 02:17 - Hospital Course Hospital Course: Acetaminophen [Tylenol 325mg tab] 650 mg PO Q6 PRN #30 tab PRN Reason: Pain, Mild (1-3) Albuterol HFA [Ventolin HFA 90 mcg/actuation (8 g)] 90 mcg PO PRN PRN 30 Days inhaler PRN Reason: Shortness Of Breath Fluticasone/Salmeterol 500/50 [Advair Diskus 500/50] 1 puff IH Q12 #1 unit hydroCHLOROthiazide [Microzide] 12.5 mg PO DAILY #30 cap Losartan [Cozaar] 25 mg PO DAILY #30 tab metFORMIN [glucOPHAGE] 500 mg PO BID #30 tab Methylprednisolone [Medrol Dose Pack (21 tabs)] 4 mg PO DAILY #21 mg Montelukast [Singulair] 10 mg PO HS 30 Days #30 tab Discharge Plan - Follow Up Plan Condition: FAIR Disposition: HOME/ ROUTINE Instructions: COPD Including Emphysema (DC), Hyperglycemia, Adult (DC), Exacerbation of COPD (DC) Additional Instructions: See primary Doctor for follow up in one week Referrals: [facility] [Outside] <Mark Zuniga - Last Filed: 10/15/17 21:58> Provider - Provider Date of Admission: 10/12/17 19:18 Attending physician: Jesika Jones MD Time Spent in preparation of Discharge (in minutes): 30 Diagnosis - Discharge Diagnosis (1) Atypical chest pain Status: Acute Hospital Course - Lab Results Lab Results: Most Recent Lab Values WBC 11.9 K/uL (4.8-10.8) H 10/14/17 06:15 RBC 4.87 Mil/uL (3.80-5.20) 10/14/17 06:15 Hgb 14.6 g/dL (12.0-16.0) 10/14/17 06:15 Hct 43.0 % (34.0-47.0) 10/14/17 06:15 MCV 88.4 fl (81.0-99.0) 10/14/17 06:15 MCH 30.0 pg (27.0-31.0) 10/14/17 06:15 MCHC 33.9 g/dL (33.0-37.0) 10/14/17 06:15 RDW 12.7 % (11.5-14.5) 10/14/17 06:15 Plt Count 308 K/uL (130-400) 10/14/17 06:15 MPV 7.8 fl (7.2-11.7) 10/13/17 05:00 Neut % (Auto) 50.8 % (50.0-75.0) 10/13/17 05:00 Lymph % (Auto) 39.5 % (20.0-40.0) 10/13/17 05:00 [place] % (Auto) 5.9 % (0.0-10.0) 10/13/17 05:00 Eos % (Auto) 3.2 % (0.0-4.0) 10/13/17 05:00 Baso % (Auto) 0.6 % (0.0-2.0) 10/13/17 05:00 Neut # (Auto) 4.7 K/uL (1.8-7.0) 10/13/17 05:00 Lymph # (Auto) 3.7 K/uL (1.0-4.3) 10/13/17 05:00 [place] # (Auto) 0.6 K/uL (0.0-0.8) 10/13/17 05:00 Eos # (Auto) 0.3 K/uL (0.0-0.7) 10/13/17 05:00 Baso # (Auto) 0.1 K/uL (0.0-0.2) 10/13/17 05:00 PT 10.4 Seconds (9.8-13.1) 10/12/17 18:20 INR 0.9 (0.9-1.2) 10/12/17 18:20 APTT 26.3 Seconds (25.6-37.1) 10/12/17 18:20 Sodium 138 mmol/l (132-148) 10/14/17 06:15 Potassium 4.0 MMOL/L (3.6-5.0) 10/14/17 06:15 Chloride 96 mmol/L (98-107) L 10/14/17 06:15 Carbon Dioxide 31 mmol/L (22-30) H 10/14/17 06:15 Anion Gap 15 (10-20) 10/14/17 06:15 BUN 21 mg/dl (7-17) H 10/14/17 06:15 Creatinine 0.7 mg/dl (0.7-1.2) 10/14/17 06:15 Est GFR ( Amer) > 60 10/14/17 06:15 Est GFR (Non-Af Amer) > 60 10/14/17 06:15 POC Glucose (mg/dL) 218 mg/dL (65-110) H 10/14/17 05:40 Random Glucose 220 mg/dL (65-105) H 10/14/17 06:15 Calcium 8.8 mg/dL (8.4-10.2) 10/14/17 06:15 Total Bilirubin 0.8 mg/dl (0.2-1.3) 10/13/17 02:17 AST 29 U/L (14-36) 10/13/17 02:17 ALT 34 U/L (9-52) 10/13/17 02:17 Alkaline Phosphatase 73 U/L (38-126) 10/13/17 02:17 Troponin I < 0.0120 ng/mL (0.00-0.120) 10/13/17 10:24 NT-Pro-B Natriuret Pep 86.3 pg/ml (0-900) 10/12/17 18:20 Total Protein 5.7 G/DL (6.3-8.2) L 10/13/17 02:17 Albumin 2.9 g/dL (3.5-5.0) L D 10/13/17 02:17 Globulin 2.8 gm/dL (2.2-3.9) 10/13/17 02:17 Albumin/Globulin Ratio 1.0 (1.0-2.1) 10/13/17 02:17 - Hospital Course Hospital Course: 62 y/o F with PMHx of HTN, DM type 2, Stomach Ulcer, Gastritis, Asthma admitted for chest pain rule out ACS. Pt. hospital course uneventful with normal EKG and Troponins. Pt. seen by Cardiology Dr. Yeny rodriguez hospital course and recommedation include aspirin 81mg and exercise stress test as outpatient. Pt. to follow up at [facility] within one week email sent to Pauly Montgomery. Medications on Discharge Acetaminophen [Tylenol 325mg tab] 650 mg PO Q6 PRN #30 tab PRN Reason: Pain, Mild (1-3) Albuterol HFA [Ventolin HFA 90 mcg/actuation (8 g)] 90 mcg PO PRN PRN 30 Days inhaler PRN Reason: Shortness Of Breath Fluticasone/Salmeterol 500/50 [Advair Diskus 500/50] 1 puff IH Q12 #1 unit hydroCHLOROthiazide [Microzide] 12.5 mg PO DAILY #30 cap Losartan [Cozaar] 25 mg PO DAILY #30 tab metFORMIN [glucOPHAGE] 500 mg PO BID #30 tab Methylprednisolone [Medrol Dose Pack (21 tabs)] 4 mg PO DAILY #21 mg Montelukast [Singulair] 10 mg PO HS 30 Days #30 tab Aspirin 81mg - Discharge Exam - Head Exam Head Exam: ATRAUMATIC, NORMOCEPHALIC - Eye Exam Eye Exam: Normal appearance - ENT Exam ENT Exam: Mucous Membranes Moist - Neck Exam Neck exam: Normal Inspection - Respiratory Exam Respiratory Exam: Clear to PA & Lateral, NORMAL BREATHING PATTERN - Cardiovascular Exam Cardiovascular Exam: REGULAR RHYTHM, +S1, +S2 - GI/Abdominal Exam GI & Abdominal Exam: Soft. absent: Tenderness - Extremities Exam Extremities exam: normal inspection, pedal pulses present - Neurological Exam Neurological exam: Alert, CN II-XII Intact, Oriented x3 - Psychiatric Exam Psychiatric exam: Normal Affect, Normal Mood Discharge Plan - Follow Up Plan Patient education suggested?: Yes
--- NOTE | 2017-10-14 11:37 | CARD ---
APPROVED REPORT EKG Measurement Heart [id number] <Conclusion> Sinus bradycardia with short MA Possible Left atrial enlargement Borderline ECG
[2017-10-14 16:09] VITALS: BP 126/77; PULSE 55; RESP 16; TEMP 98.3; O2SAT 98
== END 2017-10-14 18:50 | disposition home or self-care (01) ==
LOC: H.ER 17:41 → H.ERHOLD 19:18 → H.TEL 21:39
PROVIDERS: ADMIT Family Medicine Geriatric Medicine; ATTEND Family Medicine Geriatric Medicine
DX: R07.89 Other chest pain (principal); E11.9 Type 2 diabetes mellitus without complications; E78.00 Pure hypercholesterolemia, unspecified; F31.9 Bipolar disorder, unspecified; I10 Essential (primary) hypertension; J45.909 Unspecified asthma, uncomplicated; K29.70 Gastritis, unspecified, without bleeding; R63.1 Polydipsia; Z79.82 Long term (current) use of aspirin; Z79.84 Long term (current) use of oral hypoglycemic drugs; Z79.899 Other long term (current) drug therapy; Z80.3 Family history of malignant neoplasm of breast; Z87.11 Personal history of peptic ulcer disease; Z86.018 Personal history of other benign neoplasm; F32.9 Major depressive disorder, single episode, unspecified; F41.9 Anxiety disorder, unspecified
CPT/HCPCS: 36415; 71045; 80048; 80053; 82948; 83880; 84484; 85025; 85027; 85610; 85730; 93005; 93970; 94150; 94640; 99285; G0378; J1650; J2920; J7040

== ENCOUNTER 2018-09-14 19:20 | Inpatient (IN) | payer MEDICARE ==
[2018-09-14 19:20] VITALS: BMI 33.5
[2018-09-14] MEDS ORDERED: Sodium Chloride 0.9% 1,000 ML IV STA (19:54)
[2018-09-14] MEDS ORDERED: Magnesium Sulfate 2 gm/50 ml 2 GM/50 ML BAG IV STA (19:54)
[2018-09-14] MEDS ORDERED: Albuterol-Ipratrop 3 mg / 0.5 (3 ml) UD INH STA (19:55)
[2018-09-14] MEDS ORDERED: Magnesium Sulfate 2 gm/50 ml 2 GM/50 ML BAG ONE (20:05)
[2018-09-14] MEDS ORDERED: Albuterol-Ipratrop 3 mg / 0.5 (3 ml) UD ONE (20:07)
[2018-09-14 20:10] LABS: BASO # 0.1 K/uL (0.0-0.2); BASO % 0.7 % (0.0-2.0); EOS # 0.9 K/uL (0.0-0.7); EOS % 9.2 % (0.0-4.0); HEMOGLOBIN 14.9 g/dL (12.0-16.0); LYMPH # 3.2 K/uL (1.0-4.3); LYMPH % 31.3 % (20.0-40.0); MEAN CELL VOLUME 89.4 fl (81.0-99.0); MEAN CORPUSCULAR HEMOGLOBIN 30.2 pg (27.0-31.0); MEAN CORPUSCULAR HGB CONC 33.8 g/dL (33.0-37.0); MEAN PLATELET VOLUME 8.2 fl (7.2-11.7); MONO # 0.7 K/uL (0.0-0.8); MONO % 6.9 % (0.0-10.0); NEUT # 5.3 K/uL (1.8-7.0); NEUT % 51.9 % (50.0-75.0); NRBC % 0.1 % (0.0-0.0); RBC 4.94 Mil/uL (3.80-5.20); RED CELL DISTRIBUTION WIDTH 13.4 % (11.5-14.5); WHITE BLOOD COUNT 10.2 K/uL (4.8-10.8)
[2018-09-14 20:21] LABS: ALB/GLOB RATIO 1.3 (1.0-2.1); ALBUMIN 4.5 g/dL (3.5-5.0); ALT/SGPT 40 U/L (9-52); AST/SGOT 38 U/L (14-36); BLOOD UREA NITROGEN 20 mg/dl (7-17); CALCIUM 10.3 mg/dL (8.4-10.2); GFR NON-AFRICAN AMERICAN > 60
--- NOTE | 2018-09-14 21:56 | ED PDOC ---
HPI: Asthma <Med Alberto - Last Filed: 09/14/18 21:56> Chief Complaint (Provider): Shortness Of Breath History Per: Patient History/Exam Limitations: no limitations Onset/Duration Of Symptoms: Days (2X weeks ) Severity: Moderate Additional Complaint(s): 63 year old female with a past medical history of asthma presents to the ED with shortness of breath onset 2 weeks. Patients PMD is Dr. Hughes from the clinic. He referred the patient to an optical mechanic apprentice today. The optical mechanic apprentice saw that she was in respiratory distress and called the EMS from there. EMS gave her 2 doses of epi and in the ED she had mild respiratory distress. Patient states that her asthma worsened in the past week despite taking her medication Patient denies fever, nausea and vomiting. PMD: Kenneth Hughes MD <Arianne Garcia - Last Filed: 09/14/18 22:52> Time Seen by Provider: 09/14/18 19:39 Chief Complaint (Nursing): Shortness Of Breath Past Medical History Vital Signs: Last Vital Signs Temp 98.8 F 09/14/18 21:48 Pulse 78 09/14/18 21:48 Resp 17 09/14/18 21:48 BP 134/68 09/14/18 21:48 Pulse Ox 97 09/14/18 21:48 - Medical History PMH: Anxiety, Asthma, Bipolar Disorder, Bronchitis, Depression, Diabetes, Diverticulitis, Gastritis, HTN, Hypercholesterolemia Denies: HIV, Chronic Kidney Disease - Family History Family History: States: Unknown Family Hx, Diabetes, Hypertension <Med Alberto - Last Filed: 09/14/18 21:56> Vital Signs: Last Vital Signs Temp 98.8 F 09/14/18 21:48 Pulse 78 09/14/18 21:48 Resp 17 09/14/18 21:48 BP 134/68 09/14/18 21:48 Pulse Ox 97 09/14/18 21:56 <Arianne Garcia - Last Filed: 09/14/18 22:52> - Home Medications Home Medications: Ambulatory Orders Medication Instructions Recorded Fluticasone/Salmeterol 500/50 1 puff IH Q12 #1 unit 10/11/17 [Advair Diskus 500/50] Losartan [Cozaar] 25 mg PO DAILY #30 tab 10/11/17 Methylprednisolone [Medrol Dose 4 mg PO DAILY #21 mg 10/11/17 Pack (21 tabs)] Montelukast [Singulair] 10 mg PO HS 30 Days #30 tab 10/11/17 hydroCHLOROthiazide [Microzide] 12.5 mg PO DAILY #30 cap 10/11/17 metFORMIN [glucOPHAGE] 500 mg PO BID #30 tab 10/11/17 Albuterol HFA [Ventolin HFA 90 2 puff IH Q6 PRN 10/12/17 mcg/actuation (8 g)] Atorvastatin [Lipitor] 20 mg PO DAILY 10/12/17 Omeprazole 40 mg PO BID 10/12/17 Acetaminophen [Tylenol 325mg tab] 650 mg PO Q6 PRN tab 10/14/17 Aspirin [Ecotrin] 81 mg PO DAILY tabec 10/14/17 - Allergies Allergies/Adverse Reactions: Allergies Allergy/AdvReac Type Severity Reaction Status Date / Time iodine Allergy RASH Verified 09/14/18 19:32 - Laboratory Results Result Diagrams: 09/14/18 20:03 09/14/18 20:03 Lab Results: Total Bilirubin 0.5 mg/dl (0.2-1.3) 09/14/18 20:03 AST 38 U/L (14-36) H 09/14/18 20:03 ALT 40 U/L (9-52) 09/14/18 20:03 Alkaline Phosphatase 129 U/L (38-126) H 09/14/18 20:03 Total Protein 8.1 G/DL (6.3-8.2) 09/14/18 20:03 Albumin 4.5 g/dL (3.5-5.0) 09/14/18 20:03 Globulin 3.6 gm/dL (2.2-3.9) 09/14/18 20:03 Albumin/Globulin Ratio 1.3 (1.0-2.1) 09/14/18 20:03 - ECG O2 Sat by Pulse Oximetry: 97 <Med Alberto - Last Filed: 09/14/18 21:56> - Laboratory Results Result Diagrams: 09/14/18 20:03 09/14/18 20:03 Lab Results: Total Bilirubin 0.5 mg/dl (0.2-1.3) 09/14/18 20:03 AST 38 U/L (14-36) H 09/14/18 20:03 ALT 40 U/L (9-52) 09/14/18 20:03 Alkaline Phosphatase 129 U/L (38-126) H 09/14/18 20:03 Total Protein 8.1 G/DL (6.3-8.2) 09/14/18 20:03 Albumin 4.5 g/dL (3.5-5.0) 09/14/18 20:03 Globulin 3.6 gm/dL (2.2-3.9) 09/14/18 20:03 Albumin/Globulin Ratio 1.3 (1.0-2.1) 09/14/18 20:03 <Arianne Garcia - Last Filed: 09/14/18 22:52> Disposition <Med Alberto - Last Filed: 09/14/18 21:56> <Arianne Garcia - Last Filed: 09/14/18 22:52> - Disposition Condition: IMPROVED
[2018-09-14] MEDS ORDERED: Sodium Chloride 3% for Inhalation 4 ML VIAL.NEB IH PRN (22:20)
[2018-09-14] MEDS ORDERED: Glucagon Recombinant 1 mg Inj IM PRN (22:33)
[2018-09-14] MEDS ORDERED: Dextrose 50% SYRINGE Inj (50 ml) IV PRN (22:33)
--- NOTE | 2018-09-14 22:36 | CP.PCM.HP ---
History of Present Illness - History of Present Illness History of Present Illness: 63 y/o F with a PMHx of HTN, DM2, obesity, HLD, gastric ulcer and asthma was brought by EMS from associate account director office due to refractory SOB and wheezing. Pt was administered with 2 doses of epinephrine and Solu-Medrol with NO improvement. Pt explains her asthma has aggravated for the last 2 months, pt is having SOB, non- productive cough and wheezing every day, gets tired easily with walking and talking fast. Chest pain presente intermittently and exacerbates with coughing and deep inspiration. --Pt traveled to her country, [place], a few months ago. NO ill contacts reported. Pt denies hemoptysis, sweats, weight changes, nausea, vomiting, diarrhea, rash or peripheral edema. --Pt has visited her PCP a few times in the last month who has added medications such as Prednisone, Singulair and Ipratropium with NO improvement. Finally, pt was referred to Allergy and Pulmonology. Pt has appt with button bradder in 3 days. --Pt had a CT Chest on 09/03/18: Stable sub-pleural nodule less than 3 mm apex left lung. No change. Calcified granuloma right upper lobe 4 mm. Parabronchial thickening compatible with lower airway disease/bronchitis. No acute or significant findings related to/ accounting for the clinical presentation. PCP: Dr Hughes Allergy: Iodine Meds: as EMR PMHx: HTN, DM2, obesity, HLD, gastric ulcer, Bipolar disorder, breast mass and asthma PSHx: Total hysterectomy, catheterization 16 years ago due to severe chest pain but no HI reported. FHx: Brother has asthma. Mother , had DM2, HTN and HI. SHx: Never smoker, no alcohol and no rec drugs. ED Course: --VS were WNL except for elevated BP 147/99. --CBC showed eosinophilia. CMP with mild hypercalcemia. --CXR read by me: no consolidation, cardiomegaly, R costophernic angle not visible. --Duoneb x1, Solu-Medrol, Famotidine and Magnessium administered. Present on Admission - Present on Admission Any Indicators Present on Admission: No Review of Systems - Constitutional Constitutional: absent: Chills, Fever, Weight Loss - EENT Nose/Mouth/Throat: absent: Epistaxis, Nasal Congestion, Dysphagia, Tongue Swelling, Neck Mass - Cardiovascular Cardiovascular: absent: Chest Pain, Claudication, Dyspnea - Respiratory Respiratory: absent: Cough, Dyspnea, Hemoptysis - Gastrointestinal Gastrointestinal: absent: Abdominal Pain, Constipation, Nausea, Vomiting Past Patient History - Infectious Disease Hx of Infectious Diseases: None - Past Medical History & Family History Past Medical History?: Yes - Past Social History Smoking Status: Never Smoked - CARDIAC Hx Hypercholesterolemia: Yes Hx Hypertension: Yes - PULMONARY Hx Asthma: Yes Hx Bronchitis: Yes - NEUROLOGICAL Hx Neurological Disorder: No - HEENT Hx HEENT Problems: No - RENAL Hx Chronic Kidney Disease: No - ENDOCRINE/METABOLIC Hx Endocrine Disorders: Yes - HEMATOLOGICAL/ONCOLOGICAL Hx Human Immunodeficiency Virus (HIV): No - INTEGUMENTARY Hx Dermatological Problems: No - MUSCULOSKELETAL/RHEUMATOLOGICAL Hx Musculoskeletal Disorders: Yes - GASTROINTESTINAL Hx Diverticulitis: Yes Hx Gastritis: Yes - GENITOURINARY/GYNECOLOGICAL Hx Genitourinary Disorders: No - PSYCHIATRIC Hx Anxiety: Yes Hx Bipolar Disorder: Yes Hx Depression: Yes - SURGICAL HISTORY Hx Cardiac Catheterization: Yes - ANESTHESIA Hx Anesthesia: Yes Hx Anesthesia Reactions: No Hx Malignant Hyperthermia: No Meds Allergies/Adverse Reactions: Allergies Allergy/AdvReac Type Severity Reaction Status Date / Time iodine Allergy RASH Verified 09/14/18 19:32 Physical Exam - Constitutional Appears: Well, No Acute Distress - Head Exam Head Exam: ATRAUMATIC, NORMAL INSPECTION - Eye Exam Eye Exam: EOMI, Normal appearance - ENT Exam ENT Exam: Mucous Membranes Moist - Neck Exam Neck exam: Positive for: Full Rom, Normal Inspection. Negative for: Meningismus, Tenderness - Respiratory Exam Respiratory Exam: Rhonchi, Wheezes. absent: Rales Additional comments: tachypneic, able to talk in full sentences but get tired with long conversation. - Cardiovascular Exam Cardiovascular Exam: REGULAR RHYTHM, +S1, +S2 - GI/Abdominal Exam GI & Abdominal Exam: Soft. absent: Firm, Rebound, Tenderness - Extremities Exam Extremities exam: Positive for: full ROM, normal inspection. Negative for: calf tenderness, pedal edema, tenderness - Neurological Exam Neurological exam: Alert, Oriented x3 Results - Vital Signs Recent Vital Signs: Last Vital Signs Temp 98.8 F 09/14/18 21:48 Pulse 78 09/14/18 21:48 Resp 17 09/14/18 21:48 BP 134/68 09/14/18 21:48 Pulse Ox 97 09/14/18 21:56 - Labs Result Diagrams: 09/14/18 20:03 09/14/18 20:03 Labs: Laboratory Results - last 24 hr 09/14/18 09/14/18 20:03 20:03 WBC 10.2 RBC 4.94 Hgb 14.9 Hct 44.1 MCV 89.4 MCH 30.2 MCHC 33.8 RDW 13.4 Plt Count 355 MPV 8.2 Neut % (Auto) 51.9 Lymph % (Auto) 31.3 Cascade % (Auto) 6.9 Eos % (Auto) 9.2 H Baso % (Auto) 0.7 Neut # (Auto) 5.3 Lymph # (Auto) 3.2 Cascade # (Auto) 0.7 Eos # (Auto) 0.9 H Baso # (Auto) 0.1 Sodium 137 Potassium 4.0 Chloride 100 Carbon Dioxide 27 Anion Gap 14 BUN 20 H Creatinine 0.7 Est GFR ( Amer) > 60 Est GFR (Non-Af Amer) > 60 Random Glucose 213 H Calcium 10.3 H Total Bilirubin 0.5 AST 38 H ALT 40 Alkaline Phosphatase 129 H Total Protein 8.1 Albumin 4.5 Globulin 3.6 Albumin/Globulin Ratio 1.3 Assessment & Plan - Assessment and Plan (Free Text) Assessment: 63 y/o F with a PMHx of HTN, DM2, obesity, HLD, gastric ulcer and asthma is admitted for evaluation and mangement of refractory asthma exacerbation, SOB and wheezing. Pt administered 2 doses of Epinephrine with NO control. --CXR read by me: no consolidation, cardiomegaly, R costophernic angle not visible. --CT Chest on 09/03/18: Stable sub-pleural nodule less than 3 mm apex left lung. No change. Calcified granuloma right upper lobe 4 mm. Parabronchial thickening compatible with lower airway disease/bronchitis. No acute or significant findings related to/ accounting for the clinical presentation. PLAN: >Dyspnea and Wheezing --Afebrile, eosinophilia, no leukocytosis, VSS. --Possibly: Reractory asthma exacerbation, ABPA, fungal infection, Siddharth's pneumonia --Duonebs Q4H --Solu-medrol 40mg Q8H --Ordered pro-BNP as possible cardiomegaly on CXR. --F/U aspergillus screen, TB Quant, Fungitel, Sputum culture, pro-calcitonin, Urine Ag for strep pneumo and legionella. >Asthma, uncontrolled --Home meds resumed >HTN --Home meds resumed --Monitor vital signs >DM2 --Home meds resumed --On steroids therapy --ISS and hypoglycemia protocol >HLD --Home meds resumed >Hx of gastric ulcer --IV Pantoprazole resumed >DVT Prophylaxis --SCDs --Lovenox 40mg SC daily Case discussed with Dr Saul Ndiaye PGY-2 - Date & Time Date: 09/14/18 Time: 21:55
--- NOTE | 2018-09-14 23:03 | ED PDOC ---
HPI: Asthma Time Seen by Provider: 09/14/18 19:39 Chief Complaint (Nursing): Shortness Of Breath Chief Complaint (Provider): Shortness Of Breath History Per: Patient History/Exam Limitations: no limitations Onset/Duration Of Symptoms: Days (2X weeks ) Current Symptoms Are (Timing): Still Present Severity: Moderate Additional Complaint(s): 63 year old female with a past medical history of diabetes, hypertension, and asthma presents to the ED with shortness of breath onset 2 weeks. Patients PMD is Dr. Hughes from the clinic. He referred the patient to an vice president tax today. The vice president tax saw that she was in respiratory distress and called the EMS from there. EMS gave her 2 doses of epi and solumedrol. She reports mild improvement but continues to be in respiratory distress. Patient states that her asthma worsened in the past week despite taking her medication. Patient denies fever, nausea and vomiting. PMD: Kenneth Hughes MD Past Medical History Reviewed: Historical Data, Nursing Documentation, Vital Signs Vital Signs: Last Vital Signs Temp 98 F 09/14/18 22:38 Pulse 80 09/14/18 22:38 Resp 18 09/14/18 22:38 BP 133/85 09/14/18 22:38 Pulse Ox 97 09/14/18 22:38 TAYLOR Report Viewed: Yes - Medical History PMH: Anxiety, Asthma, Bipolar Disorder, Bronchitis, Depression, Diabetes, Diverticulitis, Gastritis, HTN, Hypercholesterolemia Denies: HIV, Chronic Kidney Disease - Surgical History Other surgeries: hysterectomy, left sided Oophorectomy - Family History Family History: States: No Known Family Hx, Unknown Family Hx, Diabetes, Hypertension - Home Medications Home Medications: Ambulatory Orders Medication Instructions Recorded Fluticasone/Salmeterol 500/50 1 puff IH Q12 #1 unit 10/11/17 [Advair Diskus 500/50] Losartan [Cozaar] 25 mg PO DAILY #30 tab 10/11/17 Methylprednisolone [Medrol Dose 4 mg PO DAILY #21 mg 10/11/17 Pack (21 tabs)] Montelukast [Singulair] 10 mg PO HS 30 Days #30 tab 10/11/17 hydroCHLOROthiazide [Microzide] 12.5 mg PO DAILY #30 cap 10/11/17 metFORMIN [glucOPHAGE] 500 mg PO BID #30 tab 04/18/18 Albuterol HFA [Ventolin HFA 90 2 puff IH Q6 PRN 10/12/17 mcg/actuation (8 g)] Atorvastatin [Lipitor] 20 mg PO DAILY 10/12/17 Omeprazole 40 mg PO BID 10/12/17 Acetaminophen [Tylenol 325mg tab] 650 mg PO Q6 PRN tab 10/14/17 Aspirin [Ecotrin] 81 mg PO DAILY tabec 10/14/17 - Allergies Allergies/Adverse Reactions: Allergies Allergy/AdvReac Type Severity Reaction Status Date / Time iodine Allergy RASH Verified 09/14/18 19:32 Review of Systems ROS Statement: Except As Marked, All Systems Reviewed And Found Negative Constitutional: Negative for: Fever Respiratory: Positive for: Other (mild respiratory distress) Gastrointestinal: Negative for: Nausea, Vomiting Physical Exam - Reviewed Nursing Documentation Reviewed: Yes Vital Signs Reviewed: Yes - Physical Exam Appears: Positive for: In Acute Distress Skin: Positive for: Normal Color, Warm, DRY Eye Exam: Positive for: EOMI, Normal appearance, PERRL Neck: Positive for: Normal, Painless ROM Cardiovascular/Chest: Positive for: Regular Rate, Rhythm Respiratory: Positive for: Decreased Breath Sounds (decreased air entry ), Rhonchi (inspiratory rhonchi), Wheezing (bilaterally diffused expiratory), Respiratory Distress (moderate ) Gastrointestinal/Abdominal: Positive for: Normal Exam, Soft Back: Positive for: Normal Inspection Extremity: Positive for: Normal ROM (upper and lower) Neurological/Psych: Positive for: Awake, Alert, Normal Tone. Negative for: Motor/Sensory Deficits, Facial Droop - Laboratory Results Result Diagrams: 09/15/18 04:30 09/15/18 04:30 Lab Results: Total Bilirubin 0.5 mg/dl (0.2-1.3) 09/14/18 20:03 AST 38 U/L (14-36) H 09/14/18 20:03 ALT 40 U/L (9-52) 09/14/18 20:03 Alkaline Phosphatase 129 U/L (38-126) H 09/14/18 20:03 Total Protein 8.1 G/DL (6.3-8.2) 09/14/18 20:03 Albumin 4.5 g/dL (3.5-5.0) 09/14/18 20:03 Globulin 3.6 gm/dL (2.2-3.9) 09/14/18 20:03 Albumin/Globulin Ratio 1.3 (1.0-2.1) 09/14/18 20:03 - ECG O2 Sat by Pulse Oximetry: 97 (RA) Pulse Ox Interpretation: Normal - Critical Care Total Time (In Min): 60 Medical Decision Making Medical Decision Makin:39 Impression: Acute respiratory distress, asthma exacerbation. Plan: * EKG * CMP * CBC * CXR portable 21:23 Labs reviewed show no clinically significant abnormalities Chest xray NAD Admitted for observation for asthma exacerbation, respiratory distress given severity of symptoms and clinical presentation. Scribe Attestation: Documented by Roro Davis, acting as a scribe for Med Alberto MD Provider Scribe Attestation: All medical record entries made by the Scribe were at my direction and personally dictated by me. I have reviewed the chart and agree that the record accurately reflects my personal performance of the history, physical exam, medical decision making, and the department course for this patient. I have also personally directed, reviewed, and agree with the discharge instructions and disposition. Disposition - Clinical Impression Clinical Impression: Asthma exacerbation - Patient ED Disposition Is Patient to be Admitted: Yes - Disposition Disposition Time: 21:23 Condition: IMPROVED - Pt Status Changed To: Hospital Disposition Of: Observation
[2018-09-14] MEDS: Albuterol-Ipratrop 3 mg / 0.5 (3 ml) UD INH SCH (23:17)
[2018-09-15] MEDS: Insulin Lispro (humaLOG) 100 Units/ml Inj SC SCH ×4 (00:33→16:45)
[2018-09-15] MEDS: MethylPREDNISolone 40 mg Vial IVP SCH ×3 (00:39→16:44)
[2018-09-15] MEDS ORDERED: methylPREDNISolone 40 MG in Sodium Chloride 0.9% 50 ML IVPB SCH (01:00)
[2018-09-15] MEDS ORDERED: guaiFENesin DM 200 mg-20 mg/10 ml UD PO PRN (01:34)
[2018-09-15 03:45] LABS: SQUAMOUS EPITHIAL < 1 /hpf (0-5); URINE BACTERIA RARE (<OCC); URINE BILIRUBIN NEGATIVE (NEGATIVE); URINE BLOOD NEGATIVE (NEGATIVE); URINE CLARITY CLEAR (Clear); URINE COLOR YELLOW (YELLOW); URINE GLUCOSE (UA) 150 mg/dL (NEGATIVE); URINE LEUKOCYTE ESTERASE SMALL Leu/uL (Negative); URINE PROTEIN NEGATIVE (NEGATIVE); URINE UROBILINOGEN 0.2-1.0 mg/dL (0.2-1.0)
[2018-09-15] MEDS: Albuterol-Ipratrop 3 mg / 0.5 (3 ml) UD INH SCH ×6 (04:11→23:18)
[2018-09-15 06:21] LABS: BASO % 0.6 % (0.0-2.0); EOS % 0.1 % (0.0-4.0); HEMOGLOBIN 13.8 g/dL (12.0-16.0); LYMPH # 0.8 K/uL (1.0-4.3); LYMPH % 11.2 % (20.0-40.0); MEAN CELL VOLUME 89.4 fl (81.0-99.0); MEAN CORPUSCULAR HEMOGLOBIN 29.9 pg (27.0-31.0); MEAN CORPUSCULAR HGB CONC 33.4 g/dL (33.0-37.0); MEAN PLATELET VOLUME 8.5 fl (7.2-11.7); MONO # 0.1 K/uL (0.0-0.8); MONO % 0.9 % (0.0-10.0); NEUT # 6.5 K/uL (1.8-7.0); NEUT % 87.2 % (50.0-75.0); NRBC % 0.1 % (0.0-0.0); RBC 4.6 Mil/uL (3.80-5.20); RED CELL DISTRIBUTION WIDTH 13.3 % (11.5-14.5); WHITE BLOOD COUNT 7.4 K/uL (4.8-10.8)
[2018-09-15 06:35] LABS: BLOOD UREA NITROGEN 21 mg/dl (7-17); CALCIUM 9.4 mg/dL (8.4-10.2); GFR NON-AFRICAN AMERICAN > 60
[2018-09-15 06:38] LABS: B-TYPE NATRIURETIC PEPTIDE 87.2 pg/ml (0-900)
--- NOTE | 2018-09-15 08:01 | CP.PCM.PN ---
<Juan J Pearson - Last Filed: 09/15/18 10:54> Subjective - Date & Time of Evaluation Date of Evaluation: 09/15/18 Time of Evaluation: 08:01 - Subjective Subjective: Patient seen and examined this morning at bedside, states feeling better but noted mild dyspneic on conversation, speak in full sentences. Endorses mild CP while cough. No acute overnight events, VSS, afebrile. Supplemental O2 via NC at 1 lpm Objective - Vital Signs/Intake and Output Vital Signs (last 24 hours): Temp Pulse Resp BP Pulse Ox 97.7 F 74 18 115/69 94 L 09/15/18 04:58 09/15/18 04:58 09/15/18 04:58 09/15/18 04:58 09/15/18 04:58 - Medications Medications: Current Medications Albuterol/Ipratropium (Duoneb 3 Mg/0.5 Mg (3 Ml) Ud) 3 ml INH RQ4 ENRIQUE Last Admin: 09/15/18 07:20 Dose: 3 ml Aspirin (Ecotrin) 81 mg PO DAILY ENRIQUE Atorvastatin Calcium (Lipitor) 20 mg PO DAILY [facility] Dextrose (Dextrose 50% Inj) 0 ml IV STAT PRN; Protocol PRN Reason: Hypoglycemia Protocol Dextrose (Glutose 15) 0 gm PO ONCE PRN; Protocol PRN Reason: Hypoglycemia Protocol Glucagon (Glucagen Diagnostic Kit) 0 mg IM STAT PRN; Protocol PRN Reason: Hypoglycemia Protocol Guaifenesin/Dextromethorphan (Robitussin Dm) 10 ml PO Q6 PRN PRN Reason: Cough Last Admin: 09/15/18 01:56 Dose: 10 ml Hydrochlorothiazide (Microzide) 12.5 mg PO DAILY [facility] Insulin Human Lispro (Humalog) 0 units SC ACCU-CHECK ENRIQUE; Protocol Last Admin: 09/15/18 00:33 Dose: Not Given Losartan Potassium (Cozaar) 25 mg PO DAILY [facility] Metformin HCl (Glucophage) 500 mg PO BID [facility] Methylprednisolone (Solu-Medrol) 40 mg IVP Q8 ENRIQUE Last Admin: 09/15/18 00:39 Dose: 40 mg Montelukast Sodium (Singulair) 10 mg PO HS ENRIQUE Pantoprazole Sodium (Protonix Inj) 40 mg IVP DAILY [facility] Fluticasone/Salmeterol (Advair Diskus 500/50) 1 puff IH Q12 ENRIQUE - Labs Labs: 09/15/18 04:30 09/15/18 04:30 - Constitutional Appears: No Acute Distress - Head Exam Head Exam: NORMAL INSPECTION - Eye Exam Eye Exam: EOMI, PERRL - Respiratory Exam Respiratory Exam: Chest Wall Tenderness, Decreased Breath Sounds (b/l), Wheezes, NORMAL BREATHING PATTERN. absent: Accessory Muscle Use, Rales, Rhonchi, Stridor - Cardiovascular Exam Cardiovascular Exam: REGULAR RHYTHM, +S1, +S2. absent: Tachycardia - GI/Abdominal Exam GI & Abdominal Exam: Soft, Normal Bowel Sounds. absent: Tenderness - Extremities Exam Extremities Exam: absent: Calf Tenderness, Pedal Edema - Neurological Exam Neurological Exam: Alert, Awake, Oriented x3 - Skin Skin Exam: Dry, Warm Assessment and Plan - Assessment and Plan (Free Text) Assessment: 63 y/o F with a PMHx of HTN, DM2, obesity, HLD, gastric ulcer and asthma is admitted for evaluation and mangement of refractory asthma exacerbation, SOB and wheezing. Pt administered 2 doses of Epinephrine with no control. --CXR read by me: no consolidation, cardiomegaly, R costophernic angle not visible. --CT Chest on 09/03/18: Stable sub-pleural nodule less than 3 mm apex left lung. No change. Calcified granuloma right upper lobe 4 mm. Parabronchial thickening compatible with lower airway disease/bronchitis. No acute or significant findings related to/ accounting for the clinical presentation. PLAN: Dyspnea and Wheezing Asthma, Severe persistent, uncontrolled - Afebrile, eosinophilia, no leukocytosis, VSS. - Possibly: Reractory asthma exacerbation, ABPA, fungal infection, Siddharth's pneumonia - Duonebs Q4H - Solu-medrol 40mg Q8H - pro-BNP wnl - F/U aspergillus screen, TB Quant, Fungitel, Sputum culture, pro-calcitonin, Urine Ag for strep pneumo and legionella. - Home meds resumed - Monitor vital signs HTN - controlled - Home meds resumed - Monitor vital signs DM2 - Home meds resumed - On steroids therapy - ISS and hypoglycemia protocol HLD - Home meds resumed Hx of gastric ulcer - IV Pantoprazole resumed DVT Prophylaxis - SCDs - Lovenox 40mg SC daily Case discussed with Dr Patrick. Sami [id number] <Zach Patrick - Last Filed: 09/15/18 11:21> Objective - Vital Signs/Intake and Output Vital Signs (last 24 hours): Temp Pulse Resp BP Pulse Ox 97.5 F L 76 18 129/76 98 09/15/18 08:04 09/15/18 09:00 09/15/18 08:04 09/15/18 08:23 09/15/18 08:04 - Medications Medications: Current Medications Albuterol/Ipratropium (Duoneb 3 Mg/0.5 Mg (3 Ml) Ud) 3 ml INH RQ4 [facility] Last Admin: 09/15/18 11:01 Dose: 3 ml Aspirin (Ecotrin) 81 mg PO DAILY ENRIQUE Last Admin: 09/15/18 08:23 Dose: 81 mg Atorvastatin Calcium (Lipitor) 20 mg PO DAILY [facility] Last Admin: 09/15/18 08:23 Dose: 20 mg Dextrose (Dextrose 50% Inj) 0 ml IV STAT PRN; Protocol PRN Reason: Hypoglycemia Protocol Dextrose (Glutose 15) 0 gm PO ONCE PRN; Protocol PRN Reason: Hypoglycemia Protocol Glucagon (Glucagen Diagnostic Kit) 0 mg IM STAT PRN; Protocol PRN Reason: Hypoglycemia Protocol Guaifenesin/Dextromethorphan (Robitussin Dm) 10 ml PO Q6 PRN PRN Reason: Cough Last Admin: 09/15/18 01:56 Dose: 10 ml Hydrochlorothiazide (Microzide) 12.5 mg PO DAILY [facility] Last Admin: 09/15/18 08:23 Dose: 12.5 mg Insulin Human Lispro (Humalog) 0 units SC ACCU-CHECK ENRIQUE; Protocol Last Admin: 09/15/18 08:45 Dose: 4 units Losartan Potassium (Cozaar) 25 mg PO DAILY [facility] Last Admin: 09/15/18 08:23 Dose: 25 mg Metformin HCl (Glucophage) 500 mg PO BID [facility] Last Admin: 09/15/18 08:23 Dose: 500 mg Methylprednisolone (Solu-Medrol) 40 mg IVP Q8 ENRIQUE Last Admin: 09/15/18 08:46 Dose: 40 mg Montelukast Sodium (Singulair) 10 mg PO HS [facility] Pantoprazole Sodium (Protonix Inj) 40 mg IVP DAILY ENRIQUE Last Admin: 09/15/18 08:46 Dose: 40 mg Fluticasone/Salmeterol (Advair Diskus 500/50) 1 puff IH Q12 ENRIQUE Last Admin: 09/15/18 08:23 Dose: 1 puff - Labs Labs: 09/15/18 04:30 09/15/18 04:30 Attending/Attestation - Attestation I have personally seen and examined this patient.: Yes I have fully participated in the care of the patient.: Yes I have reviewed all pertinent clinical information, including history, physical exam and plan: Yes Notes (Text): 09/15/18 11:19 Patient seen and examined with resident. Case discussed and agreed with assessment and plan.
[2018-09-15] MEDS: Fluticasone-Salmeterol 500-50mcg Diskus IH SCH ×2 (08:23→21:00)
--- NOTE | 2018-09-15 10:35 | RAD ---
Date of service: 09/14/2018 HISTORY: Chest pain COMPARISON: Comparison chest 01/26/2018 TECHNIQUE: 1 view obtained. FINDINGS: LUNGS: Mild bibasilar atelectasis. Several tiny nodular densities right upper lung field felt to represent small granulomata PLEURA: No significant pleural effusion identified, no pneumothorax apparent. CARDIOVASCULAR: Mild aortic atherosclerotic calcification present. Cardiomegaly.. No pulmonary vascular congestion. OSSEOUS STRUCTURES: No significant abnormalities. VISUALIZED UPPER ABDOMEN: Normal. OTHER FINDINGS: None. IMPRESSION: Mild bibasilar atelectasis. Several tiny nodular densities right upper lung field felt to represent small granulomata
--- NOTE | 2018-09-15 14:47 | CARD ---
APPROVED REPORT Date of service: 09/14/2018 EKG Measurement Heart [id number] <Conclusion> Normal sinus rhythm Possible Left atrial enlargement Borderline ECG
[2018-09-16] MEDS: Insulin Lispro (humaLOG) 100 Units/ml Inj SC SCH ×5 (00:41→22:11)
[2018-09-16] MEDS: MethylPREDNISolone 40 mg Vial IVP SCH ×3 (00:42→17:06)
[2018-09-16] MEDS: Albuterol-Ipratrop 3 mg / 0.5 (3 ml) UD INH SCH ×6 (04:19→23:38)
[2018-09-16 08:32] LABS: BASO # 0.1 K/uL (0.0-0.2); BASO % 0.4 % (0.0-2.0); EOS % 0.1 % (0.0-4.0); HEMOGLOBIN 13.3 g/dL (12.0-16.0); LYMPH # 0.9 K/uL (1.0-4.3); LYMPH % 7.5 % (20.0-40.0); MEAN CELL VOLUME 88.9 fl (81.0-99.0); MEAN CORPUSCULAR HEMOGLOBIN 30.4 pg (27.0-31.0); MEAN CORPUSCULAR HGB CONC 34.3 g/dL (33.0-37.0); MONO # 0.3 K/uL (0.0-0.8); MONO % 2.8 % (0.0-10.0); NEUT # 10.8 K/uL (1.8-7.0); NEUT % 89.2 % (50.0-75.0); PLATELET COUNT 295 K/uL (130-400); RBC 4.36 Mil/uL (3.80-5.20); RED CELL DISTRIBUTION WIDTH 13.5 % (11.5-14.5); WHITE BLOOD COUNT 12.1 K/uL (4.8-10.8)
[2018-09-16 09:13] LABS: ALB/GLOB RATIO 1.2 (1.0-2.1); ALBUMIN 3.9 g/dL (3.5-5.0); ALT/SGPT 25 U/L (9-52); AST/SGOT 26 U/L (14-36); BLOOD UREA NITROGEN 26 mg/dl (7-17); CALCIUM 9.4 mg/dL (8.4-10.2); GFR NON-AFRICAN AMERICAN > 60
[2018-09-16] MEDS: Fluticasone-Salmeterol 500-50mcg Diskus IH SCH ×2 (09:45→21:17)
[2018-09-16 10:23] LABS: BANDS 1 % (0-2); LYMPHOCYTE 5 % (20-50); MONOCYTE 4 % (0-10); NEUTROPHIL 90 % (42-75); PLATELET ESTIMATE NORMAL (NORMAL); TOTAL CELLS COUNTED 100; TOXIC GRANULATION PRESENT
--- NOTE | 2018-09-16 13:03 | CP.PCM.PN ---
<Twin Santana - Last Filed: 09/16/18 13:07> Subjective - Date & Time of Evaluation Date of Evaluation: 09/16/18 Time of Evaluation: 07:00 - Subjective Subjective: Patient seen and examined at bedside today, no acute event overnight. Patient report that she still feel sob, and dyspnea upon walking, but state her symptoms have improved since then. otherwise patient have no other complains, she denies any chest pain, abd pain, diarrhea or constipation. Objective - Vital Signs/Intake and Output Vital Signs (last 24 hours): Temp Pulse Resp BP Pulse Ox 98.6 F 81 18 133/80 98 09/16/18 12:25 09/16/18 12:25 09/16/18 12:25 09/16/18 12:25 09/16/18 12:25 - Medications Medications: Current Medications Acetaminophen (Tylenol 325mg Tab) 650 mg PO Q6 PRN PRN Reason: Pain, Mild (1-3) Last Admin: 09/16/18 04:18 Dose: 650 mg Albuterol/Ipratropium (Duoneb 3 Mg/0.5 Mg (3 Ml) Ud) 3 ml INH RQ4 [facility] Last Admin: 09/16/18 11:18 Dose: 3 ml Aspirin (Ecotrin) 81 mg PO DAILY [facility] Last Admin: 09/16/18 09:46 Dose: 81 mg Atorvastatin Calcium (Lipitor) 20 mg PO DAILY [facility] Last Admin: 09/16/18 09:46 Dose: 20 mg Dextrose (Dextrose 50% Inj) 0 ml IV STAT PRN; Protocol PRN Reason: Hypoglycemia Protocol Dextrose (Glutose 15) 0 gm PO ONCE PRN; Protocol PRN Reason: Hypoglycemia Protocol Glucagon (Glucagen Diagnostic Kit) 0 mg IM STAT PRN; Protocol PRN Reason: Hypoglycemia Protocol Guaifenesin/Dextromethorphan (Robitussin Dm) 10 ml PO Q6 PRN PRN Reason: Cough Last Admin: 09/15/18 01:56 Dose: 10 ml Hydrochlorothiazide (Microzide) 12.5 mg PO DAILY [facility] Last Admin: 09/16/18 09:47 Dose: 12.5 mg Insulin Human Lispro (Humalog) 0 units SC ACCU-CHECK ENRIQUE; Protocol Last Admin: 09/16/18 06:58 Dose: 6 units Losartan Potassium (Cozaar) 25 mg PO DAILY [facility] Last Admin: 09/16/18 09:45 Dose: 25 mg Metformin HCl (Glucophage) 500 mg PO BID [facility] Last Admin: 09/16/18 09:46 Dose: 500 mg Methylprednisolone (Solu-Medrol) 40 mg IVP Q8 [facility] Last Admin: 09/16/18 09:49 Dose: 40 mg Montelukast Sodium (Singulair) 10 mg PO HS [facility] Last Admin: 09/15/18 21:00 Dose: 10 mg Pantoprazole Sodium (Protonix Inj) 40 mg IVP DAILY [facility] Last Admin: 09/16/18 09:47 Dose: 40 mg Fluticasone/Salmeterol (Advair Diskus 500/50) 1 puff IH Q12 [facility] Last Admin: 09/16/18 09:45 Dose: 1 puff - Labs Labs: 09/16/18 08:15 09/16/18 08:15 - Constitutional Appears: Well, Non-toxic, No Acute Distress - Head Exam Head Exam: ATRAUMATIC, NORMAL INSPECTION, NORMOCEPHALIC - Eye Exam Eye Exam: EOMI, Normal appearance, PERRL Pupil Exam: NORMAL ACCOMODATION, PERRL - ENT Exam ENT Exam: Mucous Membranes Moist, Normal Exam - Neck Exam Neck Exam: Full ROM, Normal Inspection - Respiratory Exam Respiratory Exam: Decreased Breath Sounds, Rales, Wheezes Additional comments: Right wheezing - Cardiovascular Exam Cardiovascular Exam: REGULAR RHYTHM, +S1, +S2 - GI/Abdominal Exam GI & Abdominal Exam: Soft, Normal Bowel Sounds - Extremities Exam Extremities Exam: Normal Inspection - Back Exam Back Exam: NORMAL INSPECTION - Neurological Exam Neurological Exam: Alert, Awake, Oriented x3 - Psychiatric Exam Psychiatric exam: Normal Affect, Normal Mood - Skin Skin Exam: Dry, Intact, Normal Color, Warm Assessment and Plan - Assessment and Plan (Free Text) Assessment: 63 yo f with PMhx of htn, DM2, obesity, HLD, Gastric ulcer and asthma admitted for evaluation and managment of Refractory asthma exacerbation. --CXR read : mild atelactasis b/l. several tiny nodular denisty on R upper lung that may represent small granulomata --CT Chest on 09/03/18: Stable sub-pleural nodule less than 3 mm apex left lung. No change. Calcified granuloma right upper lobe 4 mm. Parabronchial thickening compatible with lower airway disease/bronchitis. No acute or significant findings related to/ accounting for the clinical presentation. PLAN: Dyspnea and Wheezing Asthma, Severe persistent, uncontrolled - Afebrile, eosinophilia. -lung improving but still some wheezing on Right lower quadrant - Leukocytosis 12.1 posible due to prednisone - Possibly: Reractory asthma exacerbation, ABPA, fungal infection, Siddharth's pneumonia - Duonebs Q4H - Solu-medrol 40mg Q8H - pro-BNP wnl - F/U aspergillus screen, TB Quant, Fungitel, Sputum culture, pro-calcitonin, Urine Ag for strep pneumo and legionella. - Home meds resumed - Monitor vital signs HTN - controlled - Home meds resumed - Monitor vital signs DM2 - Home meds resumed - On steroids therapy - ISS and hypoglycemia protocol HLD - Home meds resumed Hx of gastric ulcer - IV Pantoprazole resumed DVT Prophylaxis - SCDs - Lovenox 40mg SC daily <Zach Patrick D - Last Filed: 09/16/18 13:29> Objective - Vital Signs/Intake and Output Vital Signs (last 24 hours): Temp Pulse Resp BP Pulse Ox 98.6 F 81 18 133/80 98 09/16/18 12:25 09/16/18 12:25 09/16/18 12:25 09/16/18 12:25 09/16/18 12:25 - Medications Medications: Current Medications Acetaminophen (Tylenol 325mg Tab) 650 mg PO Q6 PRN PRN Reason: Pain, Mild (1-3) Last Admin: 09/16/18 04:18 Dose: 650 mg Albuterol/Ipratropium (Duoneb 3 Mg/0.5 Mg (3 Ml) Ud) 3 ml INH RQ4 [facility] Last Admin: 09/16/18 11:18 Dose: 3 ml Aspirin (Ecotrin) 81 mg PO DAILY [facility] Last Admin: 09/16/18 09:46 Dose: 81 mg Atorvastatin Calcium (Lipitor) 20 mg PO DAILY [facility] Last Admin: 09/16/18 09:46 Dose: 20 mg Dextrose (Dextrose 50% Inj) 0 ml IV STAT PRN; Protocol PRN Reason: Hypoglycemia Protocol Dextrose (Glutose 15) 0 gm PO ONCE PRN; Protocol PRN Reason: Hypoglycemia Protocol Glucagon (Glucagen Diagnostic Kit) 0 mg IM STAT PRN; Protocol PRN Reason: Hypoglycemia Protocol Guaifenesin/Dextromethorphan (Robitussin Dm) 10 ml PO Q6 PRN PRN Reason: Cough Last Admin: 09/15/18 01:56 Dose: 10 ml Hydrochlorothiazide (Microzide) 12.5 mg PO DAILY [facility] Last Admin: 09/16/18 09:47 Dose: 12.5 mg Insulin Human Lispro (Humalog) 0 units SC ACCU-CHECK [facility]RI[facility]; Protocol Last Admin: 09/16/18 13:02 Dose: 6 units Losartan Potassium (Cozaar) 25 mg PO DAILY [facility] Last Admin: 09/16/18 09:45 Dose: 25 mg Metformin HCl (Glucophage) 500 mg PO BID [facility] Last Admin: 09/16/18 09:46 Dose: 500 mg Methylprednisolone (Solu-Medrol) 40 mg IVP Q8 [facility] Last Admin: 09/16/18 09:49 Dose: 40 mg Montelukast Sodium (Singulair) 10 mg PO HS [facility] Last Admin: 09/15/18 21:00 Dose: 10 mg Pantoprazole Sodium (Protonix Inj) 40 mg IVP DAILY [facility] Last Admin: 09/16/18 09:47 Dose: 40 mg Fluticasone/Salmeterol (Advair Diskus 500/50) 1 puff IH Q12 [facility] Last Admin: 09/16/18 09:45 Dose: 1 puff - Labs Labs: 09/16/18 08:15 09/16/18 08:15 Attending/Attestation - Attestation I have personally seen and examined this patient.: Yes I have fully participated in the care of the patient.: Yes I have reviewed all pertinent clinical information, including history, physical exam and plan: Yes Notes (Text): 09/16/18 13:27 Patient seen and examined with resident. Case discussed and agreed with assessment. Patient still with slight wheezing and appeared with some laboured breathing.
[2018-09-17] MEDS: MethylPREDNISolone 40 mg Vial IVP SCH ×3 (01:00→20:46)
[2018-09-17] MEDS: Albuterol-Ipratrop 3 mg / 0.5 (3 ml) UD INH SCH ×5 (03:55→19:05)
[2018-09-17 05:47] LABS: HEMOGLOBIN 13.6 g/dL (12.0-16.0); MEAN CELL VOLUME 88.8 fl (81.0-99.0); MEAN CORPUSCULAR HEMOGLOBIN 30.1 pg (27.0-31.0); MEAN CORPUSCULAR HGB CONC 33.9 g/dL (33.0-37.0); RBC 4.51 Mil/uL (3.80-5.20); RED CELL DISTRIBUTION WIDTH 13.3 % (11.5-14.5); WHITE BLOOD COUNT 12.5 K/uL (4.8-10.8)
[2018-09-17 06:15] LABS: ALB/GLOB RATIO 1.2 (1.0-2.1); ALBUMIN 3.9 g/dL (3.5-5.0); ALT/SGPT 29 U/L (9-52); AST/SGOT 17 U/L (14-36); BLOOD UREA NITROGEN 27 mg/dl (7-17); CALCIUM 9.7 mg/dL (8.4-10.2); GFR NON-AFRICAN AMERICAN > 60
[2018-09-17] MEDS: Insulin Lispro (humaLOG) 100 Units/ml Inj SC SCH ×4 (07:00→22:19)
[2018-09-17] MEDS: Fluticasone-Salmeterol 500-50mcg Diskus IH SCH ×2 (08:26→20:46)
--- NOTE | 2018-09-17 10:20 | CP.PCM.CON ---
History of Present Illness - History of Present Illness History of Present Illness: This 63 year old Nepalese, never smoker female with a 7 year history of Bronchial Asthma was admitted from the emergency room with acute exacerbation of bronchospasm. 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 She does feel slightly improved at this time after receiving aerosol therapy and parenteral corticosteroids. She has no fever, chills or sweats, has been hospitalized before because of Asthma, but never intubated. I am unable to determine the extent of allergy testing to date, and do not find any reports in the EMR regarding this. There is a family history of Asthma in her brother. 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 She does relate having had Pneumonia once in the remote past. She cl aims to sleep poorly at night because of increased symptoms in the supine position. Review of Systems - Constitutional Constitutional: Fatigue - EENT Nose/Mouth/Throat: Epistaxis (mild), Sinus Pressure - Respiratory Respiratory: Cough, Dyspnea, Wheezing - Integumentary Integumentary: Change in Pigmentation (both ankles) Past Patient History - Infectious Disease Hx of Infectious Diseases: None - Past Medical History & Family History Past Medical History?: Yes Pertinent Family History: Bronchial Asthma, Diabetes, Heart disease - Past Social History Smoking Status: Never Smoked Chewing Tobacco Use: No Cigar Use: No Alcohol: None Drugs: Denies - CARDIAC Hx Hypercholesterolemia: Yes Hx Hypertension: Yes Hx Peripheral Edema: Yes Hx Peripheral Vascular Disease: Yes - PULMONARY Hx Asthma: Yes Hx Bronchitis: Yes Hx Pneumonia: Yes - NEUROLOGICAL Hx Neurological Disorder: No - HEENT Hx Sinusitis: Yes - RENAL Hx Chronic Kidney Disease: No - ENDOCRINE/METABOLIC Hx Diabetes Mellitus Type 2: Yes - HEMATOLOGICAL/ONCOLOGICAL Hx Human Immunodeficiency Virus (HIV): No - INTEGUMENTARY Hx Dermatological Problems: No - MUSCULOSKELETAL/RHEUMATOLOGICAL Hx Musculoskeletal Disorders: Yes - GASTROINTESTINAL Hx Diverticulitis: Yes Hx Gastritis: Yes Other/Comment: Fatty liver - GENITOURINARY/GYNECOLOGICAL Hx Genitourinary Disorders: No - PSYCHIATRIC Hx Anxiety: Yes Hx Bipolar Disorder: Yes Hx Depression: Yes - SURGICAL HISTORY Hx Cardiac Catheterization: Yes Hx Hysterectomy: Yes - ANESTHESIA Hx Anesthesia: Yes Hx Anesthesia Reactions: No Hx Malignant Hyperthermia: No Meds Allergies/Adverse Reactions: Allergies Allergy/AdvReac Type Severity Reaction Status Date / Time iodine Allergy RASH Verified 09/14/18 19:32 - Medications Medications: Current Medications Acetaminophen (Tylenol 325mg Tab) 650 mg PO Q6 PRN PRN Reason: Pain, Mild (1-3) Last Admin: 09/16/18 04:18 Dose: 650 mg Albuterol/Ipratropium (Duoneb 3 Mg/0.5 Mg (3 Ml) Ud) 3 ml INH RQ4 [facility] Last Admin: 09/17/18 07:30 Dose: 3 ml Aspirin (Ecotrin) 81 mg PO DAILY [facility] Last Admin: 09/17/18 08:26 Dose: 81 mg Atorvastatin Calcium (Lipitor) 20 mg PO DAILY [facility] Last Admin: 09/17/18 08:25 Dose: 20 mg Dextrose (Dextrose 50% Inj) 0 ml IV STAT PRN; Protocol PRN Reason: Hypoglycemia Protocol Dextrose (Glutose 15) 0 gm PO ONCE PRN; Protocol PRN Reason: Hypoglycemia Protocol Glucagon (Glucagen Diagnostic Kit) 0 mg IM STAT PRN; Protocol PRN Reason: Hypoglycemia Protocol Guaifenesin/Dextromethorphan (Robitussin Dm) 10 ml PO Q6 PRN PRN Reason: Cough Last Admin: 09/15/18 01:56 Dose: 10 ml Hydrochlorothiazide (Microzide) 12.5 mg PO DAILY [facility] Last Admin: 09/17/18 08:26 Dose: 12.5 mg Insulin Human Lispro (Humalog) 0 units SC ACCU-CHECK ENRIQUE; Protocol Last Admin: 09/17/18 07:00 Dose: 6 units Losartan Potassium (Cozaar) 25 mg PO DAILY [facility] Last Admin: 09/17/18 08:26 Dose: 25 mg Metformin HCl (Glucophage) 500 mg PO BID [facility] Last Admin: 09/17/18 08:28 Dose: 500 mg Methylprednisolone (Solu-Medrol) 40 mg IVP Q8 [facility] Last Admin: 09/17/18 08:26 Dose: 40 mg Montelukast Sodium (Singulair) 10 mg PO HS [facility] Last Admin: 09/16/18 21:17 Dose: 10 mg Pantoprazole Sodium (Protonix Inj) 40 mg IVP DAILY [facility] Last Admin: 09/17/18 08:27 Dose: 40 mg Fluticasone/Salmeterol (Advair Diskus 500/50) 1 puff IH Q12 [facility] Last Admin: 09/17/18 08:26 Dose: 1 puff Results - Vital Signs Recent Vital Signs: Last Vital Signs Temp 97.4 F L 09/17/18 08:23 Pulse 71 09/17/18 08:26 Resp 20 09/17/18 08:23 BP 113/67 09/17/18 08:26 Pulse Ox 97 09/17/18 08:23 - Labs Result Diagrams: 09/17/18 04:55 09/17/18 04:55 Labs: Laboratory Results - last 24 hr 09/14/18 09/16/18 09/16/18 07:00 08:15 11:31 WBC RBC Hgb Hct MCV MCH MCHC RDW Plt Count Neutrophils % (Manual) 90 H Band Neutrophils % 1 Lymphocytes % (Manual) 5 L Monocytes % (Manual) 4 Toxic Granulation Present Platelet Estimate Normal Sodium Potassium Chloride Carbon Dioxide Anion Gap BUN Creatinine Est GFR ( Amer) Est GFR (Non-Af Amer) POC Glucose (mg/dL) 320 H Random Glucose Calcium Total Bilirubin AST ALT Alkaline Phosphatase Total Protein Albumin Globulin Albumin/Globulin Ratio Ur L.pneumophila Ag Negative 09/16/18 09/16/18 09/17/18 16:15 21:48 02:26 WBC RBC Hgb Hct MCV MCH MCHC RDW Plt Count Neutrophils % (Manual) Band Neutrophils % Lymphocytes % (Manual) Monocytes % (Manual) Toxic Granulation Platelet Estimate Sodium Potassium Chloride Carbon Dioxide Anion Gap BUN Creatinine Est GFR ( Amer) Est GFR (Non-Af Amer) POC Glucose (mg/dL) 327 H 375 H 303 H Random Glucose Calcium Total Bilirubin AST ALT Alkaline Phosphatase Total Protein Albumin Globulin Albumin/Globulin Ratio Ur L.pneumophila Ag 09/17/18 09/17/18 09/17/18 04:55 04:55 05:09 WBC 12.5 H RBC 4.51 Hgb 13.6 Hct 40.1 MCV 88.8 MCH 30.1 MCHC 33.9 RDW 13.3 Plt Count 303 Neutrophils % (Manual) Band Neutrophils % Lymphocytes % (Manual) Monocytes % (Manual) Toxic Granulation Platelet Estimate Sodium 134 Potassium 4.3 Chloride 100 Carbon Dioxide 22 Anion Gap 16 BUN 27 H Creatinine 0.6 L Est GFR ( Amer) > 60 Est GFR (Non-Af Amer) > 60 POC Glucose (mg/dL) 344 H Random Glucose 347 H Calcium 9.7 Total Bilirubin 0.5 AST 17 ALT 29 Alkaline Phosphatase 110 Total Protein 7.3 Albumin 3.9 Globulin 3.3 Albumin/Globulin Ratio 1.2 Ur L.pneumophila Ag Assessment & Plan (1) Maxillary sinusitis Status: Suspected Priority: High (2) Asthma exacerbation Status: Acute Priority: High (3) Bronchitis Status: Chronic Priority: High - Date & Time Date: 09/17/18 Time: 10:27
--- NOTE | 2018-09-17 12:57 | CP.PCM.PN ---
Subjective - Date & Time of Evaluation Date of Evaluation: 09/17/18 Time of Evaluation: 08:41 - Subjective Subjective: Patient seen and examined this morning, feeling better though still get tired while conversation, and aslo reports sob on ambulation, c/o cough and facial pain since yesterday. No runny nose, sputum production, chills. VSS, afebrile, no acute overnight events. Objective - Vital Signs/Intake and Output Vital Signs (last 24 hours): Temp Pulse Resp BP Pulse Ox 97.4 F L 71 20 113/67 97 09/17/18 08:23 09/17/18 08:26 09/17/18 08:23 09/17/18 08:26 09/17/18 08:23 - Medications Medications: Current Medications Acetaminophen (Tylenol 325mg Tab) 650 mg PO Q6 PRN PRN Reason: Pain, Mild (1-3) Last Admin: 09/16/18 04:18 Dose: 650 mg Albuterol/Ipratropium (Duoneb 3 Mg/0.5 Mg (3 Ml) Ud) 3 ml INH RQ4 [facility] Last Admin: 09/17/18 11:08 Dose: 3 ml Amoxicillin/Clavulanate Potassium (Augmentin 875 Mg-125 Mg Tab) 1 tab PO Q12 [facility]; Protocol Aspirin (Ecotrin) 81 mg PO DAILY [facility] Last Admin: 09/17/18 08:26 Dose: 81 mg Atorvastatin Calcium (Lipitor) 20 mg PO DAILY [facility] Last Admin: 09/17/18 08:25 Dose: 20 mg Dextrose (Dextrose 50% Inj) 0 ml IV STAT PRN; Protocol PRN Reason: Hypoglycemia Protocol Dextrose (Glutose 15) 0 gm PO ONCE PRN; Protocol PRN Reason: Hypoglycemia Protocol Glucagon (Glucagen Diagnostic Kit) 0 mg IM STAT PRN; Protocol PRN Reason: Hypoglycemia Protocol Guaifenesin/Dextromethorphan (Robitussin Dm) 10 ml PO Q6 PRN PRN Reason: Cough Last Admin: 09/15/18 01:56 Dose: 10 ml Hydrochlorothiazide (Microzide) 12.5 mg PO DAILY [facility] Last Admin: 09/17/18 08:26 Dose: 12.5 mg Insulin Human Lispro (Humalog) 0 units SC ACCU-CHECK [facility]RIQUE; Protocol Last Admin: 09/17/18 11:47 Dose: 10 units Losartan Potassium (Cozaar) 25 mg PO DAILY [facility] Last Admin: 09/17/18 08:26 Dose: 25 mg Metformin HCl (Glucophage) 500 mg PO BID [facility] Last Admin: 09/17/18 08:28 Dose: 500 mg Methylprednisolone (Solu-Medrol) 40 mg IVP Q12 [facility] Montelukast Sodium (Singulair) 10 mg PO HS [facility] Last Admin: 09/16/18 21:17 Dose: 10 mg Pantoprazole Sodium (Protonix Inj) 40 mg IVP DAILY [facility] Last Admin: 09/17/18 08:27 Dose: 40 mg Fluticasone/Salmeterol (Advair Diskus 500/50) 1 puff IH Q12 [facility] Last Admin: 09/17/18 08:26 Dose: 1 puff - Labs Labs: 09/17/18 04:55 09/17/18 04:55 - Constitutional Appears: No Acute Distress - Head Exam Head Exam: NORMAL INSPECTION Additional comments: frontal and maxillar tenderness, no nasal or posterior pharynx drainage noted - Respiratory Exam Respiratory Exam: Decreased Breath Sounds (b/l), Clear to Ausculation Bilateral, NORMAL BREATHING PATTERN. absent: Rales, Rhonchi, Wheezes - Cardiovascular Exam Cardiovascular Exam: REGULAR RHYTHM, +S1, +S2. absent: Tachycardia - GI/Abdominal Exam GI & Abdominal Exam: Soft, Normal Bowel Sounds. absent: Tenderness - Extremities Exam Extremities Exam: absent: Calf Tenderness, Pedal Edema - Neurological Exam Neurological Exam: Alert, Awake, CN II-XII Intact, Oriented x3 - Skin Skin Exam: Dry, Warm Assessment and Plan - Assessment and Plan (Free Text) Assessment: 63 yo f with PMhx of htn, DM2, obesity, HLD, Gastric ulcer and asthma admitted for evaluation and management of Refractory asthma exacerbation. --CXR read : mild atelactasis b/l. several tiny nodular denisty on R upper lung that may represent small granulomata --CT Chest on 09/03/18: Stable sub-pleural nodule less than 3 mm apex left lung. No change. Calcified granuloma right upper lobe 4 mm. Parabronchial thickening compatible with lower airway disease/bronchitis. No acute or significant findings related to/ accounting for the clinical presentation. PLAN: Dyspnea and Wheezing Asthma, Severe persistent, uncontrolled - doing better - Afebrile, eosinophilia. - Leukocytosis 12.1 likely 2/2 to steroids - Possibly: Reractory asthma exacerbation, ABPA, fungal infection, Siddharth's pneumonia - Pulmonology Dr Pride consulted, recs appreciated. - Duonebs Q4H - taper Solu-medrol 40mg Q12H - legionella negative - F/U aspergillus screen, TB Quant, Fungitel, Sputum culture, pro-calcitonin, Urine Ag for strep pneumo. - Home meds resumed - Monitor vital signs Acute sinusitis - frontal and maxilar tenderness - afebrile, mild leukocytosis - Start Augmentin 875 BID HTN - controlled - Home meds resumed - Monitor vital signs DM2 with hyperglycemia - likely 2/2 to steroids, start tapering - Home meds resumed - ISS and hypoglycemia protocol HLD - Home meds resumed Hx of gastric ulcer - IV Pantoprazole resumed DVT Prophylaxis - SCDs - Lovenox 40mg SC daily Case seen and examined with Dr Saul Gallardo PGY 2
[2018-09-17] MEDS: Amoxicillin-Clav 875-125 mg Tab PO SCH ×2 (16:58→20:46)
[2018-09-18] MEDS: Albuterol-Ipratrop 3 mg / 0.5 (3 ml) UD INH SCH ×8 (00:13→23:19)
[2018-09-18 05:39] LABS: HEMOGLOBIN 14.2 g/dL (12.0-16.0); MEAN CELL VOLUME 89.4 fl (81.0-99.0); MEAN CORPUSCULAR HEMOGLOBIN 30.3 pg (27.0-31.0); RBC 4.68 Mil/uL (3.80-5.20); RED CELL DISTRIBUTION WIDTH 13.5 % (11.5-14.5); WHITE BLOOD COUNT 10.6 K/uL (4.8-10.8)
[2018-09-18] MEDS: Insulin Lispro (humaLOG) 100 Units/ml Inj SC SCH ×4 (06:05→22:38)
[2018-09-18 06:11] LABS: BLOOD UREA NITROGEN 30 mg/dl (7-17); CALCIUM 9.5 mg/dL (8.4-10.2); GFR NON-AFRICAN AMERICAN > 60
[2018-09-18] MEDS: Fluticasone-Salmeterol 500-50mcg Diskus IH SCH (08:25)
[2018-09-18] MEDS: MethylPREDNISolone 40 mg Vial IVP SCH ×2 (08:27→21:28)
--- NOTE | 2018-09-18 10:23 | CP.PCM.PN ---
Subjective - Date & Time of Evaluation Date of Evaluation: 09/18/18 Time of Evaluation: 10:21 - Subjective Subjective: Claims her breathing feels improved. Vital signs and oxygenation have been stable. Still complains of chest discomfort (pain) on the left. Hyperglycemia is significant on steroids. Sputum is reported as 'normal adrian'. Seems top be breathing comfortably seated up in bed. Appears anxious, but not dyspneic. No dependant edema, no cyanosis. Pharynx is pink and moist. Neck is supple and trachea midline. No palpable lymphadenopathy. No dullness on chest percussion. Equal expansion bilaterally. Breath sounds are well heard bilaterally. No audible wheezes, few rhonchi, no rales. Heart sounds well heard, regular rhythm. Will reduce solumedrol to 30MG Q12H. V/Q lung scan requested. Continue aerosol therapy. Continue antibiotics for 10 days. Continue the aerosol therapy and place Advair on hold for now. Objective - Vital Signs/Intake and Output Vital Signs (last 24 hours): Temp Pulse Resp BP Pulse Ox 98 F 69 18 114/72 95 09/18/18 07:58 09/18/18 08:26 09/18/18 07:58 09/18/18 08:26 09/18/18 07:58 - Medications Medications: Current Medications Acetaminophen (Tylenol 325mg Tab) 650 mg PO Q6 PRN PRN Reason: Pain, Mild (1-3) Last Admin: 09/16/18 04:18 Dose: 650 mg Albuterol/Ipratropium (Duoneb 3 Mg/0.5 Mg (3 Ml) Ud) 3 ml INH RQ4 [facility] Last Admin: 09/18/18 07:49 Dose: 3 ml Amoxicillin/Clavulanate Potassium (Augmentin 875 Mg-125 Mg Tab) 1 tab PO Q12 [facility]; Protocol Last Admin: 09/17/18 20:46 Dose: 1 tab Aspirin (Ecotrin) 81 mg PO DAILY [facility] Last Admin: 09/18/18 08:26 Dose: 81 mg Atorvastatin Calcium (Lipitor) 20 mg PO DAILY [facility] Last Admin: 09/18/18 08:26 Dose: 20 mg Dextrose (Dextrose 50% Inj) 0 ml IV STAT PRN; Protocol PRN Reason: Hypoglycemia Protocol Dextrose (Glutose 15) 0 gm PO ONCE PRN; Protocol PRN Reason: Hypoglycemia Protocol Glucagon (Glucagen Diagnostic Kit) 0 mg IM STAT PRN; Protocol PRN Reason: Hypoglycemia Protocol Guaifenesin/Dextromethorphan (Robitussin Dm) 10 ml PO Q6 PRN PRN Reason: Cough Last Admin: 09/15/18 01:56 Dose: 10 ml Hydrochlorothiazide (Microzide) 12.5 mg PO DAILY [facility] Last Admin: 09/18/18 08:27 Dose: 12.5 mg Insulin Human Lispro (Humalog) 0 units SC ACCU-CHECK [facility]RI[facility]; Protocol Last Admin: 09/18/18 06:05 Dose: 10 units Losartan Potassium (Cozaar) 25 mg PO DAILY [facility] Last Admin: 09/18/18 08:26 Dose: 25 mg Metformin HCl (Glucophage) 500 mg PO BID [facility] Last Admin: 09/18/18 08:26 Dose: 500 mg Montelukast Sodium (Singulair) 10 mg PO HS [facility] Last Admin: 09/17/18 21:00 Dose: 10 mg Pantoprazole Sodium (Protonix Inj) 40 mg IVP DAILY [facility] Last Admin: 09/18/18 08:27 Dose: 40 mg Fluticasone/Salmeterol (Advair Diskus 500/50) 1 puff IH Q12 [facility] Last Admin: 09/18/18 08:25 Dose: 1 puff - Labs Labs: 09/18/18 04:45 09/18/18 04:45 Assessment and Plan (1) Maxillary sinusitis Status: Suspected (2) Asthma exacerbation Status: Acute (3) Bronchitis Status: Chronic
[2018-09-18 11:32] LABS: D.FARINAE (D2) IGE 0.71 kU/L (<0.10); OAK (T7) IGE 2.93 kU/L (<0.10)
[2018-09-18] MEDS: Amoxicillin-Clav 875-125 mg Tab PO SCH ×2 (11:45→21:02)
--- NOTE | 2018-09-18 13:30 | CP.PCM.PN ---
Subjective - Date & Time of Evaluation Date of Evaluation: 09/18/18 Time of Evaluation: 08:32 - Subjective Subjective: Patient seen and examined this morning, feeling much better though still get tired while conversation and on ambulation, cough improving. VSS, afebrile, no acute overnight events. Objective - Vital Signs/Intake and Output Vital Signs (last 24 hours): Temp Pulse Resp BP Pulse Ox 97.4 F L 71 18 141/84 93 L 09/18/18 11:50 09/18/18 11:50 09/18/18 11:50 09/18/18 11:50 09/18/18 11:50 - Medications Medications: Current Medications Acetaminophen (Tylenol 325mg Tab) 650 mg PO Q6 PRN PRN Reason: Pain, Mild (1-3) Last Admin: 09/16/18 04:18 Dose: 650 mg Albuterol/Ipratropium (Duoneb 3 Mg/0.5 Mg (3 Ml) Ud) 3 ml INH RQ4 ENRIQUE Last Admin: 09/18/18 11:10 Dose: 3 ml Amoxicillin/Clavulanate Potassium (Augmentin 875 Mg-125 Mg Tab) 1 tab PO Q12 ENRIQUE; Protocol Last Admin: 09/18/18 11:45 Dose: 1 tab Aspirin (Ecotrin) 81 mg PO DAILY [facility]RIQUE Last Admin: 09/18/18 08:26 Dose: 81 mg Atorvastatin Calcium (Lipitor) 20 mg PO DAILY [facility]RIQUE Last Admin: 09/18/18 08:26 Dose: 20 mg Dextrose (Dextrose 50% Inj) 0 ml IV STAT PRN; Protocol PRN Reason: Hypoglycemia Protocol Dextrose (Glutose 15) 0 gm PO ONCE PRN; Protocol PRN Reason: Hypoglycemia Protocol Glucagon (Glucagen Diagnostic Kit) 0 mg IM STAT PRN; Protocol PRN Reason: Hypoglycemia Protocol Guaifenesin/Dextromethorphan (Robitussin Dm) 10 ml PO Q6 PRN PRN Reason: Cough Last Admin: 09/15/18 01:56 Dose: 10 ml Hydrochlorothiazide (Microzide) 12.5 mg PO DAILY [facility] Last Admin: 09/18/18 08:27 Dose: 12.5 mg Insulin Human Lispro (Humalog) 0 units SC ACCU-CHECK ENRIQUE; Protocol Last Admin: 09/18/18 11:46 Dose: 8 units Losartan Potassium (Cozaar) 25 mg PO DAILY [facility] Last Admin: 09/18/18 08:26 Dose: 25 mg Metformin HCl (Glucophage) 500 mg PO BID [facility] Last Admin: 09/18/18 08:26 Dose: 500 mg Methylprednisolone (Solu-Medrol) 30 mg IVP Q12 [facility] Montelukast Sodium (Singulair) 10 mg PO HS [facility] Last Admin: 09/17/18 21:00 Dose: 10 mg Pantoprazole Sodium (Protonix Inj) 40 mg IVP DAILY [facility] Last Admin: 09/18/18 08:27 Dose: 40 mg Fluticasone/Salmeterol (Advair Diskus 500/50) 1 puff IH Q12 [facility] Last Admin: 09/18/18 08:25 Dose: 1 puff - Labs Labs: 09/18/18 04:45 09/18/18 04:45 - Constitutional Appears: No Acute Distress - Head Exam Head Exam: NORMAL INSPECTION - Respiratory Exam Respiratory Exam: Chest Wall Tenderness, Clear to Ausculation Bilateral, NORMAL BREATHING PATTERN. absent: Accessory Muscle Use - Cardiovascular Exam Cardiovascular Exam: REGULAR RHYTHM, +S1, +S2 - GI/Abdominal Exam GI & Abdominal Exam: Soft, Normal Bowel Sounds. absent: Tenderness - Extremities Exam Extremities Exam: absent: Calf Tenderness, Pedal Edema - Neurological Exam Neurological Exam: Alert, Awake, Oriented x3 - Skin Skin Exam: Dry, Warm Assessment and Plan - Assessment and Plan (Free Text) Assessment: 63 yo f with PMhx of htn, DM2, obesity, HLD, Gastric ulcer and asthma admitted for evaluation and management of Refractory asthma exacerbation. --CXR read : mild atelactasis b/l. several tiny nodular denisty on R upper lung that may represent small granulomata --CT Chest on 09/03/18: Stable sub-pleural nodule less than 3 mm apex left lung. No change. Calcified granuloma right upper lobe 4 mm. Parabronchial thickening compatible with lower airway disease/bronchitis. No acute or significant findings related to/ accounting for the clinical presentation. PLAN: Dyspnea and Wheezing Asthma, Severe persistent, uncontrolled - doing better - Possibly: Reractory asthma exacerbation, ABPA, fungal infection, Siddharth's pneumonia - Pulmonology Dr Pride consulted, recs appreciated. - Duonebs Q4H - taper Solu-medrol 30mg Q12H - legionella negative, HIV neg - F/U aspergillus screen, TB Quant, Fungitel, Sputum culture, pro-calcitonin, Urine Ag for strep pneumo. - Home meds resumed - Monitor vital signs Acute sinusitis - frontal and maxilar tenderness - afebrile, mild leukocytosis - on Augmentin 875 BID HTN - controlled - Home meds resumed - Monitor vital signs DM2 with hyperglycemia - likely 2/2 to steroids, tapering - Home meds resumed - ISS and hypoglycemia protocol HLD - Home meds resumed Hx of gastric ulcer - IV Pantoprazole resumed DVT Prophylaxis - SCDs - Lovenox 40mg SC daily Case seen and examined with Dr Saul Gallardo PGY 2
--- NOTE | 2018-09-18 14:59 | RAD ---
Date of service: 09/18/2018 PROCEDURE: CHEST RADIOGRAPH, 1 VIEW HISTORY: sob COMPARISON: 09/14/2018 FINDINGS: LUNGS: Clear. PLEURA: No pneumothorax or pleural fluid seen. CARDIOVASCULAR: No aortic atherosclerotic calcification present. Normal. OSSEOUS STRUCTURES: Thoracic scoliosis. VISUALIZED UPPER ABDOMEN: Normal. OTHER FINDINGS: None. IMPRESSION: No active disease.
--- NOTE | 2018-09-18 16:28 | NM ---
Date of service: 09/18/2018 COMPARISON: Not available TECHNIQUE: 37.762 mCi technetium 99-m DTPA aerosol. 5.3 mCI technetium 99-m MAA administered intravenously. FINDINGS: VENTILATION COMPONENT: Limited by extensive central tracheobronchial deposition of the inhaled radiopharmaceutical. PERFUSION COMPONENT: No perfusion defects appreciated in either lung. IMPRESSION: Lowprobability ventilation perfusion scan for pulmonary embolism.
[2018-09-18] MEDS ORDERED: methylPREDNISolone 30 MG in Sodium Chloride 0.9% 50 ML IV SCH (21:00)
[2018-09-19] MEDS: Albuterol-Ipratrop 3 mg / 0.5 (3 ml) UD INH SCH ×6 (02:51→23:37)
[2018-09-19 06:00] LABS: HEMOGLOBIN 14.4 g/dL (12.0-16.0); MEAN CELL VOLUME 89.2 fl (81.0-99.0); MEAN CORPUSCULAR HEMOGLOBIN 30.5 pg (27.0-31.0); MEAN CORPUSCULAR HGB CONC 34.1 g/dL (33.0-37.0); RBC 4.72 Mil/uL (3.80-5.20); RED CELL DISTRIBUTION WIDTH 13.4 % (11.5-14.5)
[2018-09-19 06:20] LABS: BLOOD UREA NITROGEN 28 mg/dl (7-17); CALCIUM 9.7 mg/dL (8.4-10.2); GFR NON-AFRICAN AMERICAN > 60
[2018-09-19] MEDS: Insulin Lispro (humaLOG) 100 Units/ml Inj SC SCH ×4 (07:02→22:00)
--- NOTE | 2018-09-19 09:36 | CP.PCM.PN ---
Subjective - Date & Time of Evaluation Date of Evaluation: 09/19/18 Time of Evaluation: 09:34 - Subjective Subjective: Appears to be improving slowly ,but steadily on current regimen. Able to breathe more comfortably. Still having some cough. No audible wheezes, scattered rhonchi in LLs. IgE >1200, allergen panel is pending. Should have referral to Allergy/Immunology as outpatient. Would probably be a good candidate for Fasenra injections. Objective - Vital Signs/Intake and Output Vital Signs (last 24 hours): Temp Pulse Resp BP Pulse Ox 97.8 F 60 18 131/74 94 L 09/19/18 08:12 09/19/18 08:12 09/19/18 08:12 09/19/18 08:12 09/19/18 08:12 - Medications Medications: Current Medications Acetaminophen (Tylenol 325mg Tab) 650 mg PO Q6 PRN PRN Reason: Pain, Mild (1-3) Last Admin: 09/16/18 04:18 Dose: 650 mg Albuterol/Ipratropium (Duoneb 3 Mg/0.5 Mg (3 Ml) Ud) 3 ml INH RQ4 ENRIQUE Last Admin: 09/19/18 08:35 Dose: 3 ml Amoxicillin/Clavulanate Potassium (Augmentin 875 Mg-125 Mg Tab) 1 tab PO Q12 ENRIQUE; Protocol Last Admin: 09/18/18 21:02 Dose: 1 tab Aspirin (Ecotrin) 81 mg PO DAILY [facility]QUE Last Admin: 09/18/18 08:26 Dose: 81 mg Atorvastatin Calcium (Lipitor) 20 mg PO DAILY [facility]QUE Last Admin: 09/18/18 08:26 Dose: 20 mg Dextrose (Dextrose 50% Inj) 0 ml IV STAT PRN; Protocol PRN Reason: Hypoglycemia Protocol Dextrose (Glutose 15) 0 gm PO ONCE PRN; Protocol PRN Reason: Hypoglycemia Protocol Glucagon (Glucagen Diagnostic Kit) 0 mg IM STAT PRN; Protocol PRN Reason: Hypoglycemia Protocol Guaifenesin/Dextromethorphan (Robitussin Dm) 10 ml PO Q6 PRN PRN Reason: Cough Last Admin: 09/15/18 01:56 Dose: 10 ml Hydrochlorothiazide (Microzide) 12.5 mg PO DAILY [facility] Last Admin: 09/18/18 08:27 Dose: 12.5 mg Methylprednisolone 30 mg/ (Sodium Chloride) 50 mls @ 100 mls/hr IV DAILY [facility] Insulin Human Lispro (Humalog) 0 units SC ACCU-CHECK ENRIQUE; Protocol Last Admin: 09/19/18 07:02 Dose: 6 units Losartan Potassium (Cozaar) 25 mg PO DAILY [facility] Last Admin: 09/18/18 08:26 Dose: 25 mg Metformin HCl (Glucophage) 500 mg PO BID [facility] Last Admin: 09/18/18 16:34 Dose: 500 mg Methylprednisolone (Solu-Medrol) 30 mg IVP Q12 [facility] Stop: 09/19/18 23:59 Last Admin: 09/18/18 21:28 Dose: 30 mg Montelukast Sodium (Singulair) 10 mg PO HS [facility] Last Admin: 09/18/18 21:06 Dose: 10 mg Pantoprazole Sodium (Protonix Inj) 40 mg IVP DAILY [facility] Last Admin: 09/18/18 08:27 Dose: 40 mg Fluticasone/Salmeterol (Advair Diskus 500/50) 1 puff IH Q12 [facility] Last Admin: 09/18/18 08:25 Dose: 1 puff - Labs Labs: 09/19/18 04:25 09/19/18 04:25 Assessment and Plan (1) Maxillary sinusitis Status: Suspected (2) Asthma exacerbation Status: Acute (3) Bronchitis Status: Chronic
[2018-09-19] MEDS: Amoxicillin-Clav 875-125 mg Tab PO SCH ×2 (10:04→20:56)
[2018-09-19] MEDS: MethylPREDNISolone 40 mg Vial IVP SCH ×2 (10:08→20:53)
--- NOTE | 2018-09-19 13:51 | CP.PCM.PN ---
Subjective - Date & Time of Evaluation Date of Evaluation: 09/19/18 Time of Evaluation: 09:21 - Subjective Subjective: Patient seen and examined this morning, feeling much better though reports chest pain in the left side while coughing. No neck pain, diaphoresis, dizziness, MAC, sob or palpitations. VSS, afebrile, no acute overnight events. Objective - Vital Signs/Intake and Output Vital Signs (last 24 hours): Temp Pulse Resp BP Pulse Ox 98.2 F 65 18 133/80 92 L 09/19/18 11:53 09/19/18 11:53 09/19/18 11:53 09/19/18 11:53 09/19/18 11:53 - Medications Medications: Current Medications Acetaminophen (Tylenol 325mg Tab) 650 mg PO Q6 PRN PRN Reason: Pain, Mild (1-3) Last Admin: 09/16/18 04:18 Dose: 650 mg Albuterol/Ipratropium (Duoneb 3 Mg/0.5 Mg (3 Ml) Ud) 3 ml INH RQ4 ENRIQUE Last Admin: 09/19/18 11:32 Dose: 3 ml Amoxicillin/Clavulanate Potassium (Augmentin 875 Mg-125 Mg Tab) 1 tab PO Q12 ENRIQUE; Protocol Last Admin: 09/19/18 10:04 Dose: 1 tab Aspirin (Ecotrin) 81 mg PO DAILY [facility]QUE Last Admin: 09/19/18 10:05 Dose: 81 mg Atorvastatin Calcium (Lipitor) 20 mg PO DAILY [facility] Last Admin: 09/19/18 10:06 Dose: 20 mg Dextrose (Dextrose 50% Inj) 0 ml IV STAT PRN; Protocol PRN Reason: Hypoglycemia Protocol Dextrose (Glutose 15) 0 gm PO ONCE PRN; Protocol PRN Reason: Hypoglycemia Protocol Glucagon (Glucagen Diagnostic Kit) 0 mg IM STAT PRN; Protocol PRN Reason: Hypoglycemia Protocol Guaifenesin/Dextromethorphan (Robitussin Dm) 10 ml PO Q6 PRN PRN Reason: Cough Last Admin: 09/15/18 01:56 Dose: 10 ml Hydrochlorothiazide (Microzide) 12.5 mg PO DAILY [facility] Last Admin: 09/19/18 10:06 Dose: 12.5 mg Insulin Human Lispro (Humalog) 0 units SC ACCU-CHECK ENRIQUE; Protocol Last Admin: 09/19/18 12:47 Dose: 6 units Losartan Potassium (Cozaar) 25 mg PO DAILY [facility] Last Admin: 09/19/18 10:05 Dose: 25 mg Metformin HCl (Glucophage) 500 mg PO BID [facility] Last Admin: 09/19/18 10:05 Dose: 500 mg Methylprednisolone (Solu-Medrol) 30 mg IVP Q12 [facility] Stop: 09/19/18 23:59 Last Admin: 09/19/18 10:08 Dose: 30 mg Methylprednisolone (Medrol) 30 mg PO DAILY [facility] Montelukast Sodium (Singulair) 10 mg PO HS [facility] Last Admin: 09/18/18 21:06 Dose: 10 mg Naproxen (Naproxen) 500 mg PO Q12 [facility] Pantoprazole Sodium (Protonix Inj) 40 mg IVP DAILY [facility] Last Admin: 09/19/18 10:06 Dose: 40 mg Fluticasone/Salmeterol (Advair Diskus 500/50) 1 puff IH Q12 [facility] Last Admin: 09/18/18 08:25 Dose: 1 puff - Labs Labs: 09/19/18 04:25 09/19/18 04:25 - Constitutional Appears: No Acute Distress - Head Exam Head Exam: NORMAL INSPECTION - Respiratory Exam Respiratory Exam: Clear to Ausculation Bilateral, NORMAL BREATHING PATTERN. absent: Accessory Muscle Use - Cardiovascular Exam Cardiovascular Exam: REGULAR RHYTHM, +S1, +S2. absent: Tachycardia Additional comments: L sided chest reproducible pain on palpitation. - GI/Abdominal Exam GI & Abdominal Exam: Soft, Normal Bowel Sounds. absent: Distended, Tenderness - Extremities Exam Extremities Exam: absent: Calf Tenderness, Pedal Edema - Neurological Exam Neurological Exam: Alert, Awake, CN II-XII Intact, Oriented x3 - Skin Skin Exam: Dry, Warm Assessment and Plan - Assessment and Plan (Free Text) Assessment: 63 yo f with PMhx of htn, DM2, obesity, HLD, Gastric ulcer and asthma admitted for evaluation and management of Refractory asthma exacerbation. - CXR read : mild atelactasis b/l. several tiny nodular denisty on R upper lung that may represent small granulomata - CT Chest on 09/03/18: Stable sub-pleural nodule less than 3 mm apex left lung. No change. Calcified granuloma right upper lobe 4 mm. Parabronchial thickening compatible with lower airway disease/bronchitis. No acute or significant findings related to/ accounting for the clinical presentation. - V/Q scan 09/18/18: low probability of PE Plan: Dyspnea and Wheezing Asthma, Severe persistent, improving - Possibly: Reractory asthma exacerbation, ABPA, fungal infection, Siddharth's pneumonia - Pulmonology Dr Pride consulted, recs appreciated. - Duonebs Q4H - taper Solu-medrol 30mg daily - negative for aspergillus screen, Fungitel, Urine Ag for strep pneumo. - Sputum culture negative - Home meds resumed - reproducible CP, EKG NSR, no acute changes - Monitor vital signs Acute sinusitis - frontal and maxilar tenderness - afebrile, mild leukocytosis - on Augmentin 875 BID - naprosyn BID HTN - controlled - Home meds resumed - Monitor vital signs DM2 with hyperglycemia - likely 2/2 to steroids, tapering - Home meds resumed - ISS and hypoglycemia protocol HLD - Home meds resumed Hx of gastric ulcer - IV Pantoprazole resumed DVT Prophylaxis - SCDs - Lovenox 40mg SC daily Case seen and examined with Dr Saul Gallardo PGY 2
[2018-09-19] MEDS: Naproxen 500 MG TAB PO SCH ×2 (17:32→20:54)
--- NOTE | 2018-09-19 19:29 | CARD ---
APPROVED REPORT Date of service: 09/19/2018 EKG Measurement Heart [id number] <Conclusion> Normal sinus rhythm Normal ECG
[2018-09-20] MEDS: Albuterol-Ipratrop 3 mg / 0.5 (3 ml) UD INH SCH ×4 (03:38→15:28)
[2018-09-20] MEDS: Insulin Lispro (humaLOG) 100 Units/ml Inj SC SCH ×3 (06:33→17:11)
[2018-09-20] MEDS ORDERED: MethylPREDNISolone 40 mg Vial IVP SCH (09:00)
[2018-09-20] MEDS ORDERED: methylPREDNISolone 30 MG in Sodium Chloride 0.9% 50 ML IV SCH (09:00)
[2018-09-20] MEDS: Amoxicillin-Clav 875-125 mg Tab PO SCH (09:27)
[2018-09-20] MEDS: Naproxen 500 MG TAB PO SCH (09:29)
--- NOTE | 2018-09-20 11:00 | CP.PCM.PN ---
Subjective - Date & Time of Evaluation Date of Evaluation: 09/20/18 Time of Evaluation: 10:56 - Subjective Subjective: Seen sitting up in bed. Complains of dizziness earlier this AM. States that her breathing feels better. On exam there are no wheezes or rales, few rhonchi. Allery panel shows multiple potential triggers; dust, grass and trees. She should be referred to an woodworking craftsman as an outpatient. Steroid dose again decreased to 20MG daily. This dose reduction can continue on a daily basis (4MG each day). Objective - Vital Signs/Intake and Output Vital Signs (last 24 hours): Temp Pulse Resp BP Pulse Ox 98 F 63 18 132/79 94 L 09/20/18 08:00 09/20/18 09:27 09/20/18 08:00 09/20/18 09:27 09/20/18 08:00 - Medications Medications: Current Medications Acetaminophen (Tylenol 325mg Tab) 650 mg PO Q6 PRN PRN Reason: Pain, Mild (1-3) Last Admin: 09/16/18 04:18 Dose: 650 mg Albuterol/Ipratropium (Duoneb 3 Mg/0.5 Mg (3 Ml) Ud) 3 ml INH RQID ENRIQUE Amoxicillin/Clavulanate Potassium (Augmentin 875 Mg-125 Mg Tab) 1 tab PO Q12 ENRIQUE; Protocol Last Admin: 09/20/18 09:27 Dose: 1 tab Aspirin (Ecotrin) 81 mg PO DAILY [facility] Last Admin: 09/20/18 09:28 Dose: 81 mg Atorvastatin Calcium (Lipitor) 20 mg PO DAILY [facility] Last Admin: 09/20/18 09:28 Dose: 20 mg Dextrose (Dextrose 50% Inj) 0 ml IV STAT PRN; Protocol PRN Reason: Hypoglycemia Protocol Dextrose (Glutose 15) 0 gm PO ONCE PRN; Protocol PRN Reason: Hypoglycemia Protocol Glucagon (Glucagen Diagnostic Kit) 0 mg IM STAT PRN; Protocol PRN Reason: Hypoglycemia Protocol Guaifenesin/Dextromethorphan (Robitussin Dm) 10 ml PO Q6 PRN PRN Reason: Cough Last Admin: 09/15/18 01:56 Dose: 10 ml Hydrochlorothiazide (Microzide) 12.5 mg PO DAILY [facility] Last Admin: 09/20/18 09:29 Dose: 12.5 mg Insulin Human Lispro (Humalog) 0 units SC ACCU-CHECK ENRIQUE; Protocol Last Admin: 09/20/18 06:33 Dose: 6 units Losartan Potassium (Cozaar) 25 mg PO DAILY [facility] Last Admin: 09/20/18 09:27 Dose: 25 mg Metformin HCl (Glucophage) 500 mg PO BID [facility] Last Admin: 09/20/18 09:28 Dose: 500 mg Methylprednisolone (Medrol) 20 mg PO DAILY [facility] Montelukast Sodium (Singulair) 10 mg PO HS [facility] Last Admin: 09/19/18 21:01 Dose: 10 mg Naproxen (Naproxen) 500 mg PO Q12 [facility] Last Admin: 09/20/18 09:29 Dose: 500 mg Pantoprazole Sodium (Protonix Inj) 40 mg IVP DAILY [facility] Last Admin: 09/20/18 09:29 Dose: 40 mg Fluticasone/Salmeterol (Advair Diskus 500/50) 1 puff IH Q12 [facility] Last Admin: 09/18/18 08:25 Dose: 1 puff - Labs Labs: 09/19/18 04:25 09/19/18 04:25 Assessment and Plan (1) Maxillary sinusitis Status: Suspected (2) Asthma exacerbation Status: Acute (3) Bronchitis Status: Chronic
--- NOTE | 2018-09-20 12:58 | CP.PCM.DIS ---
Provider - Provider Date of Admission: 09/16/18 16:05 Attending physician: Kenneth Hughes MD Consults: 09/17/18 09:10 Pulmonology Consult Routine Comment: Consulting Provider: Bud Pride Consulting Physician: Bud Pride Reason for Consult: Asthma exacerbation Time Spent in preparation of Discharge (in minutes): 38 Diagnosis - Discharge Diagnosis (1) Asthma with severe exacerbation Status: Acute Priority: High (2) Maxillary sinusitis Status: Suspected Priority: High (3) Costochondritis Status: Acute (4) Diabetes mellitus Status: Acute Hospital Course - Lab Results Lab Results: Micro Results 09/15/18 16:49 Sputum Gram Stain - Final 09/15/18 16:49 Sputum Sputum Culture - Final NORMAL ORAL [place] Most Recent Lab Values WBC 11.0 K/uL (4.8-10.8) H 09/19/18 04:25 RBC 4.72 Mil/uL (3.80-5.20) 09/19/18 04:25 Hgb 14.4 g/dL (12.0-16.0) 09/19/18 04:25 Hct 42.1 % (34.0-47.0) 09/19/18 04:25 MCV 89.2 fl (81.0-99.0) 09/19/18 04:25 MCH 30.5 pg (27.0-31.0) 09/19/18 04:25 MCHC 34.1 g/dL (33.0-37.0) 09/19/18 04:25 RDW 13.4 % (11.5-14.5) 09/19/18 04:25 Plt Count 327 K/uL (130-400) 09/19/18 04:25 MPV 8.0 fl (7.2-11.7) 09/16/18 08:15 Neut % (Auto) 89.2 % (50.0-75.0) H 09/16/18 08:15 Lymph % (Auto) 7.5 % (20.0-40.0) L 09/16/18 08:15 [place] % (Auto) 2.8 % (0.0-10.0) 09/16/18 08:15 Eos % (Auto) 0.1 % (0.0-4.0) 09/16/18 08:15 Baso % (Auto) 0.4 % (0.0-2.0) 09/16/18 08:15 Neut # (Auto) 10.8 K/uL (1.8-7.0) H 09/16/18 08:15 Lymph # (Auto) 0.9 K/uL (1.0-4.3) L 09/16/18 08:15 [place]cl[place] # (Auto) 0.3 K/uL (0.0-0.8) 09/16/18 08:15 Eos # (Auto) 0.0 K/uL (0.0-0.7) 09/16/18 08:15 Baso # (Auto) 0.1 K/uL (0.0-0.2) 09/16/18 08:15 Neutrophils % (Manual) 90 % (42-75) H 09/16/18 08:15 Band Neutrophils % 1 % (0-2) 09/16/18 08:15 Lymphocytes % (Manual) 5 % (20-50) L 09/16/18 08:15 Monocytes % (Manual) 4 % (0-10) 09/16/18 08:15 Toxic Granulation Present 09/16/18 08:15 Platelet Estimate Normal (NORMAL) 09/16/18 08:15 Sodium 135 mmol/l (132-148) 09/19/18 04:25 Potassium 4.1 MMOL/L (3.6-5.0) 09/19/18 04:25 Chloride 95 mmol/L (98-107) L 09/19/18 04:25 Carbon Dioxide 27 mmol/L (22-30) 09/19/18 04:25 Anion Gap 17 (10-20) 09/19/18 04:25 BUN 28 mg/dl (7-17) H 09/19/18 04:25 Creatinine 0.7 mg/dl (0.7-1.2) 09/19/18 04:25 Est GFR ( Amer) > 60 09/19/18 04:25 Est GFR (Non-Af Amer) > 60 09/19/18 04:25 POC Glucose (mg/dL) 286 mg/dL (65-110) H 09/20/18 10:47 Random Glucose 365 mg/dL (65-105) H 09/19/18 04:25 Calcium 9.7 mg/dL (8.4-10.2) 09/19/18 04:25 Magnesium 2.2 MG/DL (1.6-2.3) 09/16/18 08:15 Total Bilirubin 0.5 mg/dl (0.2-1.3) 09/17/18 04:55 AST 17 U/L (14-36) 09/17/18 04:55 ALT 29 U/L (9-52) 09/17/18 04:55 Alkaline Phosphatase 110 U/L (38-126) 09/17/18 04:55 NT-Pro-B Natriuret Pep 87.2 pg/ml (0-900) 09/15/18 04:30 Total Protein 7.3 G/DL (6.3-8.2) 09/17/18 04:55 Albumin 3.9 g/dL (3.5-5.0) 09/17/18 04:55 Globulin 3.3 gm/dL (2.2-3.9) 09/17/18 04:55 Albumin/Globulin Ratio 1.2 (1.0-2.1) 09/17/18 04:55 Procalcitonin 0.09 NG/ML (0.19-0.49) L 09/15/18 04:30 A. tenuis Allergen IgE 0.10 kU/L (<0.10) H 09/17/18 10:45 A. tenuis Conven Class 0/1 H 09/17/18 10:45 Aspergillus fumigatus <0.10 kU/L (<0.10) 09/17/18 10:45 A. fumigatus ASM Class 0 09/17/18 10:45 Cladosporium herbarum 1.67 kU/L (<0.10) H 09/17/18 10:45 C. herbarum ASM Class 2 H 09/17/18 10:45 D. farinae IgE Class 2 H 09/17/18 10:45 D. farinae Allrgen IgE 0.71 kU/L (<0.10) H 09/17/18 10:45 D. pteronyssinus Class 1 H 09/17/18 10:45 D. pteronyssinus IgE 0.51 kU/L (<0.10) H 09/17/18 10:45 Penicillium notatum 0.11 kU/L (<0.10) H 09/17/18 10:45 P, notatum ASM Class 0/1 H 09/17/18 10:45 Birch [place] Class 2 H 09/17/18 10:45 [place] Tree Allrg 2.31 kU/L (<0.10) H 09/17/18 10:45 [place] Conven Cls 2 H 09/17/18 10:45 [place]m Tree Allergen 3.10 kU/L (<0.10) H 09/17/18 10:45 Elm [place] Class 2 H 09/17/18 10:45 Maple ([place]) Allg 2.94 kU/L (<0.10) H 09/17/18 10:45 Maple [place] Clss 2 H 09/17/18 10:45 [place] Tree Allerg 2.38 kU/L (<0.10) H 09/17/18 10:45 [place] Class 2 H 09/17/18 10:45 [place] Class 2 H 09/17/18 10:45 [place] Tree Allergen 2.93 kU/L (<0.10) H 09/17/18 10:45 [place] Tree ASM Class 2 H 09/17/18 10:45 Silver Birch Allergen 2.06 kU/L (<0.10) H 09/17/18 10:45 [place] Tree Allergen 3.24 kU/L (<0.10) H 09/17/18 10:45 [place] Class 2 H 09/17/18 10:45 [place] Tree Allergen 3.09 kU/L (<0.10) H 09/17/18 10:45 [place] Class 2 H 09/17/18 10:45 [place] Tree Allerg 3.19 kU/L (<0.10) H 09/17/18 10:45 White [place] Clss 2 H 09/17/18 10:45 White [place] Allergen 2.18 kU/L (<0.10) H 09/17/18 10:45 [place] Grass Allergen 3.82 kU/L (<0.10) H 09/17/18 10:45 [place] Grass [place] Cl 3 H 09/17/18 10:45 [place] Grass Allergen 3.05 kU/L (<0.10) H 09/17/18 10:45 [place] Grass Cnvnt Cls 2 H 09/17/18 10:45 Common Pigweed Allerg 2.33 kU/L (<0.10) H 09/17/18 10:45 Common Ragweed Allergen 3.17 kU/L (<0.10) H 09/17/18 10:45 Comm Ragweed Cnvnt Cls 2 H 09/17/18 10:45 Mugwort Allergen 2.58 kU/L (<0.10) H 09/17/18 10:45 Mugwort Conventional 2 H 09/17/18 10:45 Pigweed Conventional 2 H 09/17/18 10:45 Sheep [place] Allergen 3.84 kU/L (<0.10) H 09/17/18 10:45 Sheep [place] Conven Cls 3 H 09/17/18 10:45 Cat Dander Allergen <0.10 kU/L (<0.10) 09/17/18 10:45 Cat Dander [place] Class 0 09/17/18 10:45 Dog Dander IgE Allergen 0.13 kU/L (<0.10) H 09/17/18 10:45 Dog Dander [place] Cls 0/1 H 09/17/18 10:45 Mouse Urine Allergen <0.10 kU/L (<0.10) 09/17/18 10:45 Mouse Urine Conven Clss 0 09/17/18 10:45 Cockroach Allergen 5.24 kU/L (<0.10) H 09/17/18 10:45 Cockroach [place] Clss 3 H 09/17/18 10:45 Urine Color Yellow (YELLOW) 09/15/18 00:47 Urine Clarity Clear (Clear) 09/15/18 00:47 Urine pH 6.0 (5.0-8.0) 09/15/18 00:47 Ur Specific [place] 1.023 (1.003-1.030) 09/15/18 00:47 Urine Protein Negative mg/dL (NEGATIVE) 09/15/18 00:47 Urine Glucose (UA) 150 mg/dL (NEGATIVE) 09/15/18 00:47 Urine Ketones Negative mg/dL (NEGATIVE) 09/15/18 00:47 Urine Blood Negative (NEGATIVE) 09/15/18 00:47 Urine Nitrate Negative (NEGATIVE) 09/15/18 00:47 Urine Bilirubin Negative (NEGATIVE) 09/15/18 00:47 Urine Urobilinogen 0.2-1.0 mg/dL (0.2-1.0) 09/15/18 00:47 Ur Leukocyte Esterase Small [place]/uL (Negative) 09/15/18 00:47 Urine RBC (Auto) 1 /hpf (0-3) 09/15/18 00:47 Urine Microscopic WBC 9 /hpf (0-5) H 09/15/18 00:47 Ur Squamous Epith Cells < 1 /hpf (0-5) 09/15/18 00:47 Urine Bacteria Rare (<OCC) 09/15/18 00:47 IgE 1472 kU/L (<qy=658) H 09/17/18 10:45 HIV-1 Ab Rapid Screen Non reactive (NON REAC) 09/18/18 04:45 Ur L.pneumophila Ag Negative (NEGATIVE) 09/14/18 07:00 Aspergillus Antigen Not detected (Not Detected) 09/15/18 04:30 Aspergillus Index Value 0.10 (<0.50) 09/15/18 04:30 TB Test Antigen - Nil IU/mL (()) 09/15/18 04:30 TB Test (QFT) TNP 09/15/18 04:30 - Hospital Course Hospital Course: 63 y/o F with a PMHx of HTN, DM2, obesity, HLD, gastric ulcer and asthma is admitted for evaluation and management of asthma exacerbation, SOB and wheezing. Pt administered 2 doses of Epinephrine with no control. CXR :no consolidation, cardiomegaly. CT Chest on 09/03/18: Stable sub-pleural nodule less than 3 mm apex left lung. No change. Calcified granuloma right upper lobe 4 mm. Parabronchial thickening compatible with lower airway disease/bronchitis. No acute or significant findings related to/ accounting for the clinical presentation. V/Q: low probability of PE. Patient started on duonebs, IV solumedrol, O2 2L NC, Admission complicated with acute sinusitis started on augmentin BID. Pulmonology Dr Pride consulted. Aspergillus screen, Fungitel, Sputum culture, pro-calcitonin, Urine Ag for strep pneumo and legionella negative. Sputum cx negative. Patient condition improved and was discharged home in stable condition. Patient with instructions to f/u with Pulmo, [facility] and PCP. Rx sent to pharmacy to complete 7 days of abx, medrol pack, rest of home meds resumed. Discharge Exam - Head Exam Head Exam: NORMAL INSPECTION - Respiratory Exam Respiratory Exam: Clear to PA & Lateral, NORMAL BREATHING PATTERN - Cardiovascular Exam Cardiovascular Exam: REGULAR RHYTHM, +S1, +S2. absent: Tachycardia - GI/Abdominal Exam GI & Abdominal Exam: Normal Bowel Sounds, Soft. absent: Tenderness - Neurological Exam Neurological exam: Alert, CN II-XII Intact, Oriented x3 - Skin Skin Exam: Dry, Warm Discharge Plan - Discharge Medications Prescriptions: Methylprednisolone [Medrol Dose Pack (21 tabs)] 4 mg PO ASDIR #21 mg Naproxen 500 mg PO Q12 14 Days #28 tab - Follow Up Plan Condition: IMPROVED Disposition: HOME/ ROUTINE Instructions: Asthma, Adult (DC), Costochondritis (DC) Referrals: at [place] [Outside] Bud Pride MD [Staff Provider] - Kenneth Hughes MD [Staff Provider] -
[2018-09-20 16:17] VITALS: BP 128/77; PULSE 79; RESP 16; TEMP 98.1; O2SAT 96
== END 2018-09-20 18:00 | disposition home or self-care (01) | DRG 202 ==
LOC: H.ER 19:20 → H.ERHOLD 21:00 → H.TEL 22:32 → OBSVTOIN 09-16 16:05
PROVIDERS: ADMIT Family Medicine; ATTEND Family Medicine
PROC: 3E0234Z Introduction of Serum, Toxoid and Vaccine into Muscle, Percutaneous Approach (ICD-10-PCS; principal; 2018-09-14)
DX: J45.51 Severe persistent asthma with (acute) exacerbation (principal); K57.92 Diverticulitis of intestine, part unspecified, without perforation or abscess without bleeding; I10 Essential (primary) hypertension; F41.9 Anxiety disorder, unspecified; F32.9 Major depressive disorder, single episode, unspecified; E78.00 Pure hypercholesterolemia, unspecified; K29.70 Gastritis, unspecified, without bleeding; Z23 Encounter for immunization; E66.9 Obesity, unspecified; Z90.710 Acquired absence of both cervix and uterus; K25.9 Gastric ulcer, unspecified as acute or chronic, without hemorrhage or perforation; M94.0 Chondrocostal junction syndrome [Tietze]; J42 Unspecified chronic bronchitis; J01.00 Acute maxillary sinusitis, unspecified; E11.65 Type 2 diabetes mellitus with hyperglycemia; E78.5 Hyperlipidemia, unspecified; K76.0 Fatty (change of) liver, not elsewhere classified; Z79.82 Long term (current) use of aspirin; Z82.49 Family history of ischemic heart disease and other diseases of the circulatory system; Z82.5 Family history of asthma and other chronic lower respiratory diseases; Z83.3 Family history of diabetes mellitus; Z87.01 Personal history of pneumonia (recurrent); Z87.11 Personal history of peptic ulcer disease